=== PATIENT | male | born 1940 | race Caucasian/White ===

== ENCOUNTER → 2016-08-01 | Outpatient (CLI) | payer MEDICARE ==
[2015-11-30 00:46] VITALS: BP 171/69
[~2016-08-01] MED LIST: ASPI-482 PO; BACL10TA PO; BUPIVACAINE MPF 0.25% 10 ML VIAL. ONE; CINN500C PO; FENO160T PO; FLUT16SP NS; GLUC1TAB71 PO; LISI-338 PO; LISI10TA2 PO; LORA10TA68 PO; METF500T4 PO; MULT-18 PO; NIAC500T9 PO; OMEG1CAP6 PO; OTHER; SIMV40TA PO; TAMS0.4C2 PO; [UNRECOGNIZED DRUG - OTHER]; methylPREDNISolone ACETATE 40 MG/ML VIAL. ONE
--- NOTE | 2016-08-02 02:08 | PAIN ---
DATE OF SERVICE: 08/01/2016 PROGRESS NOTE DIAGNOSES: 1. Myofascial pain. 2. Low back pain. HISTORY OF PRESENT ILLNESS: The patient is a 75-year-old male who returns for followup, last seen in 03/2016. The patient underwent trigger point injections at that time with very good results, approximately 75-80% improvement. The patient reports the pain has been returning now and he has been late getting back for followup as he had other issues going on with his 's health and has had to deal with these first. The patient reports significant pain now in the base of the neck, shoulders, upper back, mid back, low back, left gluteus and hips bilaterally, worse with movement, worse in the morning with getting up and around. The patient reports the pain as an 8-9 on a scale 10 today, reports that he has been doing stretching and strengthening exercises as well as heat applications and ice applications, although has a significant tightness and stiffness throughout the regions of the neck, upper back, mid back, low back and hips, left greater than right. The patient reports no new motor or sensory deficits, no new bowel or bladder incontinence or other complaints. PHYSICAL EXAMINATION: VITAL SIGNS: The patient's blood pressure is 148/78, pulse 63, respirations 18, temperature is 98.1 degrees Fahrenheit, and weight is 178 pounds. GENERAL: The patient is awake, alert, oriented, appropriate, very pleasant demeanor. HEENT: Shows normocephalic, atraumatic. Extraocular movements are intact and symmetrical. Oral cavity shows mucous membranes are moist and pink. Dentition is intact. NECK: Shows anterior throat supple without palpable lymphadenopathy noted. Swallow reflex is symmetrical. CHEST: Shows normal on inspection. Breath sounds are clear to auscultation bilaterally. HEART: Shows S1 and S2 clear. ABDOMEN: Soft, nontender, and nondistended. No palpable organomegaly is noted. No rebound or guarding demonstrated. BACK: The patient's back shows spine grossly in midline. Normal appearing cervical lordotic curvature, thoracic kyphotic curvature, and lumbar lordotic curvature. Lumbar paraspinous musculature is moderately tender with palpation bilaterally with multiple areas of rope-like musculature, which are consistent with trigger point areas muscles in the upper, middle and lower distribution of the lumbar paraspinous muscles, slightly more on the left than the right, also in the left gluteus with very firm rope-like musculature, very tender with palpation, some mild areas on the right side, but much more severe on the left with palpation. The patient's thoracic spine shows multiple areas, left greater than right of trigger point region of musculature, very firm rope-like muscles without specific radiation on palpation. This is true in the trapezius musculature as well as the rhomboid muscles and the cervical paraspinous musculature shows the inferior aspect bilaterally, equal in tenderness as well as equal in tenderness on the trapezius musculature bilaterally. EXTREMITIES: Lower extremities show deep tendon reflexes 1+ in the patellar and tendo calcaneus tendons. Motor exam is strong with 5/5 dorsiflexion, extension, quadriceps and hamstring flexion and equal. Upper extremities show deep tendon reflexes at 2+ in the biceps and triceps tendons. Motor exam is strong with protection specialist strength rated at 5/5, bicep and tricep flexion intact and 5/5 and equal as well. PLAN: Options were discussed with the patient. The patient's old chart was reviewed and his current medication regimen and updated. Current review of systems updated today as well. We will proceed with trigger point injections of the aforementioned musculature today. Risks were again discussed including, but not limited to bleeding, infection, possibility of intravascular injection sequelae, pneumothorax, side effects of steroid medication, spread of local anesthetic and numbness and poor results regarding pain control. The patient understands and wished to proceed. The patient will return to clinic in approximately 4 weeks for followup. He was counseled on return appointment, activity level and side effects to be aware of. DIAGNOSES: 1. Myofascial pain. 2. Low back pain. PROCEDURE: Trigger point injections of the bilateral cervical paraspinous musculature, bilateral trapezius musculature, bilateral rhomboid musculature, bilateral thoracic and lumbar paraspinous musculature and left gluteus musculature using sterile prep and drape with local anesthetic. MEDICATIONS INJECTED: A total of 40 mg of Depo-Medrol plus total of 16 mL of 0.25% bupivacaine with negative aspiration at each site. CONDITION AT DISCHARGE: Stable. The patient tolerated procedure well, had no complications. CEM SEALS MD DR: HOLDEN/vanessa JOB#: [id number] / [id number]
== END | disposition home or self-care (01) ==
LOC: PNCL 08:44
PROVIDERS: ATTEND Anesthesiology
DX: M79.1 Myalgia (principal); E11.9 Type 2 diabetes mellitus without complications; I10 Essential (primary) hypertension; E78.00 Pure hypercholesterolemia, unspecified; Z98.49 Cataract extraction status, unspecified eye; Z85.828 Personal history of other malignant neoplasm of skin
CPT/HCPCS: 20553; J1030; J3490

== ENCOUNTER 2016-08-29 13:08 | Inpatient (IN) | payer MEDICARE ==
[~2016-08-29] VITALS: Ht 177.8 cm; Wt 79.8 kg
[~2016-08-29 13:08] MED LIST changes: -BUPIVACAINE MPF 0.25% 10 ML VIAL. ONE; -methylPREDNISolone ACETATE 40 MG/ML VIAL. ONE
[2016-08-29 13:54] LABS: BASO % 1 % (0-3); EOS % 1 % (0-3); HEMOGLOBIN 12.9 g/dL (13.0-17.5); LYMPH # 1.2 x10^3/uL (1.0-4.8); LYMPH % 17 % (24-48); MEAN CORPUSCULAR HEMOGLOBIN 29 pg (25-35); MEAN CORPUSCULAR HGB CONC 34 g/dL (31-37); MEAN CORPUSCULAR VOLUME 85 fL (79-100); MONO % 6 % (0-9); NEUT % 76 % (31-73); PLATELET COUNT 204 x10^3/uL (140-400); RED BLOOD COUNT 4.48 x10^6/uL (4.30-5.70); RED CELL DISTRIBUTION WIDTH 13.9 % (11.5-14.5)
[2016-08-29 14:09] LABS: BILIRUBIN,URINE NEGATIVE (NEG); GLUCOSE,URINE NEGATIVE (NEG); NITRITE,URINE NEGATIVE (NEG); PROTEIN,URINE NEGATIVE (NEG-TRACE); UROBILINOGEN,URINE 0.2 mg/dL (0.2 mg/dL)
--- NOTE | 2016-08-29 14:13 | EKG ---
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
[2016-08-29 14:14] LABS: CREATININE 1.8 mg/dL (0.7-1.3); GFR 36.9; POTASSIUM 4.1 mmol/L (3.5-5.1)
[2016-08-29 14:20] LABS: ALBUMIN 3.8 g/dL (3.4-5.0); ALBUMIN/GLOBULIN RATIO 1.3 (1.0-1.7); TOTAL BILIRUBIN 0.4 mg/dL (0.2-1.0); TOTAL PROTEIN 6.8 g/dL (6.4-8.2)
--- NOTE | 2016-08-29 14:26 | RAD ---
Portable chest, 08/29/2016: History: Cough, dizziness Comparison is made to a study from 08/11/2013. The heart size and pulmonary vascularity are normal. No pulmonary infiltrates are seen. A lingular nodule in the left lower chest has shown no significant change since 08/11/2013. There is no evidence of pleural fluid. Spinal stimulator leads extend into the lower thoracic spinal canal. IMPRESSION: 1. Unchanged lingular nodule. 2. No acute cardiopulmonary abnormality is detected.
[2016-08-29] MEDS ORDERED: ALPR0.5T6 PO (14:49)
[2016-08-29 14:56] LABS: BACTERIA,URINE 0 /HPF (0-FEW); RBC,URINE 0 /HPF (0-2); WBC,URINE 0 /HPF (0-4)
[2016-08-29 15:01] LABS: OBC FLU VALID
--- NOTE | 2016-08-29 16:22 | RAD ---
CT of the head without contrast, 08/29/2016: History: Dizziness Comparison is made to a study from 08/02/2013. The ventricles are within normal limits in size. There is no shift of the midline structures. There is no evidence of acute intracranial hemorrhage or mass effect. There are minimal bilateral deep white matter lucencies compatible with chronic ischemic change. There is mild mucosal thickening posteriorly in both maxillary sinuses. IMPRESSION: No acute intracranial abnormality is detected. PQRS Compliance Statement: One or more of the following individualized dose reduction techniques were utilized for this examination: 1. Automated exposure control 2. Adjustment of the mA and/or kV according to patient size 3. Use of iterative reconstruction technique
[2016-08-29] MEDS ORDERED: ONDANSETRON PF 4 MG/2 ML VIAL. IV PRN (17:00)
[2016-08-29] MEDS ORDERED: ACETAMINOPHEN 325 MG TABLET. PO PRN (17:00)
[2016-08-29] MEDS ORDERED: NITROGLYCERIN SUBLINGUAL 0.4 MG BOTTLE OF 25. SL PRN (17:00)
[2016-08-29] MEDS ORDERED: FENTANYL PF 100 MCG/2 ML VIAL. IV PRN (17:00)
[2016-08-29] MEDS: IV NORMAL SALINE 1000ML BAG 1,000 ML IV SCH (18:25)
[2016-08-29 19:30] VITALS: BP 167/83
--- NOTE | 2016-08-29 20:45 | ED.ADGEN ---
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 Patient states that he's been feeling "woozy", especially with standing and activity over the past several days. States that on Sunday he was on a walk with his dog , well walking up a steep hill he began experiencing sharp midsternal chest pain which improved at rest and then resolved. States that he was feeling slightly lightheaded when this occurred. He states he has not have recurrence of the chest pain, but when standing and with ambulation has been experiencing a feeling of being "off balance", feeling as though he might pass out. Denies any vertiginous type symptoms, any weakness numbness or tingling, states that when he stands and expresses the symptoms both of his arms feel "very heavy", and he has had some mild nausea as well. No vomiting, no abdominal pain, no focal weakness, numbness or tingling. No injuries. No similar symptoms previously. No recent travel or surgery, history of DVT or PE. Patient last had a cardiac evaluation several years ago. States he has been compliant with all medications. Review of Systems Review of Systems Constitutional: Denies fever or chills. [] Eyes: Denies change in visual acuity. [] HENT: Denies nasal congestion or sore throat. [] Respiratory: Denies cough or shortness of breath. [] Cardiovascular: Single episode of chest pain associated with shortness of breath and dizziness. No edema. GI: Denies abdominal pain, nausea, vomiting, bloody stools or diarrhea. [] : Denies dysuria. [] Musculoskeletal: Denies back pain or joint pain. [] Integument: Denies rash. [] Neurologic: Denies headache, focal weakness or sensory changes. "Off-balance feeling". "Woozy feeling". Endocrine: Denies polyuria or polydipsia. [] Lymphatic: Denies swollen glands. [] Psychiatric: Denies depression or anxiety. [] Allergies Allergies Allergies Coded Allergies Type Severity Reaction Last Updated Verified No Known Drug Allergies 11/12/13 No Physical Exam Physical Exam Constitutional: Well developed, well nourished, no acute distress, non-toxic appearance. [] HENT: Normocephalic, atraumatic, bilateral external ears normal, oropharynx moist, no oral exudates, nose normal. [] Eyes: PERRLA, EOMI, conjunctiva normal, no discharge. [] Neck: Normal range of motion, no tenderness, supple, no stridor. [] Cardiovascular:Heart rate regular rhythm, no murmur [] Lungs & Thorax: Bilateral breath sounds clear to auscultation [] Abdomen: Bowel sounds normal, soft, no tenderness, no masses, no pulsatile masses. [] Skin: Warm, dry, no erythema, no rash. [] Back: No tenderness, no CVA tenderness. [] Extremities: No tenderness, no cyanosis, no clubbing, ROM intact, no edema. [] Neurologic: Alert and oriented X 3, normal motor function, normal sensory function, no focal deficits noted. [] Psychologic: Affect normal, judgement normal, mood normal. [] Current Patient Data Vital Signs Vital Signs Date Time Temp Pulse Resp B/P Pulse Ox O2 Delivery O2 Flow Rate FiO2 08/29/16 16:30 72 156/73 Room Air 08/29/16 15:30 21 08/29/16 13:20 97.5 18 97.5 Lab Values Laboratory Tests Test 08/29/16 13:40 08/29/16 13:55 White Blood Count 7.0x10^3/uL (4.0-11.0) Red Blood Count 4.48x10^6/uL (4.30-5.70) Hemoglobin 12.9g/dL (13.0-17.5) L Hematocrit 38.0% (39.0-53.0) L Mean Corpuscular Volume 85fL (79-100) Mean Corpuscular Hemoglobin 29pg (25-35) Mean Corpuscular Hemoglobin Concent 34g/dL (31-37) Red Cell Distribution Width 13.9% (11.5-14.5) Platelet Count 204x10^3/uL (140-400) Neutrophils (%) (Auto) 76% (31-73) H Lymphocytes (%) (Auto) 17% (24-48) L Monocytes (%) (Auto) 6% (0-9) Eosinophils (%) (Auto) 1% (0-3) Basophils (%) (Auto) 1% (0-3) Neutrophils # (Auto) 5.3x10^3uL (1.8-7.7) Lymphocytes # (Auto) 1.2x10^3/uL (1.0-4.8) Monocytes # (Auto) 0.4x10^3/uL (0.0-1.1) Eosinophils # (Auto) 0.0x10^3/uL (0.0-0.7) Basophils # (Auto) 0.0x10^3/uL (0.0-0.2) Sodium Level 141mmol/L (136-145) Potassium Level 4.1mmol/L (3.5-5.1) Chloride Level 106mmol/L (98-107) Carbon Dioxide Level 27mmol/L (21-32) Anion Gap 8 (6-14) Blood Urea Nitrogen 27mg/dL (8-26) H Creatinine 1.8mg/dL (0.7-1.3) H Estimated GFR (Cockcroft-Gault) 36.9 BUN/Creatinine Ratio 15 (6-20) Glucose Level 168mg/dL (70-99) H Calcium Level 9.0mg/dL (8.5-10.1) Total Bilirubin 0.4mg/dL (0.2-1.0) Aspartate Amino Transferase (AST) 20U/L (15-37) Alanine Aminotransferase (ALT) 23U/L (16-63) Alkaline Phosphatase 47U/L (46-116) Troponin I Quantitative < 0.017ng/mL (0.000-0.055) IP-Fnb-W-Type Natriuretic Peptide 81pg/mL (0-449) Total Protein 6.8g/dL (6.4-8.2) Albumin 3.8g/dL (3.4-5.0) Albumin/Globulin Ratio 1.3 (1.0-1.7) Urine Collection Type Unknown Urine Color Yellow Urine Clarity Clear Urine pH 7.0 Urine Specific [place] <=1.005 Urine Protein Negativemg/dL (NEG-TRACE) Urine Glucose (UA) Negativemg/dL (NEG) Urine Ketones (Stick) Negativemg/dL (NEG) Urine Blood Negative (NEG) Urine Nitrite Negative (NEG) Urine Bilirubin Negative (NEG) Urine Urobilinogen Dipstick 0.2mg/dL (0.2 mg/dL) Urine Leukocyte Esterase Negative (NEG) Urine RBC 0/HPF (0-2) Urine WBC 0/HPF (0-4) Urine Bacteria 0/HPF (0-FEW) Influenza Type A Antigen Negative (NEGATIVE) Influenza Type B Antigen Negative (NEGATIVE) Laboratory Tests 08/29/16 13:40 Laboratory Tests 08/29/16 13:40 EKG EKG EC: Sinus rhythm, heart rate 64 beats minute, left axis deviation, patient with contour abnormalities noted in the inferior leads, and in the anterior leads, patient with no ST elevations or depressions, QTC of 385, DC of 232, QRS of 90, abnormal ECG, does not meet STEMI criteria. As interpreted by me. Radiology/Procedures Radiology/Procedures [] [address] [id number] IMAGING REPORT Signed PATIENT: SATHISH WIGGINS ACCOUNT: [id number] : 1940 LOCATION: ER AGE: 76 SEX: M EXAM STATUS: REG ER ORD. PHYSICIAN: KIM CHRISTINA DO REASON: Dizziness PROCEDURE: HEAD WO CONTRAST CT of the head without contrast, 08/29/2016: History: Dizziness Comparison is made to a study from 08/02/2013. The ventricles are within normal limits in size. There is no shift of the midline structures. There is no evidence of acute intracranial hemorrhage or mass effect. There are minimal bilateral deep white matter lucencies compatible with chronic ischemic change. There is mild mucosal thickening posteriorly in both maxillary sinuses. IMPRESSION: No acute intracranial abnormality is detected. PQRS Compliance Statement: One or more of the following individualized dose reduction techniques were utilized for this examination: 1. Automated exposure control 2. Adjustment of the mA and/or kV according to patient size 3. Use of iterative reconstruction technique DICTATED and SIGNED BY: MARGARET TANG MD DATE: 08/29/16 [id number] CC: KIM CHRISTINA DO; Manuel LOVE MD ~ Impressions: [address] [id number] IMAGING REPORT Signed PATIENT: SATHISH WIGGINS ACCOUNT: [id number] : 1940 LOCATION: ER AGE: 76 SEX: M EXAM STATUS: REG ER ORD. PHYSICIAN: KIM CHRISTINA DO REASON: Cough/dizziness PROCEDURE: PORTABLE CHEST 1V Portable chest, 08/29/2016: History: Cough, dizziness Comparison is made to a study from 08/11/2013. The heart size and pulmonary vascularity are normal. No pulmonary infiltrates are seen. A lingular nodule in the left lower chest has shown no significant change since 08/11/2013. There is no evidence of pleural fluid. Spinal stimulator leads extend into the lower thoracic spinal canal. IMPRESSION: 1. Unchanged lingular nodule. 2. No acute cardiopulmonary abnormality is detected. DICTATED and SIGNED BY: MARGARET TANG MD DATE: 08/29/161420 CC: KIM CHRISTINA DO; Manuel LOVE MD ~ Course & Med Decision Making Course & Med Decision Making Pertinent Labs and Imaging studies reviewed. (See chart for details) Patient well-appearing, has had no recurrence of chest pain since this episode occurred, and has no "woozy feeling" at rest. Due to patient's complaints of feeling off balance, CT of the head obtained to rule out any occult intracranial abnormality. Examination is otherwise unremarkable. I did discuss with patient that his chest pain, nausea, and presyncopal type feelings along with his arm heaviness could be associated with an anginal equivalent, and as he is 70 sutures old and last had a cardiac evaluation 3 years ago with a stress test, that based on his symptoms and the persistence, admission to the hospital for dinner monitoring and evaluation is appropriate. Patient voiced understanding and agreement with this plan area findings as above were discussed with Dr. Love the patient's primary care provider, patient was accepted to his service as a full admission to the medical telemetry floor, consultation for cardiology serial enzymes repeat ECG included in bridge orders per our discussion. Dragon Disclaimer Dragon Disclaimer This electronic medical record was generated, in whole or in part, using a voice recognition dictation system. Departure Impression: Primary Impression: Chest pain Disposition: ADMITTED INPATIENT Admitting Physician: Klaudia Love Condition: IMPROVED KIM CHRISTINA DO Aug 29, 2016 20:45
[2016-08-29] MEDS ORDERED: LOSA50TA6 PO (22:52)
[2016-08-29] MEDS ORDERED: GUAI600T38 PO (22:52)
[2016-08-29] MEDS ORDERED: ALPR0.25 PO (22:52)
[2016-08-29 23:00] VITALS: BP 157/77
[2016-08-30 03:09] VITALS: BP 129/70
[2016-08-30] MEDS: IV NORMAL SALINE 1000ML BAG 1,000 ML IV SCH (04:11)
[2016-08-30 06:12] LABS: BASO % 1 % (0-3); CALCIUM 8.6 mg/dL (8.5-10.1); CREATININE 1.8 mg/dL (0.7-1.3); EOS % 2 % (0-3); GFR 36.9; HEMATOCRIT 36.2 % (39.0-53.0); HEMOGLOBIN 12.1 g/dL (13.0-17.5); LYMPH # 1.6 x10^3/uL (1.0-4.8); LYMPH % 29 % (24-48); MEAN CORPUSCULAR HEMOGLOBIN 29 pg (25-35); MEAN CORPUSCULAR HGB CONC 34 g/dL (31-37); MEAN CORPUSCULAR VOLUME 86 fL (79-100); MONO % 9 % (0-9); NEUT % 60 % (31-73); PLATELET COUNT 195 x10^3/uL (140-400); POTASSIUM 4.3 mmol/L (3.5-5.1); RED BLOOD COUNT 4.21 x10^6/uL (4.30-5.70); RED CELL DISTRIBUTION WIDTH 13.6 % (11.5-14.5); WHITE BLOOD COUNT 5.5 x10^3/uL (4.0-11.0)
[2016-08-30 07:00] VITALS: BP_SYST 146; BP_SYST 149; BP_SYST 152; BP_DIAS 68; BP_DIAS 69; BP_DIAS 71
[2016-08-30] MEDS ORDERED: GUAIFENESIN ER 600 MG TABLET.ER PO PRN (08:00)
[2016-08-30] MEDS ORDERED: FLUTICASONE 50MCG/NASAL SPRAY 16GM BOTTLE. NS PRN (08:00)
--- NOTE | 2016-08-30 08:03 | EKG ---
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
[2016-08-30] MEDS ORDERED: MULTIVITAMIN with MINERAL TABLET. PO SCH (09:00)
[2016-08-30] MEDS ORDERED: BACLOFEN 10 MG TABLET PO SCH (09:00)
[2016-08-30] MEDS ORDERED: ASPIRIN ENTERIC COATED 81 MG TABLET.DR. PO SCH (09:00)
[2016-08-30] MEDS ORDERED: FENOFIBRATE,MICRONIZED 134 MG CAPSULE PO SCH (09:00)
[2016-08-30] MEDS ORDERED: ALPRAZOLAM 0.25 MG TABLET PO SCH (09:00)
[2016-08-30] MEDS ORDERED: OMEGA-3 FATTY ACIDS/FISH OIL 1,000 MG CAPSULE. PO SCH (09:00)
[2016-08-30] MEDS ORDERED: TAMSULOSIN 0.4 MG CAP.ER.24H. PO SCH (09:00)
[2016-08-30] MEDS ORDERED: LOSARTAN POTASSIUM 50 MG TABLET. PO SCH (09:00)
--- NOTE | 2016-08-30 09:57 | PDOC2 ---
CARDIAC CONSULT DATE OF CONSULT Date of Consult DATE: 08/30/16 TIME: 09:51 REASON FOR CONSULT Reason for Consult: Chest Pain REFERRING PHYSICIAN Referring Physician: Dr. Long SOURCE Source: Chart review, Patient HISTORY OF PRESENT ILLNESS HISTORY OF PRESENT ILLNESS This is a 76 yo male who presented with complaints of dizziness and chest pain. Reports he and his took their dogs for a walk yesterday afternoon. Had a sudden onset of sharp pain in his right chest. Lasted seconds then resolved without intervention. Reports he felt "funny" when pain occurred, further explaining dizzy and heaviness in his bilateral arms. Denies any associated shortness of breath, diaphoresis, nausea, or palpitations. Patient reports he has experienced "woozy" spells intermittently over the last couple of years. Seem more pronounced in the winter. Worse upon standing to quickly or with bending over. Contributes to possible medication side effects although his medications were adjusted and he did not see a significant improvement in symptoms. Has chronic back pain from previous injury; s/p spinal simulator implant. No previous h/o CAD. Appears slightly anxious; requesting to have stress test to "ease my mind." PAST MEDICAL HISTORY Cardiovascular: HTN, Hyperlipidemia Pulmonary: No pertinent hx Heme/Onc: Anemia NOS, Cancer (skin) Psych: Anxiety Musculoskeletal: low back pain, Osteoarthritis Rheumatologic: No pertinent hx Infectious disease: No pertinent hx ENT: No pertinent hx Renal/: Chronic renal insuff, Benign prostatic enlarg. Endocrine: Diabetes Dermatology: No pertinent hx PAST SURGICAL HISTORY Past Surgical History: Tonsillectomy, Other (spinal stimulator implant, hip sx) FAMILY HISTORY Family History: Coronary Artery Disease SOCIAL HISTORY Smoke: No ALCOHOL: none Drugs: None Lives: with Family CURRENT MEDICATIONS CURRENT MEDICATIONS Current Medications Medications (Trade) Dose Ordered Sig/Praful Route PRN Reason Start Time Stop Time Status Last Admin Dose Admin Sodium Chloride (Iv Sodium Chloride 0.9% 1000ml Bag) 1,000 ml @ 100 mls/hr Q10H IV 08/29/16 16:58 08/30/16 16:57 08/30/16 04:11 ALLERGIES ALLERGIES: Coded Allergies: No Known Drug Allergies (Unverified , 11/12/13) ROS Review of System 14 point ROS conducted with pertinent positives noted above in HPI PHYSICAL EXAM General: Alert, Oriented X3, Cooperative, No acute distress HEENT: Atraumatic, Mucous membr. moist/pink Lungs: Clear to auscultation, Normal air movement Heart: Regular rate, Normal S1, Normal S2 Abdomen: Soft, No tenderness Extremities: No edema, Normal pulses Skin: No significant lesion Neuro: Normal speech, Sensation intact Psych/Mental Status: Mental status NL, Mood NL MUSCULOSKELETAL: Osteoarthritic changes both hands VITALS VITALS Vital Signs Date Time Temp Pulse Resp B/P Pulse Ox O2 Delivery O2 Flow Rate FiO2 08/30/16 07:00 98.9 75 20 146/68 98 Room Air 98.9 LABS Lab: Laboratory Tests Test 08/29/16 13:40 08/29/16 13:55 08/29/16 20:40 08/29/16 22:14 White Blood Count 7.0x10^3/uL (4.0-11.0) Red Blood Count 4.48x10^6/uL (4.30-5.70) Hemoglobin 12.9g/dL (13.0-17.5) Hematocrit 38.0% (39.0-53.0) Mean Corpuscular Volume 85fL (79-100) Mean Corpuscular Hemoglobin 29pg (25-35) Mean Corpuscular Hemoglobin Concent 34g/dL (31-37) Red Cell Distribution Width 13.9% (11.5-14.5) Platelet Count 204x10^3/uL (140-400) Neutrophils (%) (Auto) 76% (31-73) Lymphocytes (%) (Auto) 17% (24-48) Monocytes (%) (Auto) 6% (0-9) Eosinophils (%) (Auto) 1% (0-3) Basophils (%) (Auto) 1% (0-3) Neutrophils # (Auto) 5.3x10^3uL (1.8-7.7) Lymphocytes # (Auto) 1.2x10^3/uL (1.0-4.8) Monocytes # (Auto) 0.4x10^3/uL (0.0-1.1) Eosinophils # (Auto) 0.0x10^3/uL (0.0-0.7) Basophils # (Auto) 0.0x10^3/uL (0.0-0.2) Sodium Level 141mmol/L (136-145) Potassium Level 4.1mmol/L (3.5-5.1) Chloride Level 106mmol/L (98-107) Carbon Dioxide Level 27mmol/L (21-32) Anion Gap 8 (6-14) Blood Urea Nitrogen 27mg/dL (8-26) Creatinine 1.8mg/dL (0.7-1.3) Estimated GFR (Cockcroft-Gault) 36.9 BUN/Creatinine Ratio 15 (6-20) Glucose Level 168mg/dL (70-99) Calcium Level 9.0mg/dL (8.5-10.1) Total Bilirubin 0.4mg/dL (0.2-1.0) Aspartate Amino Transf (AST/SGOT) 20U/L (15-37) Alanine Aminotransferase (ALT/SGPT) 23U/L (16-63) Alkaline Phosphatase 47U/L (46-116) Troponin I Quantitative < 0.017ng/mL (0.000-0.055) < 0.017ng/mL (0.000-0.055) TZ-Smu-N-Type Natriuretic Peptide 81pg/mL (0-449) Total Protein 6.8g/dL (6.4-8.2) Albumin 3.8g/dL (3.4-5.0) Albumin/Globulin Ratio 1.3 (1.0-1.7) Urine Collection Type Unknown Urine Color Yellow Urine Clarity Clear Urine pH 7.0 Urine Specific [place] <=1.005 Urine Protein Negativemg/dL (NEG-TRACE) Urine Glucose (UA) Negativemg/dL (NEG) Urine Ketones (Stick) Negativemg/dL (NEG) Urine Blood Negative (NEG) Urine Nitrite Negative (NEG) Urine Bilirubin Negative (NEG) Urine Urobilinogen Dipstick 0.2mg/dL (0.2 mg/dL) Urine Leukocyte Esterase Negative (NEG) Urine RBC 0/HPF (0-2) Urine WBC 0/HPF (0-4) Urine Bacteria 0/HPF (0-FEW) Influenza Type A Antigen Negative (NEGATIVE) Influenza Type B Antigen Negative (NEGATIVE) Glucose (Fingerstick) 157mg/dL (70-99) Test 08/30/16 04:45 08/30/16 08:22 White Blood Count 5.5x10^3/uL (4.0-11.0) Red Blood Count 4.21x10^6/uL (4.30-5.70) Hemoglobin 12.1g/dL (13.0-17.5) Hematocrit 36.2% (39.0-53.0) Mean Corpuscular Volume 86fL (79-100) Mean Corpuscular Hemoglobin 29pg (25-35) Mean Corpuscular Hemoglobin Concent 34g/dL (31-37) Red Cell Distribution Width 13.6% (11.5-14.5) Platelet Count 195x10^3/uL (140-400) Neutrophils (%) (Auto) 60% (31-73) Lymphocytes (%) (Auto) 29% (24-48) Monocytes (%) (Auto) 9% (0-9) Eosinophils (%) (Auto) 2% (0-3) Basophils (%) (Auto) 1% (0-3) Neutrophils # (Auto) 3.3x10^3uL (1.8-7.7) Lymphocytes # (Auto) 1.6x10^3/uL (1.0-4.8) Monocytes # (Auto) 0.5x10^3/uL (0.0-1.1) Eosinophils # (Auto) 0.1x10^3/uL (0.0-0.7) Basophils # (Auto) 0.0x10^3/uL (0.0-0.2) Sodium Level 145mmol/L (136-145) Potassium Level 4.3mmol/L (3.5-5.1) Chloride Level 110mmol/L (98-107) Carbon Dioxide Level 26mmol/L (21-32) Anion Gap 9 (6-14) Blood Urea Nitrogen 27mg/dL (8-26) Creatinine 1.8mg/dL (0.7-1.3) Estimated GFR (Cockcroft-Gault) 36.9 Glucose Level 86mg/dL (70-99) Calcium Level 8.6mg/dL (8.5-10.1) Troponin I Quantitative < 0.017ng/mL (0.000-0.055) Glucose (Fingerstick) 101mg/dL (70-99) ECHOCARDIOGRAM ECHOCARDIOGRAM <Conclusion> Left ventricle systolic function is normal. The Ejection Fraction is estimated at 55%. There is normal LV segmental wall motion. Transmitral Doppler flow pattern is Grade I-abnormal relaxation pattern. Doppler and Color Flow revealed trace tricuspid valve regurgitation There is no evidence of significant pericardial effusion. DATE: 04/22/14 1409 STRESS TEST STRESS TEST Conclusion 1. No evidence of significant ischemia or previous myocardial infarction appreciated. 2. Ejection fraction calculated to be 72% with normal wall motion on gated SPECT images. 3. Normal nuclear imaging scan. DATE: 08/15/13 0911 ASSESSMENT/PLAN ASSESSMENT/PLAN 1. Chest pain, atypical 2. Dizziness 3. Hypertension 4. Hyperlipidemia 5. Diabetes, II 6. CKD 7. Anxiety Recommendations ASA, check lipids Resume home anti-HTN therapy Check orthos. tele monitoring. Pain appears to be non-cardiac but given desire for stress test and significant risk factors, will proceed with MPI to rule out ischemia Problems: KWAKU CONCEPCION APRN Aug 30, 2016 09:57
--- NOTE | 2016-08-30 10:50 | ACF ---
Admission Forms Criteria CHEST PAIN Clinical Indications for Admission to Inpatient Care (Place 'X' for any and all applicable criteria): Admission is indicated for chest pain and ANY ONE of the following(1)(2)(3)(4)(5 ): [ ]I. Angina with acute coronary syndrome (Also use Myocardial Infarction or Angina guideline) [ ]II. Hemodynamic instability [ ]III. Angina needing acute intervention as indicated by ALL of the following( 11)(12): [ ]a) Unstable angina is present as indicated by angina that is ANY ONE of the following: [ ]i) New onset [ ]ii) Nocturnal [ ]iii) Prolonged at rest [ ]iv) Progressive [ ]b) Angina warrants acute intervention as indicated by ANY ONE of the following: [ ]i) Recurrent angina (e.g, not responding as previously to treatment) [ ]ii) Angina at rest or with low-level activities despite initial medical therapy [ ]iii) New or presumably new ST-segment depression on ECG [ ]iv) Signs or symptoms of heart failure (eg, dyspnea, pulmonary edema) [ ]v) New or worsening mitral regurgitation [ ]vi) Hemodynamic instability [ ]vii) Dangerous arrhythmia (eg, sustained ventricular tachycardia) [ ]viii) History of percutaneous coronary intervention within 6 months [ ]ix) History of coronary artery bypass graft surgery [ ]x) CLARENCE risk score of 2 or greater[A] [ ]xi) History of Diabetes(14) [ ]xii) High-risk cardiac ischemia findings on noninvasive testing (e.g, echocardiogram, treadmill testing, nuclear scan) [ ]xiii) Chronic renal insufficiency (ie, estimated GFR less than 60 mL/min/1.732m) [ ]xiv) Left ventricular ejection fraction less than 40% [ ]IV. Evidence of SD (eg, cardiac biomarkers positive, ST-segment elevation on ECG) also use Myocardial Infarction Criteria Form. [ ]V. Pulmonary edema [ ]. Respiratory distress [ ]VII. Chest pain indicative of serious diagnosis other than coronary artery disease (eg, aortic dissection) [ ]VIII. Contraindications and/or Inappropriate clinical situations for Observational Care in patients with Chest Pain, when ANY ONE of the following is required: [ ]a) Patient with risk factor for pulmonary embolism, acute coronary syndrome and myocardial infarction (18) [ ]b) Patient with Pulmonary embolism require an average LOS of 4.3 days, therefore emergency department observation management is inappropriate 18,23 [ ]c) Painful condition/s in the elderly, have the highest rate of recidivism after emergency department observation management (10.8%) 20,21,22 [ ]d) Elevated cardiac biomarker requires intensive and exhaustive care (19) [X]IX. General contraindications and/or Inappropriate clinical situations for Observational Care in patients with Chest Pain, when ANY ONE of the following is required: [X]a) Prediction of prolongation of LOS based on ANY ONE of the following may be considered as a contraindication for observational care 2, 3, 4, 5, 6, 7, 8, 9, 10, 11 [X]i) Age > 65 yrs. [ ]ii) Patient arriving by ambulance [ ]iii) Patient with high acuity [X]iv) Patient requiring vital sign monitoring [ ]v) Patient on IV medication [ ]b) Systolic blood pressures 180mmHg 3,12 [ ]c) Patient with altered mental status including delirium and other alteration of consciousness, (3) [ ]d) Patient whose discharge disposition will be to a senior living home or rehabilitation home should not be managed in Emergency Department Observation Unit. CMS rule requires 3 days hospital stay before such placement. 3,13 [ ]e) Patient with failure to thrive due to broad array of etiologies 3,16,17 [ ]f) Inability to ambulate 3,14 Extended stay beyond goal length of stay may be needed for (1)(28): [ ]a) Specific condition diagnosed after evaluation (eg, pulmonary embolism, aortic dissection) [ ]b) Unstable angina [ ]c) Continued suspicion of acute coronary syndrome with inability to complete needed cardiac evaluation (eg, patient clinically unable to undergo stress testing) [ ]d) Myocardial infarction (Contents from ANGINA and CHEST PAIN clinical indications for admission to inpatient care have been integrated in this form) The original [employer] content created by [employer] has been revised. The portions of the content which have been revised are identified through the use of italic text or in bold, and [facility] has neither reviewed nor approved the modified material. All other unmodified content is copyright [employer]. Please see references footnoted in the original [facility] edition 2016 Admission Criteria Met?: Yes DEX MCKEON Aug 30, 2016 10:49
[2016-08-30 11:00] VITALS: BP 158/61
[2016-08-30] MEDS ORDERED: REGADENOSON 0.4 MG/5 ML DISP.SYRIN. IV ONE (11:30)
[2016-08-30] MEDS ORDERED: NITR0.4T SL (13:56)
--- NOTE | 2016-08-30 14:13 | PDOC ---
Provider Note Provider Note combined H&P and discharge dictated #[id number] Manuel RODRIGUEZ MD Aug 30, 2016 14:13
[2016-08-30 15:02] VITALS: BP 164/70
[2016-08-30 16:34] LABS: CHOLESTEROL/HDL RATIO 5.1
--- NOTE | 2016-08-30 17:43 | HP ---
ADMIT DATE: 08/30/2016 ADMISSION DIAGNOSIS: Chest pain. DISCHARGE DIAGNOSIS: Chest wall pain. CONSULTS: Cardiology, Dr. Carias. PROCEDURE: Incomplete myocardial perfusion study. HISTORY OF PRESENT ILLNESS AND HOSPITAL COURSE: This is a 76-year-old white male who was walking his dogs on Sunday with his . He developed some chest pain at that time. The pain was on his right chest though and was rather fleeting. another facility, had trouble raising his arms afterwards and that on Sunday he was still not feeling well. He admits to being tired and feeling dizzy and woozy. That was most of the day on Sunday. He has a history of some sinus congestion and takes daily nasal steroids. He did not feel like he had a cold, but he did not sleep well and he decided to come to the ER to get checked out on the day of admission. His ER studies were unremarkable. Cardiac enzymes were negative. His lab work was nonspecific other than very mild anemia and some elevated creatinine consistent with his chronic kidney disease. He had a cardiac evaluation in 04/2014 with an unremarkable echo then and a normal nuclear imaging scan. Because of his chest pain, hypertension, hyperlipidemia, type 2 diabetes, anxiety and underlying renal disease, he was admitted for further observation and treatment. He did not sleep well overnight. He was set up for a stress test today and he gets started in it and then had an anxiety attack that developed into a panic attack and he was unable to complete the study and wants to be discharged home. He has been seen in cardiac consultation by the nurse practitioner at this point. He has been started on aspirin. PAST MEDICAL HISTORY: Significant for borderline diabetes, hypertension, hyperlipidemia, chronic kidney disease stage III, BPH. PAST SURGICAL HISTORY: Include tonsillectomy and hip procedure and thoracic spinal stimulator implant that no longer functions. He has had skin cancer removed from his right ear and his forehead. ALLERGIES: He has no known drug allergies. MEDICATIONS: His home medications include Xanax 0.25 mg daily as needed, aspirin 81 daily, baclofen 10 mg b.i.d., fenofibrate 160 daily, fluticasone nasal spray 2 sprays each nostril daily, guaifenesin 600 mg extended release b.i.d. p.r.n., losartan 50 mg daily, multivitamin daily, fish oil 1000 mg daily, tamsulosin 0.4 mg at bedtime. FAMILY HISTORY: Noncontributory. SOCIAL HISTORY: He does not smoke. He is . His has had some recent health problems, which has caused some stress. REVIEW OF SYSTEMS: No other exertional chest pain. No palpitations. No other cardiac symptoms. No recent lung symptoms. HEENT: Positive for nasal congestion and allergies, but has not had any eye symptoms. He tends to have a dry mouth, a little bit of a sore throat chronically. He has not had any abdominal pain, nausea, vomiting. He has not had any change in his bowels. He has not had any urinary tract symptoms and seems to empty his bladder fine. He has not had any musculoskeletal acute symptoms. He has his chronic joint pain, but maintains his active ADLs. MENTAL HEALTH: There has been increase in stress. He had not had a panic attack until this stress test though in quite some time. PHYSICAL EXAMINATION: VITAL SIGNS: Stable, currently blood pressure was elevated as high as 186/81, heart rate has ranged from 58-90, monitor showing sinus. HEENT: Positive for nasal congestion, otherwise unremarkable. Mucous membranes are moist. NECK: Supple, no bruit. No mass. HEART: Regular rate and rhythm, no murmurs heard. LUNGS: Clear to auscultation. ABDOMEN: Soft, nondistended, nontender. EXTREMITIES: There is no clubbing, cyanosis or peripheral edema. Strength is good. He is ambulating without pain. No chest wall pain is palpable or reproducible. SKIN: Unremarkable, without lesions or bruises. LABORATORY STUDIES: Hemoglobin has dropped from 12.9-12.1, but otherwise his CBC is unremarkable. Chemistries show chloride of 110, BUN of 27, creatinine of 1.8, EGFR of 39. Glucose has ranged from 86-108. Cardiac enzymes are negative. Urinalysis is unremarkable. Flu test was negative. IMAGING: Chest x-ray shows a stable lung nodule and a thoracic spinal cord stimulator implant. His CT of his head showed no acute process. There are some mild bilateral deep white matter lucencies consistent with chronic ischemic change and there is some mild mucosal thickening posteriorly in both maxillary sinuses. ASSESSMENT AND PLAN: 1. Chest pain, appears noncardiac and he appears low risk. He had a normal stress test and echo in 2013. His pain is atypical. He had a panic attack trying to do a stress test this time and has refused to have any additional testing done. His panic attack was relieved though with Xanax. 2. Dizziness is probably multifactorial, most likely related to his sinus congestion for which he will continue to use his Flonase. 3. Hypertension. Continue his home meds. 4. Hyperlipidemia. Continue his home meds. 5. Benign prostatic hypertrophy. Continue his home meds. 6. Anxiety. Continue his home meds. PLAN: He will be discharged home. He will follow up outpatient for his stress test with Cardiology. He was given a prescription for Nitrostat 0.4 mg 1 sublingual p.r.n., exertional chest pain, #25. He will continue his home meds including his aspirin 81 mg daily. Follow up with me in a week or two. W Ian RODRIGUEZ MD DR: KAYLI/vanessa JOB#: [id number] / [id number]
--- NOTE | 2016-08-30 18:55 | RAD ---
APPROVED REPORT Imaging Protocol IMAGE PROTOCOL: Rest Tc-99m/stress Tc-99m 1 day Rest: Stress: Viability: Radiopharm.Tc99m Sestamibi [id number] Duration 17min. Img Date 08/30/2016 Inj-Img [id number]. Rest Admin Site:IV - Left AntecubitalAdministrator:FRED Jacobson Other Information Quality:Uninterpretable Conclusion 1. Incomplete myocardial perfusion study. Only resting images performed as patient could not tolerate repeat stress images. 2. Based on resting images only without gating there appears to be grossly normal perfusion. Recommendations Consider outpatient stress echocardiogram for further evaluation if clinically indicated.
== END 2016-08-30 15:30 | disposition home or self-care (01) | DRG 313 ==
LOC: ER 13:08 → ED HOLD 16:40 → 5 NORTH 19:46
PROVIDERS: ADMIT Family Medicine; ATTEND Family Medicine
DX: R07.89 Other chest pain (principal); D64.9 Anemia, unspecified; E11.22 Type 2 diabetes mellitus with diabetic chronic kidney disease; E78.00 Pure hypercholesterolemia, unspecified; R42 Dizziness and giddiness; R09.81 Nasal congestion; E78.5 Hyperlipidemia, unspecified; F41.0 Panic disorder [episodic paroxysmal anxiety]; G89.29 Other chronic pain; I12.9 Hypertensive chronic kidney disease with stage 1 through stage 4 chronic kidney disease, or unspecified chronic kidney disease; N18.3 Chronic kidney disease, stage 3 (moderate); M54.5 Low back pain; N40.0 Benign prostatic hyperplasia without lower urinary tract symptoms; Z82.49 Family history of ischemic heart disease and other diseases of the circulatory system; Z85.828 Personal history of other malignant neoplasm of skin; Z79.82 Long term (current) use of aspirin
CPT/HCPCS: 36415; 70450; 71010; 78451; 80048; 80053; 80061; 81001; 82947; 83880; 84484; 85027; 87804; 93005; A9500; J7030; 99285-25

== ENCOUNTER → 2016-09-01 | Outpatient (CLI) | payer MEDICARE ==
[2016-08-30 15:02] VITALS: BP 164/70
[~2016-09-01] MED LIST changes: +ALPR0.25 PO; +ALPR0.5T6 PO; +GUAI600T38 PO; +LOSA50TA6 PO; +NITR0.4T SL; +REGADENOSON 0.4 MG/5 ML DISP.SYRIN. IV ONE
--- NOTE | 2016-09-01 11:10 | RAD ---
APPROVED REPORT Test Type: Pharmacological Stress Nurse/Tech: Rita Duron R.N. Test Indications: chest pain Cardiac History: htn, dm Medications: see ehr Medical History: see ehr Resting ECG: sr Resting Heart Rate: 72 bpm Resting Blood Pressure: 102/66mmHg Pretest Chest Pain: No chest pain Nurse/Tech Notes lungs cta, heart tones regular, good radial pulse Consent: The procedure was explained to the patient in lay terms. Informed consent was witnessed. Boogie eout was entered into [employer]. History and Stress Test performed by Rita Duron R.N. Pharm. Details Pharmacologic stress testing was performed using 0.4mg per 5ml of regadenoson given intravenously ove r 7-10 seconds. Stress Symptoms No chest pain or symptoms. POST EXERCISE Reason for Termination: Infusion complete Target HR: No Max HR: 94 bpm Max Blood Pressure: 110/44mmHg Chest Pain: No. Arrhythmia: Yes. pacs ST Change: No. INTERPRETATION Stress EKG Conclusion: The resting EKG showed a sinus rhythm with minimal nonspecific ST-T wave rm es. The stress EKG showed no significant changes from baseline. No EKG evidence of stress-induced ischemia. Imaging Protocol IMAGE PROTOCOL: stress only Rest: Stress: Viability: Radiopharm.Tc99m Sestamibi Dose36.1mCi Duration 12min. Img Date 09/01/2016 Inj-Img [id number]. Stress Admin Site: IV - Right AntecubitalAdministrator: FRED Jacobson STRESS DATA End Diast. Vol.59.0mlAv. Heart Rate76.0bpm End Syst. Vol.12.0mlCO Index BSA0.0L/min Myocardial Gams586.0gEject. Whgkdttd84.0% Stress Rates Pk. Fill Rate3.60EDV/secLVtime Pk. Fill 236.49msec Pk. Empty Rate5.21ESV/secLVtime Pk. Wlwys271.05msec 06/20 Pk. Fill1.34EDV/sec Stress Scores Regional WT2.00Summed WT10.00 Regional WM0.00Summed WM1.00 LV Perfusion Stress images were performed and showed no significant defects. Wall Motion Left ventricular systolic function is normal with an ejection fraction of greater than 70%. LV Perf. Quant 17 Seg. SSS0.00 Stress Defect Extent (% LAD)0.00Rest Defect Extent (% LAD)Rev. Defect Extent (% LAD)0.00 Stress Defect Extent (% LCX) 0.00Rest Defect Extent (% LCX)Rev. Defect Extent (% LCX)0.00 Stress Defect Extent (% RCA)0.00Rest Defect Extent (% RCA)Rev. Defect Extent (% RCA)0.00 Stress Defect Extent (% MIKAL)0.00Rest Defect Extent (% MIKAL)Rev. Defect Extent (% MIKAL)0.00 Conclusion 1. No EKG evidence of stress-induced ischemia. 2. Normal stress images showing no ischemia or infarct. 3. Normal left ventricular systolic function with an ejection fraction of greater than 70%. 4. Low risk Lexiscan nuclear stress test.
== END | disposition home or self-care (01) ==
LOC: NM 07:54
PROVIDERS: ATTEND Nurse Practitioner
DX: R07.9 Chest pain, unspecified (principal)
CPT/HCPCS: 78451; 93017; 96374; A9500; J2785

== ENCOUNTER → 2016-09-26 | Outpatient (CLI) | payer MEDICARE ==
[2016-08-30 15:02] VITALS: BP 164/70
[~2016-09-26] MED LIST changes: +BUPIVACAINE MPF 0.25% 10 ML VIAL. ONE; -REGADENOSON 0.4 MG/5 ML DISP.SYRIN. IV ONE; +methylPREDNISolone ACETATE 40 MG/ML VIAL. ONE
--- NOTE | 2016-09-27 00:29 | PAIN ---
DATE OF SERVICE: 09/26/2016 DIAGNOSES: 1. Myofascial pain. 2. Low back pain. HISTORY OF PRESENT ILLNESS: The patient is a 76-year-old male who returns for followup status post trigger point injections, last seen 08/01/2016. The patient did very well with these with about an 80-85% improvement, but pain returning now over the past few weeks with increased pain in the base of the shoulders, base of the neck, upper back, mid back, low back, bilateral posterior gluteus regions, more on the right than the left with stiffness increasing, rated as 8 on a scale of 10 at most times, this is worse with activity. The patient reports he has been increasing his activity at home, doing some yard work and was carrying some heavy items up and down some stairs, which he ____ exacerbated his pain. The patient reports no new motor or sensory deficits or other complaints. The patient reports otherwise doing well except for the spasticity and pain again somewhat worse on the right in the mid back, low back, upper back and neck. PHYSICAL EXAMINATION: VITAL SIGNS: Today, the patient's blood pressure is 148/71, pulse 57, respirations are 18, temperature is 98.2 degrees Fahrenheit, height is 5 feet 10 inches, weighs 175 pounds. GENERAL: The patient is awake, alert, oriented, appropriate, very pleasant demeanor. HEENT: Head shows normocephalic, atraumatic. Extraocular movements are intact and symmetrical. Oral cavity shows mucous membranes moist and pink. Dentition is intact. NECK: Shows anterior throat supple without palpable lymphadenopathy noted. Swallow reflex is symmetrical. CHEST: Shows normal on inspection. Breath sounds clear to auscultation bilaterally. HEART: Shows S1 and S2 clear. ABDOMEN: Soft, nontender, nondistended. No palpable organomegaly is noted. No rebound or guarding demonstrated. BACK: Shows spine grossly midline. Normal appearing thoracic kyphosis and lumbar lordotic curvature. With palpation, there is significant tenderness and very firm rope-like musculature throughout the cervical paraspinous musculature, mostly in the middle and lower distribution bilaterally into the superior medial and lateral trapezius, rhomboid distribution, thoracic paraspinous muscles as well as lumbar paraspinous muscle, more tender on the right than the left with very rope-like firm musculature consistent with trigger point areas also in to the low lumbar distribution in the right side greater than left in the lumbar paraspinous muscles as well as into the superior gluteus bilaterally, more on the right than the left. Again, more tender with rope-like musculature in this region as well bilaterally. Options were discussed with the patient and the patient's old chart was reviewed and his current medication regimen updated. Current review of systems updated today as well. We will proceed with trigger point injections of the identified musculature. Risks were again discussed including, but not limited to bleeding, infection, possibility of intravascular injection sequelae, spread of local anesthetic and numbness, pneumothorax, side effects of steroid medication and poor results regarding pain control. The patient understands these and wishes to proceed. The patient will return to clinic in approximately 4 weeks for followup. He was counseled on return appointment, activity level and side effects to be aware of. DIAGNOSIS: Myofascial pain. PROCEDURE: Trigger point injections of the bilateral cervical paraspinous musculature, bilateral trapezius, bilateral rhomboid distribution, bilateral thoracic and lumbar paraspinous musculature and bilateral gluteus musculature using sterile prep and drape with local anesthetic. Medication injected is a total of 40 mg Depo-Medrol plus total of 15 mL of 0.25% bupivacaine after negative aspiration at each injection site. CONDITION AT DISCHARGE: Stable. The patient tolerated procedure well, had no complications. [facility] MD DR: HOLDEN/vanessa JOB#: [id number] / [id number]
== END | disposition home or self-care (01) ==
LOC: PNCL 07:31
PROVIDERS: ATTEND Anesthesiology
DX: M79.1 Myalgia (principal); E78.00 Pure hypercholesterolemia, unspecified; I10 Essential (primary) hypertension; E11.9 Type 2 diabetes mellitus without complications; D64.9 Anemia, unspecified
CPT/HCPCS: 20553; J1030; J3490

== ENCOUNTER → 2017-01-01 | Outpatient (CLI) | payer MEDICARE ==
[~2017-01-01] MED LIST changes: -CINN500C PO; +CINN500C2 PO; -GUAI600T38 PO; +GUAI600T47 PO
== END | disposition home or self-care (01) ==
LOC: PNCL 07:35
PROVIDERS: ATTEND Anesthesiology
DX: M79.1 Myalgia (principal); E78.00 Pure hypercholesterolemia, unspecified; I10 Essential (primary) hypertension; E11.9 Type 2 diabetes mellitus without complications; D64.9 Anemia, unspecified; Z86.69 Personal history of other diseases of the nervous system and sense organs; Z86.39 Personal history of other endocrine, nutritional and metabolic disease
CPT/HCPCS: 20553; J1030; J3490

== ENCOUNTER → 2017-01-17 | Outpatient (CLI) | payer MEDICARE ==
--- NOTE | 2017-01-17 09:54 | PAIN ---
DATE OF SERVICE: 01/17/2017 PROGRESS NOTE FOR PAIN CLINIC DIAGNOSES: 1. Myofascial pain. 2. Low back pain. HISTORY OF PRESENT ILLNESS: The patient is a 76-year-old male who returns for followup status post trigger point injections, last seen on 01/01/2017. The patient had trigger point injection, at that time did very well with initially about 90% improvement. The patient reports he was playing golf, however, about 2 weeks ago and was swinging to the right side, had some significant pain in the low back on the right side and had some in the upper back as well. He has exacerbated this with golfing to the point where he is becoming very stiff, very painful. He is having to wear a back brace at all times, especially with sleeping. Lying down at night has been bothering him as well. No radiation in the lower extremities or other radiation, but significant pain in the right low back as well as flank and upper mid back on the right side, some on the left side, but more on the right. The patient reports it is an 8 on a scale of 10 at all times, reports no radiation of pain, but does awaken him at night. He only sleeps about 4 hours over the past week and a half or so after the golfing incident. The patient reports otherwise doing well. No new motor or sensory deficits, no new bowel or bladder incontinence or other complaints. PHYSICAL EXAMINATION: VITAL SIGNS: Today, the patient's blood pressure is 130/70, pulse 80, respirations 18, temperature 98.5 degrees Fahrenheit, height is 5 feet 10 inches, weighs 179 pounds. GENERAL: The patient is awake, alert, oriented, appropriate, very pleasant demeanor. HEENT: Head shows normocephalic, atraumatic. The patient wears eye glasses. Extraocular movements are intact and symmetrical. Oral cavity, mucous membranes are moist and pink. Dentition is intact. NECK: Shows anterior throat supple. Neck shows full rotational motion of cervical spine. CHEST: Shows breath sounds clear to auscultation bilaterally. HEART: Shows S1 and S2 clear. ABDOMEN: Soft, nontender, nondistended. BACK: Shows spine grossly in the midline. Normal appearing thoracic kyphosis and lumbar lordotic curvature. With palpation, it shows significant tenderness in the bilateral trapezius as well as in the right rhomboid, left rhomboid mildly with very firm rope-like musculature in both regions, very tender without specific radiation, but very firm rope-like musculature consistent with trigger point areas of muscles. This is true into the thoracic paraspinous musculature, again worse on the right than the left and into the lumbar paraspinous muscles, very firm rope-like musculature on the right compared to the left and into the right gluteus superiorly and laterally as well. No radiation with any of these trigger point areas, but very firm rope-like tender musculature is identified. EXTREMITIES: The patient's lower extremities showed deep tendon reflexes are 2+ in the patellar tendons. Motor exam is strong with 5/5 dorsiflexion and extension bilaterally. Options were discussed with the patient. The patient's old chart was reviewed as his current medication regimen updated. Current review of systems updated today as well. We will proceed with trigger point injections at the afore-mentioned musculatures. Risks were again discussed including, but not limited to bleeding, infection, possibility of intravascular injection sequelae, spread of local anesthetic and numbness, pneumothorax, side effects of steroid medication and poor results regarding pain control. The patient understands and wishes to proceed. The patient will return to clinic in approximately 2 weeks for followup or as necessary, would like to call for his next appointment. He was encouraged to increase his activity as tolerated, maintain stretching and strengthening exercises as he is doing currently as well. DIAGNOSES: Myofascial pain and low back pain. PROCEDURE: Trigger point injections of bilateral trapezius, rhomboid, thoracic paraspinous, lumbar paraspinous, and right gluteus musculature using local anesthetic under sterile prep and drape with medication injected a total of 40 mg Depo-Medrol plus total of 10 mL of 0.25% bupivacaine after negative aspiration at each level. CONDITION AT DISCHARGE: Stable. The patient tolerated procedure well, had no complications. [facility] MD DR: HOLDEN/vanessa JOB#: [id number] / [id number]
== END ==
LOC: PNCL 07:52
PROVIDERS: ATTEND Anesthesiology
DX: M54.5 Low back pain (principal); M79.1 Myalgia; E78.00 Pure hypercholesterolemia, unspecified; I10 Essential (primary) hypertension; E11.9 Type 2 diabetes mellitus without complications; D64.9 Anemia, unspecified; Z98.890 Other specified postprocedural states; Z98.49 Cataract extraction status, unspecified eye; Z85.828 Personal history of other malignant neoplasm of skin
CPT/HCPCS: 20553; J1030; J3490

== ENCOUNTER → 2017-05-04 | Outpatient (CLI) | payer MEDICARE ==
[2017-04-19 13:25] VITALS: BP 167/72
[~2017-05-04] MED LIST changes: +CRESTOR5 MG PO; +HYDR-971 PO
--- NOTE | 2017-05-04 19:54 | PAIN ---
DATE OF SERVICE: 05/04/2017 PROGRESS NOTE FOR PAIN CLINIC DIAGNOSIS: Myofascial pain with low back pain. HISTORY OF PRESENT ILLNESS: The patient is a 76-year-old male who returns for followup status post trigger point injections last seen on 01/17/2017. The patient did very well with near 90% improvement from the trigger point injections. The patient reports he was doing very well, was playing golf about a week ago and slipped on some wet sand, fell on his right side and rachell his entire back and hips with significant pain increasing from the neck to the upper shoulders, mid back, low back and into the left gluteus more than the right. The patient had x-rays for his ribs and there were no fractures. He has had significant pain since that time and much more tight spasm pain in the mid and upper back especially and slightly more around the left side in the low back. The patient reports no new motor or sensory deficits, no new bowel or bladder incontinence or other complaints, but still significant pain is noted. The patient rates his pain as a 9 on a scale of 10 at it is worst, 8 on average, 7 at its least and 7 today. The patient reports it is sharp, tight, shooting, can be on and off, worse with activity, standing, walking, changing positions, flexing and extending, even getting out of bed in the morning is quite painful for him with spasticity in the neck and shoulders and into the left gluteus. The patient reports it is tight, shooting and sharp, also some dull aching pain, but spastic in quality in the neck as well, more on the right side. The patient reports it is awakening him from sleep occasionally, but not every night, he can usually lie flat and still and he does not have difficulty sleeping. PHYSICAL EXAMINATION: VITAL SIGNS: The patient's blood pressure is 157/67, pulse 59, respirations are 20 and temperature is 98.1 degrees Fahrenheit. Height is 5 feet 10 inches and weighs 179 pounds. GENERAL: The patient is awake, alert, oriented, appropriate, very pleasant demeanor. HEENT: Head shows normocephalic and atraumatic. Extraocular movements are intact and symmetrical. Oral cavity, mucous membranes are moist and pink. Dentition is intact. NECK: Shows anterior throat supple without palpable lymphadenopathy noted. Swallow reflex is symmetrical. CHEST: Shows normal with inspection. Breath sounds are clear to auscultation bilaterally. HEART: Shows S1 and S2 clear. No murmurs are auscultated. ABDOMEN: Soft, nontender and nondistended. No palpable organomegaly is noted. MUSCULOSKELETAL: Back shows spine grossly in the midline. Normal appearing cervical lordotic curvature, thoracic kyphotic curvature and lumbar lordotic curvature. No previous bruises, lesions or rashes noted. With palpation shows significant tenderness with very firm rope-like musculature in the right cervical paraspinous musculature as well as the bilateral trapezius, bilateral rhomboids, thoracic and lumbar paraspinous musculature is very firm rope-like musculature throughout each level without specific radiation, but very firm and tender. Left gluteus shows most severe area of very firm rope-like musculature in the mid upper left gluteus musculature with radiation into the lower leg posteriorly to a moderate extent with palpation and very severe pain with the patient withdrawing from the examining hand. Options were discussed with the patient and the patient's old chart was reviewed as his current medication regimen updated. Current review of systems updated today as well. We will proceed with trigger point injections in the identified musculature. Risks were discussed including but not limited to bleeding, infection, possibility of intravascular injection sequelae, spread of local anesthetic and numbness, pneumothorax, side effects of steroid medication as well as poor results regarding pain control. The patient understands and wishes to proceed. The patient will return to the clinic in approximately 2 weeks for followup, was counseled on return appointment, activity level and side effects to be aware of. DIAGNOSIS: Myofascial pain. PROCEDURE: Trigger point injections of the bilateral trapezius, bilateral rhomboid musculature, bilateral thoracic paraspinous musculature, bilateral lumbar paraspinous musculature, left gluteus as well as right cervical paraspinous musculature using sterile prep and drape with local anesthetic. MEDICATION INJECTED: A total of 14 mL of 0.25% bupivacaine and 40 mg of Depo-Medrol. CONDITION AT DISCHARGE: Stable. The patient tolerated the procedure well and had no complications. [facility] MD DR: HOLDEN/vanessa JOB#: [id number] / [id number]
== END ==
LOC: PNCL 08:58
PROVIDERS: ATTEND Anesthesiology
DX: M79.1 Myalgia (principal); E78.00 Pure hypercholesterolemia, unspecified; I10 Essential (primary) hypertension; E11.9 Type 2 diabetes mellitus without complications; D64.9 Anemia, unspecified; Z98.890 Other specified postprocedural states; Z98.49 Cataract extraction status, unspecified eye; Z85.828 Personal history of other malignant neoplasm of skin
CPT/HCPCS: 20553; J1030; J3490

== ENCOUNTER → 2017-08-20 | Outpatient (CLI) | payer MEDICARE ==
[~2017-08-20] MED LIST changes: -ALPR0.25 PO; -ALPR0.5T6 PO; -ASPI-482 PO; -BACL10TA PO; +BUPIVACAINE MPF 0.25% 10 ML VIAL.; -BUPIVACAINE MPF 0.25% 10 ML VIAL. ONE; -CINN500C2 PO; -CRESTOR5 MG PO; -FENO160T PO; -FLUT16SP NS; -GLUC1TAB71 PO; -GUAI600T47 PO; -HYDR-971 PO; -LISI-338 PO; -LISI10TA2 PO; -LORA10TA68 PO; -LOSA50TA6 PO; -METF500T4 PO; -MULT-18 PO; -NIAC500T9 PO; -NITR0.4T SL; -OMEG1CAP6 PO; -OTHER; -SIMV40TA PO; -TAMS0.4C2 PO; -[UNRECOGNIZED DRUG - OTHER]; +methylPREDNISolone ACETATE 40 MG/ML VIAL.; -methylPREDNISolone ACETATE 40 MG/ML VIAL. ONE
== END ==
LOC: PNCL 07:36
DX: M79.1 Myalgia (principal); M54.5 Low back pain; E78.00 Pure hypercholesterolemia, unspecified; I12.9 Hypertensive chronic kidney disease with stage 1 through stage 4 chronic kidney disease, or unspecified chronic kidney disease; E11.22 Type 2 diabetes mellitus with diabetic chronic kidney disease; N18.9 Chronic kidney disease, unspecified; N40.0 Benign prostatic hyperplasia without lower urinary tract symptoms; Z86.2 Personal history of diseases of the blood and blood-forming organs and certain disorders involving the immune mechanism; Z85.828 Personal history of other malignant neoplasm of skin; Z98.890 Other specified postprocedural states; Z79.899 Other long term (current) drug therapy
CPT/HCPCS: 20553; J1030; J3490

== ENCOUNTER → 2017-11-05 | Outpatient (CLI) | payer MEDICARE | END | disposition home or self-care (01) | LOC: PNCL 08:08 | DX: M79.1 Myalgia (principal); M54.5 Low back pain; I10 Essential (primary) hypertension; E11.9 Type 2 diabetes mellitus without complications; E78.00 Pure hypercholesterolemia, unspecified; N40.0 Benign prostatic hyperplasia without lower urinary tract symptoms; D64.9 Anemia, unspecified; Z85.828 Personal history of other malignant neoplasm of skin; Z98.890 Other specified postprocedural states | CPT/HCPCS: 20553; J1030; J3490 ==

== ENCOUNTER → 2017-11-23 | Outpatient (CLI) | payer MEDICARE | END | disposition home or self-care (01) | LOC: PNCL 08:38 | DX: M79.1 Myalgia (principal); M54.5 Low back pain; Z98.890 Other specified postprocedural states; Z98.49 Cataract extraction status, unspecified eye; Z96.1 Presence of intraocular lens; E78.00 Pure hypercholesterolemia, unspecified; I10 Essential (primary) hypertension; N40.0 Benign prostatic hyperplasia without lower urinary tract symptoms; E11.9 Type 2 diabetes mellitus without complications; D64.9 Anemia, unspecified; Z85.828 Personal history of other malignant neoplasm of skin | CPT/HCPCS: 20553; J1030; J3490 ==

== ENCOUNTER → 2018-02-27 | Outpatient (CLI) | payer MEDICARE ==
[2017-04-19 13:25] VITALS: BP 167/72
[~2018-02-27] MED LIST changes: +ALPR0.25 PO; +ALPR0.5T6 PO; +ASPI-482 PO; +BACL10TA PO; -BUPIVACAINE MPF 0.25% 10 ML VIAL.; +BUPIVACAINE MPF 0.25% 10 ML VIAL. ONE; +CINN500C2 PO; +CRESTOR5 MG PO; +FENO160T PO; +FLUT16SP NS; +GLUC1TAB71 PO; +GUAI600T47 PO; +HYDR-971 PO; +LISI-338 PO; +LISI10TA2 PO; +LORA10TA68 PO; +LOSA50TA7 PO; +METF500T16 PO; +MULT-18 PO; +NIAC500T9 PO; +NITR0.4T SL; +OMEG1CAP6 PO; +OTHER; +SIMV40TA PO; +TAMS0.4C2 PO; +[UNRECOGNIZED DRUG - OTHER]; -methylPREDNISolone ACETATE 40 MG/ML VIAL.; +methylPREDNISolone ACETATE 40 MG/ML VIAL. ONE
--- NOTE | 2018-02-27 09:25 | PAIN ---
DATE OF SERVICE: 02/27/2018 DIAGNOSES: 1. Myofascial pain. 2. Low back pain. HISTORY OF PRESENT ILLNESS: The patient is a 77-year-old male who returns for followup status post trigger point injections with good results. The patient was last seen 11/23/2017. The patient did very well with about 90% improvement for about 12 weeks. The patient reports the pain has been returning now in his upper back, mid back, shoulders, base of his neck and low back, more on the left than the right. The patient reports it is stiff and tight, better with stretching and exercise, but he has been doing this consistently, as well as heat application, but still significant pain to the point where it is getting much more painful. The patient reports a stabbing, sharp, tight pain becoming more severe as a 9 on a scale of 10 at its worst, 8 on average, 6 at its least and is a 6 today. The patient reports no new motor or sensory deficits, no new bowel or bladder incontinence. The patient reports it does not awaken from sleep; however, worse with activity, walking and standing. He tried to play golf yesterday and had difficult time with the pain as well. PHYSICAL EXAMINATION: VITAL SIGNS: The patient's blood pressure is 142/75, pulse 63, respirations are 18, temperature is 97.0 degrees Fahrenheit, height is 5 feet 10 inches, and weight is 172 pounds. GENERAL: The patient is awake, alert, oriented, appropriate, very pleasant demeanor. HEENT: Head shows normocephalic, atraumatic. Extraocular muscles are intact and symmetrical. Oral cavity, mucous membranes are moist and pink. Dentition is intact. NECK: Shows anterior throat supple without palpable lymphadenopathy noted. Swallow reflex symmetrical. CHEST: Shows normal with inspection. Breath sounds clear to auscultation bilaterally. HEART: Shows S1, S2 clear. No murmurs auscultated. ABDOMEN: Soft, nontender, nondistended. No palpable organomegaly. No rebound or guarding demonstrated. BACK: Shows spine grossly in the midline, normal-appearing cervical lordotic curvature, thoracic kyphotic curvature, and lumbar lordotic curvature with palpation. The patient has significant tenderness, very firm rope-like musculature in the trapezius musculature bilaterally, slightly worse on the left, also present in the thoracic paraspinous musculature, rhomboid distribution, and the lumbar paraspinous muscles, again worse on the left side than the right, more tender without specific radiation, however. The patient shows good rotational motion of the lumbar spine, as well as cervical spine without significant difficulty with rotation, extension or flexion. The patient's lower extremities show deep tendon reflexes 1+ in the patellar and tendo-calcaneus tendons. Motor exam is strong with 5/5 dorsiflexion, extension, quadriceps, and hamstring flexion. Peripheral pulses are 1+, posterior tibial. No peripheral edema is noted. ASSESSMENT AND PLAN: Options were discussed with the patient. The patient's old chart was reviewed as his current medication regimen updated. Current review of systems updated today as well. We will proceed with trigger point injections of the bilateral trapezius musculature, bilateral thoracic and lumbar paraspinous musculature, as well as the bilateral gluteus musculature. Risks were again discussed including, but not limited to bleeding, infection, possibility of intravascular injection sequelae, spread of local anesthetic and numbness, pneumothorax, side effects of steroid medication and poor results regarding pain control. The patient understands and wished to proceed. The patient will return to clinic in approximately 2 weeks for followup. She was counseled on return appointment, activity level, and side effects to be aware of. DIAGNOSIS: Myofascial pain. PROCEDURE: Trigger point injections, bilateral trapezius, bilateral thoracic paraspinous musculature, bilateral lumbar paraspinous musculature, bilateral gluteus musculature under sterile prep and drape using local anesthetic. MEDICATIONS INJECTED: Total of 12 mL of 0.25% bupivacaine and 40 mg total of Depo-Medrol after negative aspiration at each injection site. CONDITION AT DISCHARGE: Stable. The patient tolerated the procedure well, had no complications. [facility] MD DR: HOLDEN/vanessa JOB#: [id number] / [id number]
== END | disposition home or self-care (01) ==
LOC: PNCL 07:34
PROVIDERS: ATTEND Anesthesiology
DX: M79.1 Myalgia (principal)
CPT/HCPCS: 20553; J1030; J3490

== ENCOUNTER → 2018-07-01 | Outpatient (CLI) | payer MEDICARE ==
[2017-04-19 13:25] VITALS: BP 167/72
[~2018-07-01] MED LIST changes: -BUPIVACAINE MPF 0.25% 10 ML VIAL. ONE; +HYDR-3164 PO; -HYDR-971 PO; +LOSA-73 PO; -LOSA50TA7 PO; +PIOG30TA41 PO; +SODI650T PO; +TRAM50TA PO; -methylPREDNISolone ACETATE 40 MG/ML VIAL. ONE
--- NOTE | 2018-07-01 18:37 | RAD ---
Carotid ultrasound, 07/01/2018: HISTORY: Dizziness, cerebrovascular disease Duplex evaluation of the carotid arteries and neck was performed including grayscale, color-flow and spectral Doppler analysis. There is mild intimal thickening in the common carotid arteries with moderate smooth plaquing at the right carotid bifurcation. The peak systolic velocity in the proximal right internal carotid artery is 156 cm/s with an end-diastolic velocity of 37 cm/s and an internal carotid to common carotid artery ratio of 2.1. These Doppler findings suggest narrowing in the 50-70 percent diameter range, probably closer to the 50 percent level. There is a lesser degree of smooth plaquing at the left carotid bifurcation. The peak systolic velocity in the left internal carotid artery is 83 cm per sec with an end-diastolic velocity of 26 cm/s yielding an internal carotid to common carotid artery ratio 1.3. These Doppler findings suggest narrowing in the 0-50 percent diameter range. Antegrade flow is present in both vertebral arteries in the neck. IMPRESSION: Mild to moderate narrowing at the carotid bifurcations, right greater than left, with underlying luminal narrowing of the proximal right internal carotid artery in the 50-70 percent diameter range and narrowing of the proximal left internal carotid artery in the 0-50 percent diameter range. Note: Stenosis calculations for CT, MRA and conventional angiography are based upon determination of the distal ICA diameter in accordance with the NASCET methodology. Stenosis calculations for Doppler studies are derived from validated velocity criteria which are known to correlate with NASCET methodology of determining stenosis. Electronically signed by: Chris Coy MD (07/01/2018 6:32 PM) [facility]
== END | disposition home or self-care (01) ==
LOC: US 14:53
PROVIDERS: ATTEND Nurse Practitioner Adult Health
DX: I67.9 Cerebrovascular disease, unspecified (principal); I65.23 Occlusion and stenosis of bilateral carotid arteries
CPT/HCPCS: 93880

== ENCOUNTER → 2018-07-08 | Outpatient (CLI) | payer MEDICARE ==
[2017-04-19 13:25] VITALS: BP 167/72
[~2018-07-08] MED LIST changes: +BUPIVACAINE MPF 0.25% 10 ML VIAL. ONE; -TRAM50TA PO; +methylPREDNISolone ACETATE 40 MG/ML VIAL. ONE
--- NOTE | 2018-07-08 18:22 | PAIN ---
DATE OF SERVICE: 07/08/2018 PROGRESS NOTE FOR PAIN CLINIC DIAGNOSES: 1. Myofascial pain. 2. Low back pain. HISTORY OF PRESENT ILLNESS: The patient is a 77-year-old male who returns for followup status post trigger point injections, last seen 02/27/2018. The patient did very well for several months after the trigger point injections. Now, the pain is returning in the base of the neck, left side of the neck greater than the right, upper shoulder on the left side, posterior upper back, mid back, low back, more on the right side in the low back and to the groin to some degree with some radiation when the pain is as worse in his back. The patient reports the pain is worse on a 9 on a scale 10, 7.5 on average, 5 at its least and is a 5 today. The patient reports it is aching, sharp, shooting, cramping, stabbing and burning at times. The patient also is having some sinus congestion and is seeing an ear, nose and throat specialist tomorrow about this. The patient reports no new motor or sensory deficits, but did have a new CT myelogram as he has had some tremors in his upper extremities. They are trying to find some reason for this and some of them are having radiculopathy quality to them and the cervical myelogram shows multiple spondylosis of cervical spine resulting in mild multilevel thecal sac compression without spinal cord compression. No high-grade stenoses. PHYSICAL EXAMINATION: VITAL SIGNS: Today, the patient's blood pressure is 143/78, pulse 70, respirations are 16, temperature 97.4 degrees Fahrenheit. Height is 5 feet 10 inches and weight is 180 pounds. GENERAL: The patient is awake, alert, oriented, appropriate, very pleasant demeanor. HEENT: Head is normocephalic and atraumatic. Extraocular movements are intact and symmetrical. Oral cavity: Mucous membranes moist and pink. Dentition is intact. NECK: Shows anterior throat supple without palpable lymphadenopathy noted. Swallow reflex symmetrical. CHEST: Shows normal with inspection. Breath sounds are clear to auscultation bilaterally. HEART: Shows S1, S2 clear. No murmurs auscultated. ABDOMEN: Soft, nontender, nondistended. No palpable organomegaly is noted. No rebound or guarding demonstrated. BACK: Shows spine grossly in the midline. Normal appearing thoracic kyphosis and cervical lordotic curve as well as lumbar lordotic curvature. The patient shows, with palpation, significant tenderness in the left greater than right inferior cervical paraspinous musculature, very firm rope-like musculature consistent with trigger point areas of musculature, but without specific radiation, but very firm, very tender into the trapezius as well as the cervical paraspinous musculature and into the rhomboid distribution on the left greater than the right. This is true in the thoracic paraspinous musculature bilaterally as well as the lumbar paraspinous musculature bilaterally and more in the right gluteus greater than left with very firm rope-like musculature consistent with trigger point areas of musculature once again as well. EXTREMITIES: The patient's upper extremities show deep tendon reflexes 2+ in the biceps and triceps tendons. Motor exam is strong with garment sorter strength rated 5/5 as is bicep and tricep flexion. Lower extremities show deep tendon reflexes 1+ in the patellar tendons. Motor exam is strong with dorsiflexion, extension, quadriceps and hamstring flexion equal. Peripheral pulses are 2+ radial, 1+ posterior tibial. No peripheral edema is noted throughout. Options were discussed with the patient. The patient's old chart was reviewed as his current medication regimen updated. Current review of systems updated today as well and we will proceed with trigger point injections of the aforementioned musculature. Risks were again discussed including, but not limited to, bleeding, infection, possibility of intravascular injection sequelae, spread of local anesthetic and numbness, pneumothorax, side effects of steroid medication and poor results regarding pain control. The patient understands and wished to proceed. The patient to return to clinic in approximately 4 weeks for followup, was counseled as to return appointment, activity level and side effects to be aware of. DIAGNOSIS: Myofascial pain with low back pain. PROCEDURE: Trigger point injections, bilateral cervical paraspinous musculature, bilateral trapezius musculature, bilateral rhomboid musculature, bilateral thoracic paraspinous musculature, bilateral lumbar paraspinous musculature and bilateral gluteus musculature under sterile prep and drape using local anesthetic. MEDICATION INJECTED: A total of 14 mL of 0.25% bupivacaine and a total of 40 mg Depo-Medrol after negative aspiration at each injection site. CONDITION AT DISCHARGE: Stable. The patient tolerated the procedure well, had no complications. [facility] MD DR: Lesley JOB#: [id number] / [id number]
== END | disposition home or self-care (01) ==
LOC: PNCL 13:59
PROVIDERS: ATTEND Anesthesiology
DX: M79.18 Myalgia, other site (principal); M54.5 Low back pain
CPT/HCPCS: 20553; J1030; J3490

== ENCOUNTER → 2018-08-08 | Outpatient (CLI) | payer MEDICARE ==
[2017-04-19 13:25] VITALS: BP 167/72
[~2018-08-08] MED LIST changes: +TRAM50TA PO
== END | disposition home or self-care (01) ==
LOC: PNCL 08:58
PROVIDERS: ATTEND Anesthesiology
DX: M79.18 Myalgia, other site (principal)
CPT/HCPCS: 20553; J1030; J3490

== ENCOUNTER → 2018-09-18 | Outpatient (CLI) | payer MEDICARE ==
[2017-04-19 13:25] VITALS: BP 167/72
[~2018-09-18] MED LIST changes: -BUPIVACAINE MPF 0.25% 10 ML VIAL. ONE; +IOHEXOL 180 MG/ML 10 ML VIAL. ONE
--- NOTE | 2018-09-18 23:51 | PAIN ---
DATE OF SERVICE: 09/18/2018 DIAGNOSES: 1. Myofascial pain. 2. Low back pain. 3. Cervical radiculopathy with cervical degenerative disk disease and cervical spondylosis. HISTORY OF PRESENT ILLNESS: The patient is a 78-year-old male who returns for followup status post trigger point injections on his last visit, did very well with these in the cervical paraspinous musculature, bilateral thoracic paraspinous and lumbar paraspinous musculature. The patient reports his main complaint now is the neck and left upper extremity pain as he had previously. The patient reports pain in the base of the neck, left shoulder, left posterior triceps into the forearm as well as into the hand at times. The patient reports it is also in the upper mid back and some in the low back, but this is much improved. The patient reports the pain in the neck and left arm is an 8 on a scale of 10 at its worst, 7 on average, 7 at its least and is a 7 today. The patient reports it is aching and dull, shooting, sharp and is burning and cramping in the base of the neck as well. The patient reports no new motor or sensory deficits, no new changes. No bowel or bladder incontinence, no loss of function of left upper extremity, but reports it feels much better with sitting or lying down and does not awaken him from sleep at night, worse with using the left upper extremity in repetitive motions or sitting upright for too longer period or driving can exacerbate the pain as well. The patient reports no new motor or sensory deficits, no new changes. PHYSICAL EXAMINATION: VITAL SIGNS: The patient's blood pressure is 160/74, pulse 59, respirations are 18, temperature is 98.4 degrees Fahrenheit, height is 5 feet 2 inches, weight is 180 pounds. GENERAL: The patient is awake, alert, oriented, appropriate, very pleasant demeanor. HEENT: Shows normocephalic, atraumatic. Extraocular movements are intact and symmetrical. Oral cavity: Mucous membranes moist and pink. Dentition is intact. NECK: Shows anterior throat supple without palpable lymphadenopathy noted. Swallow reflex is symmetrical. CHEST: Shows normal on inspection. Breath sounds are clear to auscultation bilaterally. HEART: Shows S1, S2 clear. No murmurs auscultated. ABDOMEN: Soft, nontender, nondistended. No palpable organomegaly is noted. No rebound or guarding demonstrated. BACK: Shows spine grossly in the midline. Normal appearing thoracic kyphosis, some minor flattening of lumbar lordotic curvature. Cervical paraspinous muscle shows symmetrical on inspection with a normal cervical lordotic curvature. With palpation shows some moderate tenderness diffusely bilaterally, but only diffusely without significant radiation. The patient has good rotational motion of cervical spine, both laterally as well as extension and flexion without significant pain reported. EXTREMITIES: The patient's upper extremities show deep tendon reflexes at 2+ in the triceps and biceps tendon. Motor exam is strong with operating room orderly strength rated at 5/5 as is bicep and tricep flexion bilaterally. Peripheral pulses are 2+ radial distribution. No peripheral edema is noted bilaterally. Options were discussed with the patient. The patient's old chart was reviewed as was his current medication regimen updated. Current review of systems is updated today as well. We will proceed with a cervical epidural steroid injection today, first in the series with fluoroscopic guidance. Risks were again discussed including, but not limited to bleeding, infection, possibility of epidural hematoma and subsequent neurological compromise, dural puncture, headaches, spinal cord and/or nerve damage, side effects of steroid medication and poor results regarding pain control. The patient understands and wished to proceed. The patient will return to the clinic in approximately 2 weeks for followup, was counseled on return appointment, activity level and side effects to be aware of. DIAGNOSES: Cervical radiculopathy with cervical degenerative disk disease and cervical spondylosis. PROCEDURE: Cervical epidural steroid injection, translaminar approach at C6-C7 level using C-arm fluoroscopic guidance under sterile prep and drape using local anesthetic. MEDICATION INJECTED: A total of 120 mg Depo-Medrol plus 5 mL of preservative-free normal saline and 2 mL of Isovue for contrast. CONDITION AT DISCHARGE: Stable. The patient tolerated the procedure well, had no complications. [facility] MD DR: HOLDEN/vanessa JOB#: [id number] / [id number]
== END | disposition home or self-care (01) ==
LOC: PNCL 10:28
PROVIDERS: ATTEND Anesthesiology
DX: M50.123 Cervical disc disorder at C6-C7 level with radiculopathy (principal); M47.22 Other spondylosis with radiculopathy, cervical region; M79.18 Myalgia, other site
CPT/HCPCS: 62321; J1030; Q9965

== ENCOUNTER → 2018-11-21 | Outpatient (CLI) | payer MEDICARE ==
[2017-04-19 13:25] VITALS: BP 167/72
[~2018-11-21] MED LIST changes: +BUPIVACAINE MPF 0.25% 10 ML VIAL. ONE; -IOHEXOL 180 MG/ML 10 ML VIAL. ONE
--- NOTE | 2018-11-22 07:09 | PAIN ---
DATE OF SERVICE: 11/21/2018 PROGRESS NOTE FOR PAIN CLINIC DIAGNOSES: 1. Myofascial pain. 2. Low back pain with lumbar degenerative disk disease. 3. Cervical radiculopathy with cervical degenerative disk disease and spondylosis. The patient is a 78-year-old male who returns for followup status post cervical epidural steroid injection x 1, which works very well near 100% improvement. His main complaint today is some stiffness in the base of the shoulders and the neck more on the left side, upper back, mid back and low back as he has had previously, was very firm, tightness and increasing pain, is described as radiating and constant, becoming more sharp and tight, especially in the upper shoulders, back and mid back and low back, worse on the left side in the low back. The patient reports it is a 10 on a scale of 10 at its worst over the past week, 7-8 on average and a 4 at its least and is a 7 today. The patient reports his neck is doing much better, though after the injection last time, but that he has spasticity and tightness in the neck, shoulders in the upper and especially the low back on the left is much worse. The patient reports no new motor or sensory deficits, no new bowel or bladder incontinence or other complaints. PHYSICAL EXAMINATION: VITAL SIGNS: The patient's blood pressure is 140/67, pulse 57, respirations are 18, temperature is 98.5 degrees Fahrenheit, height is 5 feet 10 inches, weight is 181 pounds. GENERAL: The patient is awake, alert, oriented, appropriate, very pleasant demeanor. HEENT: Shows normocephalic, atraumatic. Extraocular movements are intact and symmetrical. Oral cavity, mucous membranes are moist and pink. Dentition is intact. NECK: Shows anterior throat supple without palpable lymphadenopathy noted. Swallow reflex is symmetrical. CHEST: Shows normal on inspection. Breath sounds are clear to auscultation bilaterally. HEART: Shows S1, S2 clear. No murmurs auscultated. ABDOMEN: Soft, nontender, nondistended. No palpable organomegaly is noted. No rebound or guarding demonstrated. BACK: Shows spine grossly in the midline. Normal appearing thoracic kyphosis, cervical lordotic curvature and some minor flattening of lumbar lordotic curvature, easily palpable posterior left gluteus. Spinal cord stimulator generator is present without pain, but with good mobility. With palpation, cervical paraspinous muscle shows significant tenderness and very firm rope-like musculature in the left medial aspect of the paraspinous musculature on the left and slightly more on the right in the inferior aspect into the right trapezius as well as bilateral trapezius, very firm rope-like musculature consistent with trigger point areas. This is true into the rhomboid distribution thoracic paraspinous musculature, slightly worse on the left than the right, but without radiation. Also, in the lumbar distribution, very firm rope-like musculature, more on the left than the right in the middle, lower and lateral aspect of the lumbar paraspinous musculature, again on the left greater than the right, but without radiation. No tenderness over the spinous processes, sacrum or sacroiliac regions. The patient has good rotational motion in both the cervical spine as well as lumbar spine without significant pain reported. EXTREMITIES: The patient's upper extremities show deep tendon reflexes 2+ in the biceps and triceps tendons. Motor exam is strong with hand candy dipper strength 3-5/5 with biceps and triceps flexion. Peripheral pulses are 2+ in radial distribution. Lower extremities show deep tendon reflexes 1+ in the patellar and tendo-calcaneus tendons. Motor exam is strong with 5/5 dorsiflexion and extension. Options were discussed with the patient. The patient's old chart was reviewed as his current medication regimen updated. Current review of systems updated today as well. We will proceed with trigger point injections of the identified musculature. Risks were discussed including but not limited to bleeding, infection, possibility of intravascular injection sequelae, spread of local anesthetic and numbness, pneumothorax, side effects of steroid medication and poor results regarding pain control. The patient understands and wished to proceed. The patient will return to the clinic in approximately 2 weeks for followup. She was counseled on return appointment, activity level and side effects to be aware of. DIAGNOSIS: Myofascial pain. PROCEDURE: Trigger point injections, bilateral cervical paraspinous musculature and bilateral trapezius musculature, bilateral thoracic paraspinous musculature and bilateral lumbar paraspinous musculature under sterile prep and drape using local anesthetic. MEDICATION INJECTED: A total of 40 mg Depo-Medrol plus a total of 15 mL of 0.25% bupivacaine after negative aspiration at each injection site. CONDITION AT DISCHARGE: Stable. The patient tolerated the procedure well, had no complications. [facility] MD DR: HOLDEN/vanessa JOB#: [id number] / [id number]
== END ==
LOC: PNCL 08:40
PROVIDERS: ATTEND Anesthesiology
DX: M79.18 Myalgia, other site (principal); M54.5 Low back pain; M51.36 Other intervertebral disc degeneration, lumbar region
CPT/HCPCS: 20553; J1030; J3490

== ENCOUNTER → 2019-01-01 | Outpatient (CLI) | payer MEDICARE ==
[2017-04-19 13:25] VITALS: BP 167/72
[~2019-01-01] MED LIST changes: -BUPIVACAINE MPF 0.25% 10 ML VIAL. ONE; -methylPREDNISolone ACETATE 40 MG/ML VIAL. ONE
--- NOTE | 2019-01-01 09:13 | RAD ---
DOPPLER CAROTID BILAT Clinical Indication: Carotid artery stenosis.. Procedure: Pulsed wave and color-flow duplex imaging was utilized to evaluate the extracranial carotid arteries. Comparison: None. Findings: RIGHT SIDE: Mild atherosclerotic plaque on rhodes-scale images. Distal CCA peak systolic velocity 71 cm/sec. ICA peak systolic velocity 169 cm/sec. The right ICA/CCA ratio is 2.4. Flow within the right vertebral artery and right ECA is directed antegrade. Triphasic waveforms in the subclavian artery. LEFT SIDE: Mild atherosclerotic plaque on hrodes-scale images. Distal CCA peak systolic velocity 75 cm/sec. ICA peak systolic velocity 97 cm/sec. The left ICA/CCA ratio is 1.3. Flow within the left vertebral artery and left ECA is directed antegrade. Biphasic waveforms in the subclavian artery. Carotid legend: CCA = common carotid artery ICA = internal carotid artery ECA = external carotid artery IMPRESSION: 1. 50-69 percent stenosis in the right ICA. 2. Less than 50 percent stenosis in the left ICA. Electronically signed by: Raymond Love DO (01/01/2019 9:10 AM) [facility]
== END | disposition home or self-care (01) ==
LOC: US 07:58
PROVIDERS: ATTEND Nurse Practitioner Adult Health
DX: I65.23 Occlusion and stenosis of bilateral carotid arteries (principal)
CPT/HCPCS: 93880

== ENCOUNTER → 2019-01-06 | Outpatient (CLI) | payer MEDICARE ==
[2017-04-19 13:25] VITALS: BP 167/72
[~2019-01-06] MED LIST changes: +IOHEXOL 180 MG/ML 10 ML VIAL. ONE; +methylPREDNISolone ACETATE 40 MG/ML VIAL. ONE; +methylPREDNISolone ACETATE 80 MG/ML VIAL. ONE
--- NOTE | 2019-01-06 17:08 | PAIN ---
DATE OF SERVICE: 01/06/2019 PROGRESS NOTE FOR PAIN CLINIC DIAGNOSES: 1. Lumbar radiculopathy with lumbar degenerative disk disease and low back pain. 2. Cervical radiculopathy with cervical degenerative disk disease. 3. Myofascial pain. HISTORY OF PRESENT ILLNESS: The patient is a 78-year-old male who returns for followup status post-cervical epidural steroid injection. Also, trigger point injections. The patient did very well with the cervical injection, also had a good result of his Myofascial pain 70% improvement after the last trigger point injections. The patient reports main complaint now is low back pain radiating to bilateral posterior lateral thigh, lateral anterior thighs, and medial thighs. The patient reports that a lot of this has helped with the spinal cord stimulator but still has some significant pain in these regions. We discussed a lumbar epidural steroid injection on his last visit and he would like to proceed with that today. The patient reports the pain is 9 on a scale of 10 at its worst in the past week 7 on average, 6 at its least and is a 6 today. The patient reports it is aching, sharp, dull, tight, shooting in the low back itself and into the lower extremities, mostly into the anterior thighs, somewhat medially and laterally on the left and the right. The patient reports no new motor or sensory deficits, no new bowel or bladder incontinence or other complaints. PHYSICAL EXAMINATION: VITAL SIGNS: The patient's blood pressure 154/71, pulse 59, respirations are 18, temperature 98.2 degrees Fahrenheit. Height 5 feet 10 inches, weighs 178 pounds. GENERAL: The patient is awake, alert, oriented, appropriate, very pleasant demeanor. HEENT: Head is normocephalic, atraumatic. Extraocular movements are intact and symmetrical. Oral cavity: Mucous membranes moist and pink. Dentition is intact. NECK: Shows anterior throat supple without palpable lymphadenopathy noted. Swallow reflex is symmetrical. CHEST: Shows normal on inspection. Breath sounds clear to auscultation bilaterally. HEART: Shows S1, S2 clear. No murmurs auscultated. ABDOMEN: Soft, nontender, nondistended. No palpable organomegaly is noted. BACK: Shows spine grossly in the midline. There is some moderate tenderness in the lumbar paraspinous musculature with moderate pain in the upper, middle and lower distribution of the paraspinous muscles, but without specific radiation or specific symptomatic trigger points, but he does have some present. The patient has good rotational motion of lumbar spine, both laterally as well as extension and flexion without difficulty. EXTREMITIES: Lower extremities shows deep tendon reflexes 2+in the patellar, tendo-calcaneus tendons 1+. Motor exam is strong with 5/5 dorsiflexion, extension, quadriceps and hamstring flexion symmetrical. Peripheral pulses are 1+ posterior tibial. No peripheral edema is noted bilaterally. Options were discussed with the patient. The patient's old chart was reviewed as his current medication regimen updated. Current review of systems updated today as well and we will proceed with a lumbar epidural steroid injection today with fluoroscopic guidance. Risks were again discussed including, but not limited to bleeding, infection, possibility of epidural hematoma, subsequent neurologic compromise, dural puncture, headaches, spinal cord and/or nerve damage, side effects of steroid medication and poor results regarding pain control. The patient understands and wished to proceed. The patient will return to clinic in approximately 2 weeks for followup, was counseled at to return appointment, activity level and side effects to be aware of. DIAGNOSES: Lumbar radiculopathy with lumbar degenerative disk disease. PROCEDURE: Lumbar epidural steroid injection, translaminar approach L4-L5 level using C-arm fluoroscopic guidance under local anesthetic. MEDICATION INJECTED: A total of 120 mg Depo-Medrol plus 10 mL of preservative-free normal saline and 2 mL of contrast. CONDITION AT DISCHARGE: Stable. The patient tolerated the procedure well and had no complications. [facility] MD DR: HOLDEN/vanessa JOB#: [id number] / [id number]
== END ==
LOC: PNCL 09:09
PROVIDERS: ATTEND Anesthesiology
DX: M51.16 Intervertebral disc disorders with radiculopathy, lumbar region (principal); M79.18 Myalgia, other site; M50.10 Cervical disc disorder with radiculopathy, unspecified cervical region
CPT/HCPCS: 62323; J1030; J1040; Q9965

== ENCOUNTER → 2019-02-25 | Outpatient (CLI) | payer MEDICARE ==
[2017-04-19 13:25] VITALS: BP 167/72
[~2019-02-25] MED LIST changes: +BUPIVACAINE MPF 0.25% 10 ML VIAL. ONE; -NITR0.4T SL; +NITR0.4T24 SL; -methylPREDNISolone ACETATE 40 MG/ML VIAL. ONE
--- NOTE | 2019-02-25 10:04 | PAIN ---
DATE OF SERVICE: 02/25/2019 PROGRESS NOTE FOR PAIN CLINIC DIAGNOSES: 1. Myofascial pain. 2. Lumbar low back pain with degenerative disk disease. 3. Cervical radiculopathy with cervical degenerative disk disease. 4. Left biceps tendinitis. HISTORY OF PRESENT ILLNESS: The patient is a 78-year-old male, who returns for followup status post trigger point injection as well as lumbar epidural steroid injection with moderate decrease in pain. The patient reports his chief complaint today is his left shoulder. He has seen his orthopedic surgeon, who is recommending a left shoulder biceps tendon injection. He has some increased activities. He is playing golf with some increased pain in the left shoulder with activity, swinging. The patient reports significant pain in the anterior aspect of the upper shoulder and the anterior aspect of the upper arm on the left side. The patient reports it is worse with weightbearing, worse with reaching over his head, reaching forward or reaching outward and any weightbearing as well as driving car with his left hand. The patient reports no new motor or sensory deficits, no new bowel or bladder incontinence or other complaints. PHYSICAL EXAMINATION: VITAL SIGNS: The patient's blood pressure 137/66, pulse 60, respirations 18, temperature 98.3 degrees Fahrenheit. Height is 5 feet 10 inches, weight is 178 pounds. GENERAL: The patient is awake, alert, oriented, appropriate, very pleasant demeanor. HEENT: Head shows normocephalic, atraumatic. Extraocular movements are intact and symmetrical. Oral cavity, mucous membranes are moist and pink. NECK: Shows anterior throat supple without palpable lymphadenopathy noted. Swallow reflex symmetrical. CHEST: Shows normal on inspection. Breath sounds are clear bilaterally. HEART: Shows S1, S2 clear. No murmurs auscultated. ABDOMEN: Soft, nontender, nondistended. BACK: Shows spine grossly in the midline. EXTREMITIES: The patient's upper extremities show deep tendon reflexes are 2+ in the biceps and triceps tendons, internal review and audit compliance strength is 5/5 with biceps and triceps flexion as well bilaterally with some moderate tenderness with left biceps flexion only. On the left side, with palpation, there is some significant tenderness to palpation in the superior aspect of the biceps tendon at the anterior aspect of the shoulder. Right side is nontender with full rotational motion. Peripheral pulses are 2+, radial distribution. No peripheral edema is noted. Options were discussed with the patient. The patient's old chart was reviewed as his current medication regimen updated. Current review of systems updated today as well. We will proceed with a left biceps tendon injection today with fluoroscopic guidance. Risks were discussed including, but not limited to bleeding, infection, possibility of intravascular injection sequelae, spread of local anesthetic and numbness, side effects of steroid medication and poor results regarding pain control. The patient understands and wishes to proceed. The patient will return to clinic in approximately 2 weeks for followup. He was counseled on return appointment, activity level and side effects to be aware of. DIAGNOSIS: Left biceps tendinitis. PROCEDURE: Left biceps tendon injection under C-arm fluoroscopic guidance with sterile prep and drape using local anesthetic. MEDICATION INJECTED: A total of 3 mL of 0.25% bupivacaine and 80 mg Depo-Medrol with 1.5 mL of contrast. CONDITION AT DISCHARGE: Stable. The patient tolerated procedure well, had no complications. C[facility] MD DR: HOLDEN/vanessa JOB#: [id number] / [id number]
== END ==
LOC: PNCL 07:32
PROVIDERS: ATTEND Anesthesiology
DX: M75.22 Bicipital tendinitis, left shoulder (principal); M51.36 Other intervertebral disc degeneration, lumbar region; M50.10 Cervical disc disorder with radiculopathy, unspecified cervical region; M51.16 Intervertebral disc disorders with radiculopathy, lumbar region
CPT/HCPCS: 20551; 77002; J1040; J3490; Q9965; 20605

== ENCOUNTER → 2019-03-26 | Outpatient (CLI) | payer MEDICARE ==
[2017-04-19 13:25] VITALS: BP 167/72
[~2019-03-26] MED LIST changes: -BUPIVACAINE MPF 0.25% 10 ML VIAL. ONE; +LISI2.5T PO; +methylPREDNISolone ACETATE 40 MG/ML VIAL. ONE
--- NOTE | 2019-03-26 08:38 | PAIN ---
DATE OF SERVICE: 03/26/2019 PROGRESS NOTE FOR PAIN CLINIC DIAGNOSES: 1. Myofascial pain. 2. Low back pain with degenerative disk disease. 3. Cervical radiculopathy with cervical degenerative disk disease. HISTORY OF PRESENT ILLNESS: The patient is a 78-year-old male who returns for followup status post trigger point injections doing much better with his left shoulder. He had trigger points in the left biceps tendon. He is feeling much better with about 70% improvement. The patient reported chief complaint as neck and upper extremity pain bilaterally in the shoulders mainly. The patient has done well with cervical epidural steroid injections and is requesting that today. The patient reports pain radiating to bilateral shoulders, base of the neck, worse at night, worse with lying on his right arm. The patient reports it is sharp and dull and alteration in the upper mid back as well, severe in the neck and shoulders. The patient rates his pain as 9 on a scale of 10 at its worst over the past week, 7 on average, 6 at its least and is a 7 today. The patient reports no new motor or sensory deficits. Sleeping better at night after the injection into his left biceps tendon, but still having some significant difficulty with raising his arms over his head with pain in the base of the neck and into the shoulders bilaterally. PHYSICAL EXAMINATION: VITAL SIGNS: The patient's blood pressure is 141/68, pulse 61, respirations 16, temperature 97.6 degrees Fahrenheit, height is 5 feet 10 inches and weight is 177 pounds. GENERAL: The patient is awake, alert, oriented, appropriate, very pleasant demeanor. HEENT: Shows normocephalic, atraumatic. Extraocular movements are intact and symmetrical. Oral cavity: Mucous membranes moist and pink. Dentition is intact. NECK: Shows anterior throat supple without palpable lymphadenopathy noted. Swallow reflex symmetrical. CHEST: Shows normal on inspection. Breath sounds are clear to auscultation bilaterally. HEART: Shows S1, S2 clear. No murmurs auscultated. ABDOMEN: Soft, nontender, nondistended. No palpable organomegaly is noted. No rebound or guarding demonstrated. BACK: Shows spine grossly in the midline, normal-appearing cervical lordotic curvature, thoracic kyphotic curvature, some minor flattening of lumbar lordotic curvature. Cervical paraspinous muscle shows symmetrical on inspection, with palpation shows some moderate tenderness diffusely in the middle and lower distribution of paraspinous muscles bilaterally, but only diffusely and into the superior medial trapezius, more on the right than the left, which is firm, but without specific trigger points. The patient has good rotational motion of cervical spine, both laterally greater than 45 degrees closer to 90 degrees, full extension, full forward flexion performed without difficulty or pain reported. EXTREMITIES: The patient's upper extremities show deep tendon reflexes 2+ in the biceps and triceps tendons. 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 Peripheral pulses are 2+ radial distribution. No peripheral edema is noted bilaterally. Options were discussed with the patient. The patient's old chart was reviewed as his current medication regimen updated. Current review of systems updated today as well. We will proceed with a cervical epidural steroid injection today with fluoroscopic guidance. Risks were again discussed including, but not limited to bleeding, infection, possibility of epidural hematoma, subsequent neurological compromise, dural puncture, headaches, spinal cord and/or nerve damage, side effects of steroid medication and poor results regarding pain control. The patient understands and wished to proceed. The patient will return to clinic in approximately 2 weeks for followup. He was counseled on return appointment, activity level and side effects to be aware of. DIAGNOSIS: Cervical radiculopathy with cervical degenerative disk disease. PROCEDURE: Cervical epidural steroid injection, translaminar approach C6-C7 level using C-arm fluoroscopic guidance under sterile prep and drape using local anesthetic. MEDICATION INJECTED: A total of 120 mg Depo-Medrol plus 5 mL of preservative-free normal saline and 2 mL of contrast. CONDITION AT DISCHARGE: Stable. The patient tolerated the procedure well, had no complications. [facility] MD DR: HOLDEN/vanessa JOB#: [id number] / [id number]
== END ==
LOC: PNCL 07:35
PROVIDERS: ATTEND Anesthesiology
DX: M50.123 Cervical disc disorder at C6-C7 level with radiculopathy (principal); M79.18 Myalgia, other site; M51.36 Other intervertebral disc degeneration, lumbar region
CPT/HCPCS: 62321; J1030; J1040; Q9965

== ENCOUNTER → 2019-07-02 | Outpatient (CLI) | payer MEDICARE ==
[2019-06-04 16:03] VITALS: BP 152/70
[~2019-07-02] MED LIST changes: +BUPIVACAINE MPF 0.25% 10 ML VIAL. ONE; -IOHEXOL 180 MG/ML 10 ML VIAL. ONE; -methylPREDNISolone ACETATE 80 MG/ML VIAL. ONE
--- NOTE | 2019-07-03 04:59 | PAIN ---
DATE OF SERVICE: 07/02/2019 PROGRESS NOTE FOR PAIN CLINIC DIAGNOSES: 1. Myofascial pain. 2. Low back pain with lumbar degenerative disk disease. 3. Cervical radiculopathy with cervical degenerative disk disease. 4. Left shoulder pain. HISTORY OF PRESENT ILLNESS: The patient is a 78-year-old male who returns for followup status post cervical epidural steroid injections as well as myofascial pain and trigger point injections. The patient reports he has done quite well with these. He was doing quite well until about a month ago, he slipped and fell on some ice at home when he was trying to help his who did also fall on the ice. He fell himself, hit the back of his head, had to go to the Emergency Room, get stitches for his scalp, also had significant pain in the neck, shoulders, upper back, left shoulder, midback and low back, which exacerbated all the painful. The patient reports before that he was doing fairly well and was getting around with much greater ease and comfort, was traveling with better ease, doing household activities with better ability and comfort as well. The patient reports he is still better with lying down or sleeping, worse with walking, standing, changing positions, base of the neck, shoulders, upper back, mid back, low back bilaterally as well as the left shoulder. The patient reports his pain is 8 on a scale of 10 at all times, worst, least and average and is an 8 today. The patient reports it is sharp and radiating down the left leg as well as into the arms and upper extremities, especially after the fall. The patient reports no new motor or sensory deficits, no new changes. PHYSICAL EXAMINATION: VITAL SIGNS: The patient's blood pressure 143/62, pulse 67, respirations 18, temperature 98.2 degrees Fahrenheit, height is 5 feet 10 inches, weight is 183 pounds. GENERAL: The patient is awake, alert, oriented, appropriate, very pleasant demeanor. HEENT: Head shows normocephalic, atraumatic. Extraocular movements are intact and symmetrical. Oral cavity shows mucous membranes moist and pink. Dentition is intact. NECK: Shows anterior throat supple without palpable lymphadenopathy noted. Swallow reflex symmetrical. CHEST: Shows normal on inspection. Breath sounds clear bilaterally. HEART: Shows S1, S2 clear. No murmurs auscultated. ABDOMEN: Obese, soft, nontender, nondistended. BACK: Shows spine grossly in the midline, normal-appearing cervical lordotic curvature, thoracic kyphotic curvature, mild flattening of lumbar lordotic curvature. Cervical paraspinous muscle shows symmetrical with the patient having very firm rope-like musculature and then bilateral middle and upper as well as a lower cervical paraspinous musculature. This is true into the trapezius musculature is consistent with trigger point areas of muscle bilaterally without specific radiation. This is also palpable easily more on the right side than the left into the rhomboid musculature as well as the thoracic paraspinous musculature and the lumbar paraspinous musculature, which is symmetrical on inspection, with very firm rope-like musculature throughout the upper, middle and lower distribution of paraspinous muscles, again slightly worse on the right than the left, but present bilaterally. EXTREMITIES: The patient's lower extremities show deep tendon reflexes at 1+ in the patellar and tendo-calcaneus tendons. Motor exam is strong with 5/5 dorsiflexion, extension, quadriceps and hamstring flexion. Upper extremities show deep tendon reflexes 2+ in the biceps and triceps tendons. 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 Options were discussed with the patient. The patient's old chart was reviewed as his current medication regimen updated. Current review of systems updated today as well. We will proceed with trigger point injections of the identified musculature. Risks were again discussed including, but not limited to bleeding, infection, possibility of intravascular injection sequelae, spread of local anesthetic and numbness, pneumothorax, side effects of steroid medication and poor results regarding pain control. The patient understands and wished to proceed. The patient will return to the clinic in approximately 2 weeks for followup. He was counseled on return appointment, activity level and side effects to be aware of. DIAGNOSIS: Myofascial pain. PROCEDURE: Trigger point injections, bilateral cervical paraspinous musculature, bilateral trapezius musculature, bilateral thoracic paraspinous musculature and bilateral lumbar paraspinous musculature under sterile prep and drape using local anesthetic. MEDICATION INJECTED: A total of 40 mg Depo-Medrol plus 14 mL of 0.25% bupivacaine after negative aspiration at each injection site. CONDITION AT DISCHARGE: Stable. The patient tolerated the procedure well, had no complications. [facility] MD DR: Lesley JOB#: [id number] / [id number]
== END ==
LOC: PNCL 13:53
PROVIDERS: ATTEND Anesthesiology
DX: M79.18 Myalgia, other site (principal); M50.10 Cervical disc disorder with radiculopathy, unspecified cervical region
CPT/HCPCS: 20553; J1030; J3490

== ENCOUNTER → 2019-08-07 | Outpatient (CLI) | payer MEDICARE ==
[2019-06-04 16:03] VITALS: BP 152/70
[~2019-08-07] MED LIST changes: -BUPIVACAINE MPF 0.25% 10 ML VIAL. ONE; +IOHEXOL 180 MG/ML 10 ML VIAL. ONE; +methylPREDNISolone ACETATE 80 MG/ML VIAL. ONE
--- NOTE | 2019-08-07 12:58 | PAIN ---
DATE OF SERVICE: 08/07/2019 PROGRESS NOTE FOR PAIN CLINIC DIAGNOSES: 1. Myofascial pain. 2. Low back pain with lumbar radiculopathy, lumbar degenerative disk disease. 3. Cervical radiculopathy with cervical degenerative disk disease. 4. Left shoulder joint pain. HISTORY OF PRESENT ILLNESS: The patient is a 78-year-old male who returns for followup status post trigger point injections, most recently 07/02/2019. The patient did very well with these, reports his back is doing better, but his neck is most improved, still significant pain in the back of the neck and shoulders, upper extremities, mostly on the left side, but lately has been much more painful with pain radiating down the left leg in the low back. The patient reports it is into the left leg with walking, standing, changing positions in the posterior gluteus, posterolateral thigh, lateral anterior thigh and posterior calf. The patient reports it is sharp and radiating down the left leg, on and off in intensity, but worse with walking, standing, changing positions, better with sitting or lying down, but it has been awakening him from sleep about every 7 hours lately. The patient reports initially he was doing better after trigger point injections, was doing household activities, walking greater distances, but the pain is returning in the low back and into the lower extremity, now it is radiating into the leg, which is fairly new. The patient reports it is a 9 on a scale of 10 at its worst over the past week, anywhere from 7-9 on average and 6 at its least and is an 8 today. The patient reports no new motor or sensory deficits, no new bowel or bladder incontinence. PHYSICAL EXAMINATION: VITAL SIGNS: The patient's blood pressure is 138/69, pulse 59, respirations 16, temperature 97.7 degrees Fahrenheit, weight is 183 pounds. GENERAL: The patient is awake, alert, oriented, appropriate, very pleasant demeanor. HEENT: Head shows normocephalic, atraumatic. Extraocular movements are intact and symmetrical. Oral cavity: Mucous membranes moist and pink. Dentition is intact. NECK: Shows anterior throat supple without palpable lymphadenopathy noted. Swallow reflex symmetrical. CHEST: Shows normal on inspection. Breath sounds are clear bilaterally. HEART: Shows S1, S2 clear. No murmurs auscultated. ABDOMEN: Soft, nontender, nondistended. No palpable organomegaly is noted. No rebound or guarding demonstrated. BACK: Shows spine grossly in the midline. Cervical lordotic curvature slightly flattened as kyphotic curvature and lumbar lordotic curvature. Cervical paraspinous muscle shows symmetrical on inspection, with palpation shows some moderate tenderness diffusely bilaterally in the inferior cervical paraspinous musculature as well as the superior medial trapezius, slightly more on the left than the right, but present bilaterally. The patient shows full rotational motion of cervical spine, both laterally as well as extension and flexion without difficulty. The patient's lumbar spine shows some flattening again of lordotic curvature with palpation shows some moderate tenderness, although symmetrical, but without significant radiation in the low lumbar distribution and mid lumbar distribution. EXTREMITIES: Lower extremities show deep tendon reflexes at 1+ in the patellar and tendo calcaneus tendons. Motor exam is approximately 4 on a scale of 5, equal and symmetrical dorsiflexion, extension, quadriceps and hamstring flexion. Peripheral pulses are 1+ posterior tibia. No peripheral edema is noted bilaterally. Options were discussed with the patient. The patient's old chart was reviewed. His current medication regimen updated. Current review of systems updated today as well. We will proceed with a lumbar epidural steroid injection today with fluoroscopic guidance. Risks were again discussed including, but not limited to bleeding, infection, possibility of epidural hematoma, subsequent neurologic compromise, dural puncture, headaches, spinal cord and/or nerve damage, side effects of steroid medication and poor results regarding pain control. The patient understands and wished to proceed. The patient will return to clinic in approximately 2 weeks for followup. He was counseled on return appointment, activity level and side effects to be aware of. DIAGNOSIS: Lumbar radiculopathy with lumbar degenerative disk disease. PROCEDURE: Lumbar epidural steroid injection, translaminar approach at L4-L5 level using C-arm fluoroscopic guidance under sterile prep and drape using local anesthetic. MEDICATION INJECTED: A total of 120 mg Depo-Medrol plus 10 mL of preservative-free normal saline and 2 mL of contrast. CONDITION AT DISCHARGE: Stable. The patient tolerated the procedure well, had no complications. [facility] MD DR: HOLDEN/vanessa JOB#: [id number] / [id number]
== END ==
LOC: PNCL 08:29
PROVIDERS: ATTEND Anesthesiology
DX: M51.16 Intervertebral disc disorders with radiculopathy, lumbar region (principal); M10.9 Gout, unspecified; M79.18 Myalgia, other site
CPT/HCPCS: 62323; J1030; J1040; Q9965

== ENCOUNTER → 2019-08-29 | Outpatient (CLI) | payer MEDICARE ==
[2019-06-04 16:03] VITALS: BP 152/70
[~2019-08-29] MED LIST changes: -IOHEXOL 180 MG/ML 10 ML VIAL. ONE; +IOHEXOL 240 MG/ML 50ML VIAL. ONE
--- NOTE | 2019-08-29 12:26 | PAIN ---
DATE OF SERVICE: 08/29/2019 PROGRESS NOTE FOR PAIN CLINIC DIAGNOSES: 1. Myofascial pain. 2. Low back pain with lumbar radiculopathy with lumbar degenerative disk disease. 3. Cervical radiculopathy with cervical degenerative disk disease. HISTORY OF PRESENT ILLNESS: The patient is a 79-year-old male who returns for followup status post lumbar epidural steroid injection x 1. The patient reports about 80% improvement with the back and the left hip doing much better. The patient reports no new motor or sensory deficits. His chief complaint today is the base of neck and shoulder pain radiating to upper extremities, slightly more on the left than the right, but present bilaterally. The patient reports it is an 8 on a scale of 10 at its worst in the past week, 7 on average, 5 at its least and is a 5 today. The patient reports it is aching, sharp, shooting, on and off in intensity, base of neck and shoulders, upper extremities, again more on the left side than the right, but present bilaterally. The patient reports occasional tingling and numbness in the hands, mostly in the shoulders and arms, not been losing strength, not been dropping any items. The patient has some difficulty with rotational motion of the hip with some significant tenderness with right and left lateral rotation as well as extension and flexion. The patient reports it generally does not awaken him from sleep at night, worse with activity, driving, looking over shoulder, using his upper extremities in repetitive motions or any heavier weightbearing greater than about 10 pounds. PHYSICAL EXAMINATION: VITAL SIGNS: The patient's blood pressure 144/68, pulse 60, respirations 16, temperature 97.9 degrees Fahrenheit, weight is 180 pounds. GENERAL: The patient is awake, alert, oriented, appropriate, very pleasant demeanor. HEENT: Shows normocephalic, atraumatic. Extraocular movements are intact and symmetrical. Oral cavity: Mucous membranes moist and pink. Dentition is intact. NECK: Shows anterior throat supple without palpable lymphadenopathy noted. Swallow reflex symmetrical. CHEST: Shows normal on inspection. Breath sounds are clear bilaterally. HEART: Shows S1, S2 clear. No murmurs auscultated. ABDOMEN: Soft, nontender, nondistended. No palpable organomegaly is noted. No rebound or guarding demonstrated. BACK: Shows spine grossly in the midline, normal-appearing cervical lordotic curvature and thoracic kyphotic curvature, some slight flattening of lumbar lordotic curvature. Cervical paraspinous muscle shows symmetrical on inspection, with palpation shows some moderate tenderness diffusely in the middle and lower distribution of paraspinous muscles bilaterally into the superior medial trapezius as well, slightly more tender on the left than the right, but without significant atrophy, hypertrophy and without any trigger points or radiation of pain. The patient's rotational motion of the cervical spine shows good rotation with some moderate tenderness with left greater than right rotation, pain with extension and minor with forward flexion, but without radiation. EXTREMITIES: The patient's upper extremities show deep tendon reflexes 2+ in the biceps and triceps tendons. Motor exam is strong with 5/5 chief port director strength, bicep and tricep flexion. Peripheral pulses are 2+ radial distribution. No peripheral edema is noted. Options were discussed with the patient. The patient's old chart was reviewed as his current medication regimen updated. Current review of systems updated today as well. We will proceed with a cervical epidural steroid injection today with fluoroscopic guidance. Risks were discussed including but not limited to bleeding, infection, possibility of epidural hematoma, subsequent neurological compromise, dural puncture, headaches, spinal cord and/or nerve damage, side effects of steroid medication and poor results regarding pain control. The patient understands and wished to proceed. The patient will return to clinic in approximately 2 weeks for followup. He was counseled on return appointment, activity level and side effects to be aware of. DIAGNOSES: Cervical radiculopathy with cervical degenerative disk disease. PROCEDURE: Cervical epidural steroid injection, translaminar approach at C6-C7 level using C-arm fluoroscopic guidance under sterile prep and drape using local anesthetic. MEDICATION INJECTED: A total of 120 mg Depo-Medrol plus 5 mL of preservative-free normal saline and 2 mL of contrast. CONDITION AT DISCHARGE: Stable. The patient tolerated the procedure well, had no complications. [facility] MD DR: HOLDEN/vanessa JOB#: [id number] / [id number]
== END ==
LOC: PNCL 08:01
PROVIDERS: ATTEND Anesthesiology
DX: M50.123 Cervical disc disorder at C6-C7 level with radiculopathy (principal); M79.18 Myalgia, other site; M51.16 Intervertebral disc disorders with radiculopathy, lumbar region
CPT/HCPCS: 62321; J1030; J1040; Q9966

== ENCOUNTER → 2019-10-23 | Outpatient (CLI) | payer MEDICARE ==
[2019-06-04 16:03] VITALS: BP 152/70
[~2019-10-23] MED LIST changes: +IOHEXOL 180 MG/ML 10 ML VIAL. ONE; -IOHEXOL 240 MG/ML 50ML VIAL. ONE
--- NOTE | 2019-10-23 11:32 | PAIN ---
DATE OF SERVICE: 10/23/2019 PROGRESS NOTE FOR PAIN CLINIC DIAGNOSES: 1. Myofascial pain. 2. Low back pain with lumbar radiculopathy with lumbar degenerative disk disease. 3. Cervical radiculopathy with cervical degenerative disk disease. 4. Left shoulder joint pain. HISTORY OF PRESENT ILLNESS: The patient is a 79-year-old male who returns for followup status post lumbar epidural steroid injection x 1 and cervical epidural steroid injection x 1, last seen 08/29/2019. The patient had about 80% improved for about 2 months following the injection. The patient reports the pain has been returning now in the base of the neck and shoulders causing some numbness in both the upper extremities, but only mildly. The patient reports it is better with sleeping, lying down, does not awaken him from sleep, worse with activity, reaching over his head with his arms, repetitive motions or weightbearing with the upper extremities. The patient reports it is a 9 on a scale of 10 at its worst over the past week, 6 on average, 5 at its least and is a 6 today. The patient reports it is sharp and shooting pain in the upper extremities, base of neck and shoulder, some in the upper mid back as well as low back, becoming more severe in the arms. The patient reports no new motor or sensory deficits, no new bowel or bladder incontinence. PHYSICAL EXAMINATION: VITAL SIGNS: The patient's blood pressure 141/67, pulse 68, respirations 18, temperature 97.9 degrees Fahrenheit, height is 5 feet 10 inches, weight is 182 pounds. GENERAL: The patient is awake, alert, oriented, appropriate, very pleasant demeanor. HEENT: Head shows normocephalic, atraumatic. Extraocular movements are intact and symmetrical. Oral cavity: Mucous membranes moist and pink. Dentition is intact. NECK: Shows anterior throat supple without palpable lymphadenopathy noted. Swallow reflex symmetrical. CHEST: Shows normal on inspection. Breath sounds are clear bilaterally. HEART: Shows S1, S2 clear. No murmurs auscultated. ABDOMEN: Soft, nontender, nondistended. BACK: Shows spine grossly in the midline, normal-appearing cervical lordotic curvature. Some slight increase in thoracic kyphosis and flattening of lumbar lordotic curvature. There is some muscular pain throughout the upper, middle and lower distribution of paraspinous muscles in the cervical distribution as well as in the middle and upper trapezius. Thoracic paraspinous musculature as well as lumbar paraspinous muscle has some moderate tenderness with trigger point regions in the bilateral lumbar paraspinous musculature, but without radiation. EXTREMITIES: The patient's upper extremities show deep tendon reflexes at 2+ in the biceps and triceps tendons. 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 Peripheral pulses are 2+ bilaterally though lower extremities show deep tendon reflexes 1+ in the patellar and tendo calcaneus tendons. Motor exam is approximately 4 on a scale of 5, but equal, symmetrical with dorsiflexion and extension bilaterally. Options were discussed with the patient. The patient's old chart was reviewed as his current medication regimen updated. Current review of systems updated today as well. We will proceed with a cervical epidural steroid injection today with fluoroscopic guidance. Risks were discussed including but not limited to bleeding, infection, possibility of epidural hematoma, subsequent neurological compromise, dural puncture, headaches, spinal cord and/or nerve damage, side effects of steroid medication and poor results regarding pain control. The patient understands and wished to proceed. The patient will return to clinic in approximately 2 weeks for followup, was counseled on return appointment, activity level and side effects to be aware of. DIAGNOSIS: Cervical radiculopathy with cervical degenerative disk disease. PROCEDURE: Cervical epidural steroid injection, translaminar approach C6-C7 level using C-arm fluoroscopic guidance under sterile prep and drape using local anesthetic. MEDICATION INJECTED: A total of 120 mg Depo-Medrol plus 5 mL of preservative-free normal saline and 2 mL of contrast. CONDITION AT DISCHARGE: Stable. The patient tolerated the procedure well, had no complications. [facility] MD DR: HOLDEN/vanessa JOB#: [id number] / [id number]
== END | disposition home or self-care (01) ==
LOC: PNCL 10:15
PROVIDERS: ATTEND Anesthesiology
DX: M50.123 Cervical disc disorder at C6-C7 level with radiculopathy (principal); M79.18 Myalgia, other site; M25.512 Pain in left shoulder; Z98.890 Other specified postprocedural states
CPT/HCPCS: 62321; J1030; J1040; Q9965

== ENCOUNTER → 2019-11-28 | Outpatient (CLI) | payer MEDICARE ==
[2019-06-04 16:03] VITALS: BP 152/70
[~2019-11-28] MED LIST changes: +BUPIVACAINE MPF 0.25% 10 ML VIAL. ONE; -IOHEXOL 180 MG/ML 10 ML VIAL. ONE; -methylPREDNISolone ACETATE 80 MG/ML VIAL. ONE
--- NOTE | 2019-11-28 11:47 | PAIN ---
DATE OF SERVICE: 11/28/2019 PROGRESS NOTE FOR PAIN CLINIC DIAGNOSES: 1. Myofascial pain. 2. Low back pain with lumbar radiculopathy with lumbar degenerative disk disease. 3. Cervical radiculopathy with cervical degenerative disk disease. 4. Left shoulder joint pain with biceps tendinitis. HISTORY OF PRESENT ILLNESS: The patient is a 79-year-old male who returns for followup status post trigger point injection as well as cervical epidural steroid injections and lumbar epidural steroid injections, most recently 10/23/2019. The patient reports he did fairly well with this about 80% improvement after the second injection, not as much improvement after the third, but his lumbar spine has been doing fairly well. The patient is reporting increased pain with tightness and spasticity basically in the neck and shoulders, more on the left than the right, but present bilaterally, also in the upper back, mid back and low back and especially around the gluteus area on the left, but also on the right. The patient reports it is an 8 on a scale of 10 at its worse for the past week, 7 on average, 7 at its least and is a 7 today. The patient reports no new motor or sensory deficits, no new bowel or bladder incontinence. The patient reports it generally does not awaken him from sleep at night, sleeps about 8 hours at a time, worse with activity, stretching, walking and standing. The patient has not played golf yet because he has been worried about exacerbating the pain, but would like to get back outside as the weather is warmer. The patient reports no new sensory deficits. PHYSICAL EXAMINATION: VITAL SIGNS: The patient's blood pressure is 145/77, pulse 75, respirations 18, temperature 98.6 degrees Fahrenheit, weight is 179 pounds. GENERAL: The patient is awake, alert, oriented, appropriate, very pleasant demeanor. HEENT: Shows normocephalic, atraumatic. Extraocular movements are intact and symmetrical. Oral cavity shows mucous membranes moist and pink. Dentition is intact. NECK: Shows anterior throat supple without palpable lymphadenopathy noted. Swallow reflex symmetrical. CHEST: Shows normal on inspection. Breath sounds are clear bilaterally. HEART: Shows S1, S2 clear. No murmurs auscultated. ABDOMEN: Soft, nontender, nondistended. No palpable organomegaly is noted. No rebound or guarding demonstrated. BACK: The patient's back shows spine grossly in midline. Slight exaggeration of thoracic kyphosis and flattening of cervical lordotic curvature and flattening of lumbar lordotic curvature, easily palpable spinal cord stimulator, generator easily palpable in the left lower lumbar paraspinous distribution with well-healed surgical scarring noted. With palpation, the patient shows significant tenderness in the superior, medial and inferior aspect of the cervical paraspinous musculature as well as into the superior medial trapezius, more on the right than the left, but present very firm rope-like musculature, very consistent with trigger point areas of musculature on both right and left in the cervical and trapezius distribution with moderate to significant tenderness with palpation, but no specific radiation. This is true into the thoracic paraspinous musculature as well as the lumbar paraspinous muscles, again worse on the right than the left and more tender on the right, but without specific radiation, but very firm rope-like tender trigger point areas of musculature throughout the thoracic distribution as well as lumbar again worse on the right side. This is true into the lateral aspect of the gluteus on the right as well with moderate down the left gluteus superior and lateral, but more tender on the right with very firm rope-like musculature, again consistent with trigger point areas of muscle in the gluteus distribution as well. EXTREMITIES: The patient's extremities show upper extremity deep tendon reflexes 2+ in the biceps and triceps tendons. Motor exam is strong with hard tile setter strength rated at 5/5 as is bicep, tricep flexion. Lower extremities show deep tendon reflexes 1+ patellar and tendo calcaneus tendons. Motor exam is approximately 4 on a scale of 5, but symmetrical with dorsiflexion, extension, quadriceps and hamstring flexion. Peripheral pulses are 2+ radial, 1+ posterior tibial. Options were discussed with the patient. The patient's old chart was reviewed as his current medication regimen updated. Current review of systems updated today as well and we will proceed with trigger point injections of the identified musculature. Risks were discussed including but not limited to bleeding, infection, possibility of intravascular injection sequelae, spread of local anesthetic and numbness, pneumothorax, side effects of steroid medication and poor results regarding pain control. The patient understands and wished to proceed. The patient will return to clinic in approximately 4 weeks for followup. He was counseled as to return appointment, activity level and side effects to be aware of. DIAGNOSIS: Myofascial pain. PROCEDURE: Trigger point injections, bilateral cervical paraspinous musculature, bilateral trapezius musculature, bilateral thoracic paraspinous musculature, bilateral lumbar paraspinous musculature, bilateral gluteus musculature under sterile prep and drape using local anesthetic. MEDICATION INJECTED: A total of 40 mg Depo-Medrol plus total of 15 mg of 0.25% bupivacaine after negative aspiration at each injection site. CONDITION AT DISCHARGE: Stable. The patient tolerated procedure well, had no complications. CEM SEALS MD DR: HOLDEN/vanessa JOB#: [id number] / [id number]
== END ==
LOC: PNCL 10:10
PROVIDERS: ATTEND Anesthesiology
DX: M79.18 Myalgia, other site (principal); M51.16 Intervertebral disc disorders with radiculopathy, lumbar region; M50.10 Cervical disc disorder with radiculopathy, unspecified cervical region; M75.22 Bicipital tendinitis, left shoulder
CPT/HCPCS: 20553; J1030; J3490

== ENCOUNTER → 2020-02-09 | Outpatient (CLI) | payer MEDICARE ==
[2019-06-04 16:03] VITALS: BP 152/70
[~2020-02-09] MED LIST changes: -BUPIVACAINE MPF 0.25% 10 ML VIAL. ONE; +IOHEXOL 180 MG/ML 10 ML VIAL. ONE; +methylPREDNISolone ACETATE 80 MG/ML VIAL. ONE
--- NOTE | 2020-02-09 10:33 | PDOC ---
Progress Note - Pain Clinic Date of Service: DOS: DATE: 02/09/20 TIME: 10:27 Diagnosis: Dx: Cervical radiculopathy with cervical degenerative disc disease Myofascial pain Lumbar radiculopathy with lumbar degenerative disc disease History or Present Illness: HPI: 79-year-old male returns follow-up status post trigger point injection as well as cervical epidural steroid injections last seen November 28, 2019 patient had trigger point junctions are very helpful with approximately 80% improvement. Patient chief complaint today is base of the neck and shoulder pain bilaterally in the upper extremities rating the posterior deltoids posterior triceps anterio r biceps into the forearms with anterior and posterior and into the hands with some numbness and tingling and occasional shooting pain and electrical sensation in the arms bilaterally. Patient rates pain as 8 on a scale of 10 is worse over the past week 8 on average and a 6 at its least is an 8 today. Patient reports no new motor or sensory deficits no new bowel or bladder incontinence or other complaints still some low back pain as well. Physical Exam: VS: Blood pressure is 129/62 pulse 62 respirations 18 temperature 98.7 F height is 5 foot 10 inches weight is 181 pounds PE: PHYSICAL EXAMINATION: GENERAL: The patient is awake, alert, oriented, appropriate, very pleasant demeanor HEENT: Shows normocephalic, atraumatic. Extraocular movements are intact and symmetrical. Oral cavity: Mucous membranes moist and pink. NECK: Shows anterior throat supple without palpable lymphadenopathy noted. Swallow reflex symmetrical. CHEST: Shows normal on inspection. Breath sounds are clear bilaterally. HEART: Shows S1, S2 clear. No murmurs auscultated. ABDOMEN: Soft, nontender, nondistended. No palpable organomegaly is noted. No rebound or guarding demonstrated. BACK: Shows spine grossly in the midline. Normal-appearing cervical lordotic curvature. Cervical paraspinous musculature shows lateral tenderness throughout the upper middle lower distribution the paraspinous muscles bilaterally without specific trigger points but with moderate pain and no radiation. Patient does show good rotation motion cervical spine both laterally greater than 45 degrees right and left was full extension full forward flexion without significant increase in pain. There is slightly increased thoracic kyphosis, some minor flattening of the lumbar lordotic curvature. Lumbar paraspinous muscles show symmetrical on inspection, on palpation shows some moderate tenderness diffusely throughout the upper, middle and lower distribution of the paraspinous muscles bilaterally and also into the lower thoracic paraspinous musculature, firm and tender, with tender musculature more specific specific trigger points bilater ally, without radiation of pain. The patient has good rotational motion of the lumbar spine, both laterally as well as extension and flexion without significant difficulty. No tenderness over the spinous processes, sacrum or sacroiliac regions. EXTREMITIES: upper extremities show deep tendon reflexes 2+ in the biceps and triceps tendons. 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 Peripheral pulses are 2+ radial. No peripheral edema is noted bilaterally. Lower extremities are warm and dry to touch, equal in color and appearance. SKIN: Shows warm and dry, good turgor. No edema. No sores, rashes or bruising throughout. Procedure: Procedure: Options were discussed with the patient. Patient chart reviewed his current medication regimen updated current review of systems updated today as well. We will proceed with a cervical epidural steroid injection as the first in the series with fluoroscopic guidance. Risks are discussed including but not limited to bleeding infection possibility of epidural hematoma subsequent neurological compromise dural puncture headache spinal cord and or nerve damage side effects of steroid medication and poor results going pain control. Patient understands wished to proceed patient return to clinic in approximately 2 weeks for follow-up was counseled to return appointment activity level and side effects to be aware of. Medication Injected: Med Injected: Procedure cervical epidural steroid injection at the C6-7 level, using local anesthetic under sterile prep and drape using C-arm fluoroscopic guidance under local anesthesia medications injected ; 120 mg Depo-Medrol + 5 mL normal saline and 2 mL contrast; condition at discharge is stable patient tolerated procedure well. and had no complications Condition at Discharge: Condition at Discharge: Condition at discharge is stable patient tolerated procedure well had no compli cations. C[facility] MD Feb 09, 2020 10:33
== END | disposition home or self-care (01) ==
LOC: PNCL 09:35
PROVIDERS: ATTEND Anesthesiology
DX: M50.123 Cervical disc disorder at C6-C7 level with radiculopathy (principal); M51.16 Intervertebral disc disorders with radiculopathy, lumbar region; M79.18 Myalgia, other site; Z79.899 Other long term (current) drug therapy
CPT/HCPCS: 62321; J1030; J1040; Q9965

== ENCOUNTER → 2020-03-30 | Outpatient (CLI) | payer MEDICARE ==
[2019-06-04 16:03] VITALS: BP 152/70
[~2020-03-30] MED LIST changes: -IOHEXOL 180 MG/ML 10 ML VIAL. ONE; -methylPREDNISolone ACETATE 40 MG/ML VIAL. ONE; -methylPREDNISolone ACETATE 80 MG/ML VIAL. ONE
== END ==
LOC: LAB 08:22
PROVIDERS: ATTEND Internal Medicine Gastroenterology
DX: Z01.812 Encounter for preprocedural laboratory examination (principal); Z86.010 Personal history of colon polyps; D64.9 Anemia, unspecified; Z20.828 Contact with and (suspected) exposure to other viral communicable diseases
CPT/HCPCS: U0003-CS

== ENCOUNTER → 2020-04-02 | Day surgery (SDC) | payer MEDICARE ==
[~2020-04-02] MED LIST changes: +IV NORMAL SALINE 1000ML BAG 1,000 ML IV ONE; +IV RINGERS,LACTATED 1000ML 1,000 ML IV SCH; +LIDOCAINE 2% PF 5 ML VIAL. ONE; +PROPOFOL 10 MG/ML (20ML) VIAL. IV ONE
[2020-04-02 09:13] VITALS: BP 130/54
== END ==
LOC: SURG 07:42
PROVIDERS: ATTEND Internal Medicine Gastroenterology
DX: D50.0 Iron deficiency anemia secondary to blood loss (chronic) (principal); K57.30 Diverticulosis of large intestine without perforation or abscess without bleeding; K64.0 First degree hemorrhoids; K29.50 Unspecified chronic gastritis without bleeding; I10 Essential (primary) hypertension; E11.9 Type 2 diabetes mellitus without complications; E78.5 Hyperlipidemia, unspecified; Z79.899 Other long term (current) drug therapy
CPT/HCPCS: 43235; 45378; J2704

== ENCOUNTER → 2020-04-19 | Outpatient (CLI) | payer MEDICARE ==
[2020-04-02 09:13] VITALS: BP 130/54
[~2020-04-19] MED LIST changes: +BUPIVACAINE MPF 0.25% 10 ML VIAL. ONE; -IV NORMAL SALINE 1000ML BAG 1,000 ML IV ONE; -IV RINGERS,LACTATED 1000ML 1,000 ML IV SCH; -LIDOCAINE 2% PF 5 ML VIAL. ONE; -PROPOFOL 10 MG/ML (20ML) VIAL. IV ONE; +methylPREDNISolone ACETATE 40 MG/ML VIAL. ONE
--- NOTE | 2020-04-19 10:40 | PDOC ---
Progress Note - Pain Clinic Date of Service: DOS: DATE: 04/19/20 TIME: 10:36 Diagnosis: Dx: Myofascial pain Low back pain with lumbar radiculopathy and lumbar degenerative disc disease Cervical radiculopathy with cervical degenerative disc disease Left shoulder joint pain History or Present Illness: HPI: 79-year-old male returns follow-up status post trigger point injections well cervical epidural steroid injection x1 last seen February 08. Patient which did very well after the last injection with 80% improvement now is having significant generalized myofascial pain base the neck upper neck shoulders worse on the right than the left upper back mid back and low back and right side greater than left in the low back patient ports a 9 on scale 10 is worse with the past week 8 on average 8 its least is an 8 today patient was aching sharp dull constant radiating at times mainly in the base the neck and shoulders but also in the low back especially on the right side. Patient ports worse with walking standing exercise better with stretching and heat application but is becoming much more noticeable. Patient reports is getting difficult but generally is not awakening him from sleep at night although can occasionally. Patient reports no new motor or sensory deficits no new bowel or bladder incontinence or other complaints. Physical Exam: VS: Blood pressure is 136/64 pulse 69 respirations 18 temperature 98.2 F height is 5 feet 10 inches weight is 184 pounds PE: PHYSICAL EXAMINATION: GENERAL: The patient is awake, alert, oriented, appropriate, very pleasant demeanor HEENT: Shows normocephalic, atraumatic. Extraocular movements are intact and symmetrical. Oral cavity: Mucous membranes moist and pink. NECK: Shows anterior throat supple without palpable lymphadenopathy noted. Swallow reflex symmetrical. CHEST: Shows normal on inspection. Breath sounds are clear bilaterally, no rales rhonchi or wheezes auscultated. HEART: Shows S1, S2 clear. No murmurs auscultated. ABDOMEN: Soft, nontender, nondistended obese. No palpable organomegaly is noted. No rebound or guarding demonstrated. BACK: Shows spine grossly in the midline. Normal-appearing cervical lordotic curvature. There is slightly increased thoracic kyphosis, some minor flattening of the lumbar lordotic curvature. Lumbar paraspinous muscles show symmetrical on inspection, on palpation shows some moderate tenderness diffusely throughout the upper, middle and lower distribution of the paraspinous muscles bilaterally and also into the lower thoracic paraspinous musculature, firm and tender.patient shows multiple regions of very firm ropelike musculature in the bilateral cervical paraspinous posterior also into the superior medial trapezius more on the right than the left very firm very ropelike consistent with trigger point areas of musculature but without specific radiation this is true into the superior and medial aspect of the rhomboid and thoracic paraspinous musculature again right greater than left without radiation but very firm ropelike musculature also in the lumbar paraspinous posterior bilaterally very firm ropelike very tender musculature consistent with trigger point areas of muscle again right side greater than left and much more tender on the right side as well. Without radiation of pain. The patient has good rotational motion of the lumbar spine, both laterally as well as extension and flexion without significant difficulty. No tenderness over the spinous processes, sacrum or sacroiliac regions. EXTREMITIES: Lower extremities show deep tendon reflexes 1+ in the patellar and tendo calcaneus tendons. Motor exam is 4 on a scale of 5 with right dorsiflexion, extension, quadriceps and hamstring flexion and 4/5 on the left. Peripheral pulses are 1+ posterior tibial. No peripheral edema is noted bilaterally. Lower extremities are warm and dry to touch, equal in color and appearance. SKIN: Shows warm and dry, good turgor. No edema. No sores, rashes or bruising throughout. Procedure: Procedure: Options were discussed with the patient. Patient's old chart was reviewed his his current medication regimen updated current review of systems updated today as well. We will proceed with trigger point areas of the identified musculature risks are discussed including but not limited to bleeding infection possibility of intravascular injection sequelae spread local anesthetic numbness pneumothorax side effects steroid medication and portal scarring pain control. Patient understands wished to proceed. Patient return to clinic in approximately 4 weeks for follow-up was counseled as to return appointment activity level and side effects to be aware of. Medication Injected: Med Injected: Under sterile prep and drape trigger points were identified and injected in the bilateral cervical paraspinous musculature, trapezius musculature bilaterally, thoracic paraspinous posterior bilaterally, lumbar paraspinous muscles bilaterally, after negative aspiration each injection site. Total medications were 14 cc 0.25 bupivacaine and 40 mg total of Depo-Medrol. Patient tolerated procedure well had no complications. Condition at Discharge: Condition at Discharge: Condition at discharge is stable patient alert procedure well had no complications. C[facility] MD Apr 19, 2020 10:40
== END | disposition home or self-care (01) ==
LOC: PNCL 09:38
PROVIDERS: ATTEND Anesthesiology
DX: M79.18 Myalgia, other site (principal); M51.16 Intervertebral disc disorders with radiculopathy, lumbar region; M50.10 Cervical disc disorder with radiculopathy, unspecified cervical region; M25.512 Pain in left shoulder; I10 Essential (primary) hypertension; E78.00 Pure hypercholesterolemia, unspecified; M19.90 Unspecified osteoarthritis, unspecified site; E11.9 Type 2 diabetes mellitus without complications; N40.0 Benign prostatic hyperplasia without lower urinary tract symptoms; F41.9 Anxiety disorder, unspecified; Z85.828 Personal history of other malignant neoplasm of skin; Z79.899 Other long term (current) drug therapy; Z79.84 Long term (current) use of oral hypoglycemic drugs; Z98.890 Other specified postprocedural states
CPT/HCPCS: 20553; J1030; J3490

== ENCOUNTER → 2020-06-30 | Outpatient (CLI) | payer MEDICARE ==
[2020-04-02 09:13] VITALS: BP 130/54
[~2020-06-30] MED LIST changes: -LISI-338 PO; +LISI-517 PO; +LISI10TA16 PO; -LISI10TA2 PO
--- NOTE | 2020-06-30 11:46 | PDOC ---
Progress Note - Pain Clinic Date of Service: DOS: DATE: 06/30/20 TIME: 11:42 Diagnosis: Dx: Myofascial pain Low back pain with lumbar radiculopathy and lumbar degenerative disc disease Cervical radiculopathy with cervical degenerative disease Left shoulder joint pain History or Present Illness: HPI: 79-year-old male returns follow-up status post trigger point ejections and cervical epidural steroid injections most recently seen April 19, 2020. Patient was about 80% better after trigger point injections now the pain is r eturning with spasticity and tightness in the neck and shoulders upper back mid back low back and bilateral hips patient reports is worse with walking standing changing positions better with sitting or laying down does not awaken her from sleep at night patient reports it is a radiating pain across the low back and the hips as well as sharp alternate with dull in the back of the neck shoulders upper back mid back and low back. Patient reports is a 10 on scale 10 is worse over the past week 8 on average 8 its least is an 8 today. Patient reports no new motor or sensory deficits no new bowel or bladder incontinence or other complaints. Physical Exam: VS: Blood pressure is 143/61 pulse 64 respirations 18 temperature 98.3 F height 5 feet 10 inches weight 186 pounds PE: PHYSICAL EXAMINATION: GENERAL: The patient is awake, alert, oriented, appropriate, very pleasant demeanor HEENT: Shows normocephalic, atraumatic. Extraocular movements are intact and symmetrical. NECK: Shows anterior throat supple without palpable lymphadenopathy noted. Swallow reflex symmetrical. CHEST: Shows normal on inspection. Breath sounds are clear bilaterally, no rales or rhonchi. HEART: Shows S1, S2 clear. No murmurs auscultated. ABDOMEN: Soft, nontender, nondistended, obese. No palpable organomegaly is noted. No rebound or guarding demonstrated. BACK: Shows spine grossly in the midline. Normal-appearing cervical lordotic curvature. There is slightly increased thoracic kyphosis, some minor flattening of the lumbar lordotic curvature. Cervical paraspinous but shows symmetrical with inspection on palpation some very firm ropelike musculature in the upper middle and lower distribution the paraspinous muscles bilaterally very firm ropelike consistent with trigger point areas of musculature but without specific radiation. Likewise patient has multiple areas of very firm ropelike musculature in the bilateral trapezius as well as the upper thoracic and rhomboid distribution also mid thoracic and lower thoracic lumbar paraspinous but shows symmetrical but also with very firm ropelike musculature with palpa tion consistent with trigger point areas bilaterally again without radiation. This is true to the superior and lateral aspect of the gluteus more on the right than the left. The patient has good rotational motion of the lumbar spine, both laterally as well as extension and flexion without significant difficulty. No tenderness over the spinous processes, sacrum or sacroiliac regions. EXTREMITIES: Lower extremities show deep tendon reflexes 1+ in the patellar and tendo calcaneus tendons. Motor exam is 4 on a scale of 5 with right dorsiflexion, extension, quadriceps and hamstring flexion and 4/5 on the left. Peripheral pulses are 1+ posterior tibial. No peripheral edema is noted bilaterally. Lower extremities are warm and dry to touch, equal in color and appearance. SKIN: Shows warm and dry, good turgor. No edema. No sores, rashes or bruising throughout. Procedure: Procedure: Options were discussed with the patient. Patient will chart reviews her current medication regimen updated current review of systems updated today as well. We will proceed with trigger point injections of the identified musculature. Risks were discussed including but not limited to bleeding infection possibility of intravascular injection sequelae spread to local acetic numbness pneumothorax side effects of steroid medication and portal scarring pain control. Patient understands wished to proceed. Patient will return to clinic in approximately 4 weeks for follow-up was counseled as return appointment activity level and side effects to be aware of. Medication Injected: Med Injected: Under sterile prep and drape cervical paraspinous but cervical trapezius musculature thoracic upper middle and lower distribution and the lumbar paraspinous muscles as well as superior medial lateral gluteus musculature were prepped and draped and using 25-gauge needle trigger points were identified and injected a total of 15 injections with negative aspiration each injection site total of 15 cc of 0.25% bupivacaine and total of 40 mg Depo-Medrol. Patient tolerated procedure well and had no complications. Condition at Discharge: Condition at Discharge: Condition at discharge stable, patient tolerated the procedure well had no complications. CEM SEALS MD Jun 30, 2020 11:46
== END | disposition home or self-care (01) ==
LOC: PNCL 11:04
PROVIDERS: ATTEND Anesthesiology
DX: M51.16 Intervertebral disc disorders with radiculopathy, lumbar region (principal); M50.10 Cervical disc disorder with radiculopathy, unspecified cervical region; M25.512 Pain in left shoulder; M79.18 Myalgia, other site; I12.9 Hypertensive chronic kidney disease with stage 1 through stage 4 chronic kidney disease, or unspecified chronic kidney disease; N18.9 Chronic kidney disease, unspecified; E78.00 Pure hypercholesterolemia, unspecified; E11.22 Type 2 diabetes mellitus with diabetic chronic kidney disease; M19.90 Unspecified osteoarthritis, unspecified site; F32.9 Major depressive disorder, single episode, unspecified; F41.9 Anxiety disorder, unspecified; Z85.828 Personal history of other malignant neoplasm of skin; Z79.899 Other long term (current) drug therapy; Z79.82 Long term (current) use of aspirin; Z79.84 Long term (current) use of oral hypoglycemic drugs; Z98.890 Other specified postprocedural states
CPT/HCPCS: 20553; J1030; J3490

== ENCOUNTER → 2020-09-20 | Outpatient (CLI) | payer MEDICARE ==
[2020-04-02 09:13] VITALS: BP 130/54
--- NOTE | 2020-09-20 10:50 | PDOC ---
Progress Note - Pain Clinic Date of Service: DOS: DATE: 09/20/20 TIME: 10:44 Diagnosis: Dx: Myofascial pain Low back pain with lumbar radiculopathy and lumbar degenerative disease Cervical radiculopathy with cervical degenerative disease Left shoulder joint pain with biceps tendinitis History or Present Illness: HPI: 80-year-old male returns for follow-up status post trigger point injections as well as both lumbar epidural surgeries and cervical epidurals or injections patient reports he did well after his last trigger point injection which was June 30, 2020 about 50 to 80% improvement the pain is returning now but only in the low back his shoulders neck is doing much better patient is been increase his activity with greater ease and comfort is been playing golf and doing outdoor housework as well as travel with greater ease and comfort with the pain in the low back and left and right superior hips and lateral flanks are painful as well patient reports pain is a 9 on scale 10 is worse over the past week 8 on average 8 its least is 8 today patient reports that sharp and shooting can be constant in the low back itself mid back and in the right and left lateral flanks as well as the upper aspect of the posterior hips. Patient reports no new motor or sensory deficits no new bowel or bladder incontinence worse with walking standing changing positions better with sitting or laying down generally does not awaken from sleep at night. Physical Exam: VS: Blood pressure is 164/78 pulse 58 respirations 18 temperature 98.2 F height is 5 foot 10 inches weight is 183 pounds PE: PHYSICAL EXAMINATION: GENERAL: The patient is awake, alert, oriented, appropriate, very pleasant demeanor HEENT: Shows normocephalic, atraumatic. Extraocular movements are intact and symmetrical. Oral cavity: Mucous membranes moist and pink. Dentition is intact. NECK: Shows anterior throat supple without palpable lymphadenopathy noted. Swallow reflex symmetrical. CHEST: Shows normal on inspection. Breath sounds are clear bilaterally, no rales or rhonchi. HEART: Shows S1, S2 clear. No murmurs auscultated. ABDOMEN: Soft, nontender, nondistended, obese. No palpable organomegaly is noted. No rebound or guarding demonstrated. BACK: Shows spine grossly in the midline. Normal-appearing cervical lordotic curvature. There is increased thoracic kyphosis, some flattening of the lumbar lordotic curvature. Lumbar paraspinous muscles show symmetrical on inspection, on palpation shows some moderate tenderness with very firm ropelike musculature in the lower thoracic distribution bilaterally as well as the upper lower and middle distribution of the lumbar paraspinous muscles are very firm ropelike musculature consistent with trigger point areas as well. Also in the superior medial gluteus shows very firm ropelike musculature bilaterally and into the right lateral aspect of the gluteus as well very firm with consistency of trigger point areas without significant radiation but very tender on palpation bilaterally. The patient has good rotational motion of the lumbar spine, both laterally as well as extension and flexion without significant difficulty. No tenderness over the spinous processes, sacrum or sacroiliac regions. EXTREMITIES: Lower extremities show deep tendon reflexes 1+ in the patellar and tendo calcaneus tendons. Motor exam is 4 on a scale of 5 with right dorsiflexion, extension, quadriceps and hamstring flexion and 4/5 on the left. Peripheral pulses are 1+ posterior tibial. No peripheral edema is noted b ilaterally. Lower extremities are warm and dry to touch, equal in color and appearance. SKIN: Shows warm and dry, good turgor. No edema. No sores, rashes or bruising throughout. Procedure: Procedure: Options discussed with the patient. Patient chart reviews his current medication regimen updated current review of systems updated today as well. We will proceed with trigger point injections of the identified musculature in the bilateral thoracic paraspinous muscle bilateral lumbar paraspinous posterior bilateral gluteus musculature. Risks discussed including but not limited to, bleeding infection possibility of intravascular injection sequelae spread local anesthetic and numbness side effects steroid medication portals regarding pain control. Patient understands wished to proceed. Patient return to clinic in approximate 4 weeks for follow-up was counseled as return appointment activity level and side effects to be aware of. Medication Injected: Med Injected: Under sterile prep and drape patient sitting position patient's thoracic paraspinous posterior lumbar paraspinous posterior and gluteus musculature was all sterilely prepped and draped using 25-gauge needle trigger points were identified and injected after negative aspiration each injection site total of 10 cc of 0.25% bupivacaine and total of 40 mg Depo-Medrol. Patient tolerated seizure well had no complications. Condition at Discharge: Condition at Discharge: Additional discharge stable, patient tolerated the procedure well had no complications. CEM SEALS MD Sep 20, 2020 10:50
--- NOTE | 2020-09-20 10:51 | PDOC4 ---
PROCEDURE Procedure Patient was consented for trigger point injections. Risk were discussed inc luding but not limited to bleeding infection possibility of intravascular injection sequelae spread to local anesthetic numbness, side effects of steroid medication and poor results regarding pain control. Patient understands wished to proceed. Under sterile prep and drape patient sitting position patient's thoracic paraspinous posterior lumbar paraspinous posterior and gluteus musculature was all sterilely prepped and draped using 25-gauge needle trigger points were identified and injected after negative aspiration each injection site total of 10 cc of 0.25% bupivacaine and total of 40 mg Depo-Medrol. Patient tolerated seizure well had no complications. CEM SEALS MD Sep 20, 2020 10:51
== END | disposition home or self-care (01) ==
LOC: PNCL 10:03
PROVIDERS: ATTEND Anesthesiology
DX: M51.16 Intervertebral disc disorders with radiculopathy, lumbar region (principal); M50.10 Cervical disc disorder with radiculopathy, unspecified cervical region; M75.22 Bicipital tendinitis, left shoulder; M79.18 Myalgia, other site; M25.512 Pain in left shoulder; I12.9 Hypertensive chronic kidney disease with stage 1 through stage 4 chronic kidney disease, or unspecified chronic kidney disease; E11.22 Type 2 diabetes mellitus with diabetic chronic kidney disease; N18.9 Chronic kidney disease, unspecified; E78.00 Pure hypercholesterolemia, unspecified; M19.90 Unspecified osteoarthritis, unspecified site; F41.9 Anxiety disorder, unspecified; Z79.899 Other long term (current) drug therapy; Z98.890 Other specified postprocedural states
CPT/HCPCS: 20553; J1030; J3490

== ENCOUNTER → 2020-10-11 | Outpatient (CLI) | payer MEDICARE ==
[2020-04-02 09:13] VITALS: BP 130/54
[~2020-10-11] MED LIST changes: -BUPIVACAINE MPF 0.25% 10 ML VIAL. ONE; +IOHEXOL 180 MG/ML 10 ML VIAL. ONE; +methylPREDNISolone ACETATE 80 MG/ML VIAL. ONE
--- NOTE | 2020-10-11 15:56 | PDOC ---
Progress Note - Pain Clinic Date of Service: DOS: DATE: 10/11/20 TIME: 15:53 Diagnosis: Dx: Lumbar radiculopathy with low back pain lumbar degenerative disc disease Myofascial pain Cervical radiculopathy with cervical degenerative disc disease Left shoulder joint pain History or Present Illness: HPI: 80-year-old male returns for follow-up status post trigger point injections last seen September patient did very well reports his neck is doing quite a bit better with about 50% improvement overall his main complaint today is low back pain however with pain rating the bilateral lower extremities mostly the posterior gluteus posterior lateral thighs and anterior thighs reports slightly worse on the right than the left but present bilaterally especially in the low back patient reports is worse with walking standing changing positions trying to play golf has been waking from sleep at night occasionally but not every night patient reports is a 9 on scale 10 is worse over the past week 8 on average 8 its least and is an 8 today patient describes pain is stabbing and constant can be sharp and stabbing as well pain radiating to the lower extremities. Patient reports no bowel or bladder incontinence no new motor or sensory deficits. Physical Exam: VS: Blood pressure is 144/67 pulse 64 respirations 16 temperature 98.3 F weight is 181 pounds PE: PHYSICAL EXAMINATION: GENERAL: The patient is awake, alert, oriented, appropriate, very pleasant demeanor HEENT: Shows normocephalic, atraumatic. Extraocular movements are intact and symmetrical. Oral cavity: Mucous membranes moist and pink. NECK: Shows anterior throat supple without palpable lymphadenopathy noted. Swallow reflex symmetrical. CHEST: Shows normal on inspection. Breath sounds are clear bilaterally, distant but no rales rhonchi or wheezes auscultated. HEART: Shows S1, S2 clear. No murmurs auscultated. ABDOMEN: Soft, nontender, nondistended, obese. No palpable organomegaly is noted. No rebound or guarding demonstrated. BACK: Shows spine grossly in the midline. Normal-appearing cervical lordotic curvature. There is slightly increased thoracic kyphosis, some minor flattening of the lumbar lordotic curvature. Well-healed midline surgical scar is noted in the lumbar distribution. Lumbar paraspinous muscles show symmetrical on inspection, on palpation shows some moderate tenderness diffusely throughout the upper, middle and lower distribution of the paraspinous muscles, but without specific trigger points, without radiation of pain. The patient has good rotational motion of the lumbar spine, both laterally as well as extension and flexion without significant difficulty. No tenderness over the spinous processes, sacrum or sacroiliac regions. EXTREMITIES: Lower extremities show deep tendon reflexes 1+ in the patellar and tendo calcaneus tendons. Motor exam is 4 on a scale of 5 with right dorsiflexi on, extension, quadriceps and hamstring flexion and 4/5 on the left. Peripheral pulses are 1+ posterior tibial. No peripheral edema is noted bilaterally. Lower extremities are warm and dry to touch, equal in color and appearance. SKIN: Shows warm and dry, good turgor. No edema. No sores, rashes or bruising throughout. Procedure: Procedure: Options discussed with the patient. Patient's old chart was reviewed his current medication regimen updated current review of systems updated today as well. We will proceed with lumbar epidural steroid injection today with fluoroscopic guidance. Risks were discussed including but not limited to: Bleeding, infection, possibility of epidural hematoma and subsequent neurological compromise, dural puncture, headaches, spinal cord and/or nerve damage, side effects of steroid medication, and poor results regarding pain control. Patient understands and wished to proceed. Patient will return to clinic approximate 2 weeks for follow-up, was counseled as to return appointment activity level and side effects to be aware of. Medication Injected: Med Injected: Procedure is lumbar epidural steroid injection under local anesthetic using sterile prep and drape at the L4-5 level using C-arm fluoroscopic guidance in both AP and lateral views medications injected is 120 mg Depo-Medrol + 10 mL preservative-free normal saline and 2 mL contrast- condition at discharge is stable patient tolerated procedure well had no complications. Condition at Discharge: Condition at Discharge: Condition at discharge stable, patient already the procedure well and had no complications. CEM SEALS MD Oct 11, 2020 15:56
--- NOTE | 2020-10-11 15:57 | PDOC4 ---
PROCEDURE Procedure Patient was consented for lumbar epidural steroid injection. Risks were dis cussed including but not limited to: Bleeding, infection, possibility of epidural hematoma and subsequent neurological compromise, dural puncture, headaches, spinal cord and/or nerve damage, side effects of steroid medication, and poor results regarding pain control. Patient understands and wished to proceed. Procedure is lumbar epidural steroid injection under local anesthetic using sterile prep and drape at the L4-5 level using C-arm fluoroscopic guidance in both AP and lateral views medications injected is 120 mg Depo-Medrol + 10 mL preservative-free normal saline and 2 mL contrast- condition at discharge is stable patient tolerated procedure well had no complications. CEM SEALS MD Oct 11, 2020 15:57
== END | disposition home or self-care (01) ==
LOC: PNCL 14:17
PROVIDERS: ATTEND Anesthesiology
DX: M51.16 Intervertebral disc disorders with radiculopathy, lumbar region (principal); M54.5 Low back pain; M79.18 Myalgia, other site; M50.10 Cervical disc disorder with radiculopathy, unspecified cervical region; M25.512 Pain in left shoulder; I12.9 Hypertensive chronic kidney disease with stage 1 through stage 4 chronic kidney disease, or unspecified chronic kidney disease; E11.22 Type 2 diabetes mellitus with diabetic chronic kidney disease; N18.9 Chronic kidney disease, unspecified; E78.00 Pure hypercholesterolemia, unspecified; M19.90 Unspecified osteoarthritis, unspecified site; F41.9 Anxiety disorder, unspecified; Z79.899 Other long term (current) drug therapy; Z98.890 Other specified postprocedural states; Z85.828 Personal history of other malignant neoplasm of skin
CPT/HCPCS: 62323; J1030; J1040; Q9965

== ENCOUNTER → 2020-11-25 | Outpatient (CLI) | payer MEDICARE ==
[2020-04-02 09:13] VITALS: BP 130/54
--- NOTE | 2020-11-25 08:41 | PDOC4 ---
PROCEDURE Procedure Patient was consented for cervical epidural steroid injection. Risks were d iscussed including but not limited to: Bleeding, infection, possibility of epidural hematoma and subsequent neurological compromise, dural puncture, headaches, spinal cord and/or nerve damage, side effects of steroid medication, and poor results regarding pain control. Patient understands and wished to proceed. Procedure cervical epidural steroid injection at the C6-7 level, using local anesthetic under sterile prep and drape using C-arm fluoroscopic guidance under local anesthesia medications injected ;120 mg Depo-Medrol +5 mL normal saline and 2 mL contrast; condition at discharge is stable patient tolerated procedure well. and had no complications CEM SEALS MD Nov 25, 2020 08:41
--- NOTE | 2020-11-25 08:41 | PDOC ---
Progress Note - Pain Clinic Date of Service: DOS: DATE: 11/25/20 TIME: 08:38 Diagnosis: Dx: Lumbar radiculopathy with lumbar degenerative disc disease and low back pain Cervical radiculopathy with cervical degenerative disc disease Myofascial pain Left shoulder joint pain with biceps tendinitis History or Present Illness: HPI: 80-year-old male returns for follow-up status post trigger point junctions as well as lumbar epidural steroid injection October 11, 2020. Patient reports did very well after the lumbar injection about 80% improvement but his main complaint is neck and bilateral upper extremity pain with radiating pain and some weakness in the upper extremities bilaterally patient reports is getting worse over the past 2 to 3 weeks not the result of any specific injury or accident that he is aware but reports the pain is 8 on scale 10 at its worst 8 on average and a 7 his least is a 7 today patient reports it is sharp and aching in the low back is also in the upper back and shoulders when sitting down is fairly good and tolerable however when he is moving using his upper extremities raising over his head with his hands has been disturbing sleep occasionally but not most nights patient reports no new motor or sensory deficits no new bowel or bladder incontinence or other complaints. Physical Exam: VS: Blood pressure is 135/70 pulse is 1 respirations 18 temperature 97.9 F height is 5 foot, 10 inches weight is 180 pounds. PE: PHYSICAL EXAMINATION: GENERAL: The patient is awake, alert, oriented, appropriate, very pleasant in demeanor HEENT: Shows normocephalic, atraumatic. Extraocular movements are intact and symmetrical. Oral cavity: Mucous membranes moist and pink. NECK: Shows anterior throat supple without palpable lymphadenopathy noted. Swallow reflex symmetrical. CHEST: Shows normal on inspection. Breath sounds are clear bilaterally. HEART: Shows S1, S2 clear. No murmurs auscultated. ABDOMEN: Soft, nontender, nondistended, obese. No palpable organomegaly is n oted. No rebound or guarding demonstrated. BACK: Shows spine grossly in the midline. Normal-appearing cervical lordotic curvature. Cervical paraspinous muscles show symmetrical with inspection, on palpation some moderate tenderness diffusely in the middle and inferior aspect of the cervical paraspinous musculature but without specific trigger points without radiation. Patient shows good rotation of motion cervical spine both laterally as well as extension flexion without significant increase in pain. T here is slightly increased thoracic kyphosis, some minor flattening of the lumbar lordotic curvature. Lumbar paraspinous muscles show symmetrical on inspection, on palpation shows some moderate tenderness diffusely throughout the upper, middle and lower distribution of the paraspinous muscles, but without specific trigger points, without radiation of pain. The patient has good ro tational motion of the lumbar spine, both laterally as well as extension and flexion without significant difficulty. No tenderness over the spinous processes, sacrum or sacroiliac regions. EXTREMITIES: Lower extremities show deep tendon reflexes 1+ in the patellar and tendo calcaneus tendons. Motor exam is 4 on a scale of 5 with right dorsiflexion, extension, quadriceps and hamstring flexion and 4/5 on the left. Peripheral pulses are 1+ posterior tibial. No peripheral edema is noted bilaterally. Lower extremities are warm and dry. 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 Peripheral pulses are 2+ radial no peripheral edema is noted. Shoulder shrug is strong and intact without loss of strength on resistance. SKIN: Shows warm and dry, good turgor. No edema. No sores, rashes or bruising throughout. Procedure: Procedure: Options discussed with patient. Patient chart was reviewed his current medication regimen updated current review of systems updated today as well. We will proceed with a cervical epidural steroid injection today with fluoroscopic guidance. Risks were discussed including but not limited to: Bleeding, infection, possibility of epidural hematoma and subsequent neurological compromise, dural puncture, headaches, spinal cord and/or nerve damage, side effects of steroid medication, and poor results regarding pain control. Patient understands and wished to proceed. Patient will return to the clinic in approximate 2 weeks for follow-up, was counseled as to return appointment activity level and side effects to be aware of. Medication Injected: Med Injected: Procedure cervical epidural steroid injection at the C6-7 level, using local anesthetic under sterile prep and drape using C-arm fluoroscopic guidance under local anesthesia medications injected ;120 mg Depo-Medrol +5 mL normal saline and 2 mL contrast; condition at discharge is stable patient tolerated procedure well. and had no complications Condition at Discharge: Condition at Discharge: Condition at discharge is stable, patient tolerated procedure well and had no complications. CEM SEALS MD Nov 25, 2020 08:41
== END | disposition home or self-care (01) ==
LOC: PNCL 07:56
PROVIDERS: ATTEND Anesthesiology
DX: M50.10 Cervical disc disorder with radiculopathy, unspecified cervical region (principal); M51.16 Intervertebral disc disorders with radiculopathy, lumbar region; M79.18 Myalgia, other site; M75.22 Bicipital tendinitis, left shoulder; M25.512 Pain in left shoulder; I10 Essential (primary) hypertension; E78.00 Pure hypercholesterolemia, unspecified; N40.0 Benign prostatic hyperplasia without lower urinary tract symptoms; M19.90 Unspecified osteoarthritis, unspecified site; E11.9 Type 2 diabetes mellitus without complications; F41.9 Anxiety disorder, unspecified; Z85.828 Personal history of other malignant neoplasm of skin; Z79.899 Other long term (current) drug therapy; Z98.890 Other specified postprocedural states
CPT/HCPCS: 62321; J1030; J1040; Q9965

== ENCOUNTER → 2021-01-19 | Outpatient (CLI) | payer MEDICARE ==
[2020-04-02 09:13] VITALS: BP 130/54
[~2021-01-19] MED LIST changes: +BUPIVACAINE MPF 0.25% 10 ML VIAL. ONE; -IOHEXOL 180 MG/ML 10 ML VIAL. ONE; -LISI2.5T PO; +LISI2.5T12 PO; -methylPREDNISolone ACETATE 80 MG/ML VIAL. ONE
--- NOTE | 2021-01-19 10:00 | PDOC ---
Progress Note - Pain Clinic Date of Service: DOS: DATE: 01/19/21 TIME: 09:55 Diagnosis: Dx: Myofascial pain Low back pain with lumbar radiculopathy lumbar degenerative disease Cervical radiculopathy with cervical degenerative disease Left shoulder joint pain History or Present Illness: HPI: 80-year-old male returns for follow-up status post cervical epidural steroid injection and lumbar epidural steroid injection patient reports did very well for about 80% improvement for a month and a half after his last injection his main complaint today though is tightness and spasticity in the base the neck shoulders upper back mid back low back and into the hips bilaterally specially on the lateral aspect of the hips patient reports sore stabbing aching sharp can be constant with activity standing walking changing positions initially doing much better with distance walking doing household activities recreational activities travel with greater ease and comfort still better with sitting or laying down generally is not awaken her from sleep at night. Patient reports no new motor or sensory deficits rates his pain a 9 on scale 10 is worst over the past week 8 on average 7 its least is a 7 today. Physical Exam: VS: Blood pressure is 125/66 pulse 66 respirations 18 temperature is 98.1 F height is 5 feet 10 inches weight is 181 pounds PE: PHYSICAL EXAMINATION: GENERAL: The patient is awake, alert, oriented, appropriate, very pleasant in demeanor HEENT: Shows normocephalic, atraumatic. Extraocular movements are intact and symmetrical. Oral cavity: Mucous membranes moist and pink. NECK: Shows anterior throat supple without palpable lymphadenopathy noted. Swallow reflex symmetrical. CHEST: Shows normal on inspection. Breath sounds are clear bilaterally, no rales rhonchi wheezes auscultated. HEART: Shows S1, S2 clear. No murmurs auscultated. ABDOMEN: Soft, nontender, nondistended, obese. No palpable organomegaly is noted. No rebound or guarding demonstrated. BACK: Shows spine grossly in the midline. Normal-appearing cervical lordotic curvature. There is slightly increased thoracic kyphosis, some minor flattening of the lumbar lordotic curvature. With palpation shows significant tenderness very firm ropelike musculature in the bilateral cervical paraspinous posterior bilateral trapezius musculature with very firm ropelike musculature consistent with trigger point areas but without specific radiation this is true into the rhomboid distribution of the thoracic paraspinous muscle as well as the lumbar paraspinous muscles bilaterally slightly more on the right than the left but present bilaterally very firm ropelike musculature consistent with trigger point areas without radiation as well. Also the superior lateral aspect of the gluteus again worse on the right than the left very firm ropelike musculature consistent with trigger point areas of musculature bilaterally. Lumbar paraspinous muscles show symmetrical on inspection, on palpation shows some moderate tenderness diffusely throughout the upper, middle and lower distribution of the paraspinous muscles. The patient has good rotational motion of the lumbar spine, both laterally as well as extension and flexion without significant difficulty. No tenderness over the spinous processes, sacrum or sacroiliac regions. EXTREMITIES: Lower extremities show deep tendon reflexes 1+ in the patellar and tendo calcaneus tendons. Motor exam is 4 on a scale of 5 with right dorsiflexion, extension, quadriceps and hamstring flexion and 4/5 on the left. Peripheral pulses are 1 posterior tibial. No peripheral edema is noted bilaterally. Lower extremities are warm and dry to touch, equal in color and appearance. SKIN: Shows warm and dry, good turgor. No edema. No sores, rashes or bruising throughout. Procedure: Procedure: Options were discussed with the patient. Patient chart reviewed his current medication regimen updated current review of systems updated today as well. We will proceed with trigger point injections of the identified musculature. Risk were discussed including but not limited to bleeding infection possibility of intravascular injection sequelae spread of local anesthetic numbness pneumothorax side effects steroid medication portals regarding pain control. Patient understands wished to proceed. Patient return to clinic in approximately 4 weeks for follow-up, was counseled as to return appointment activity level and side effects to be aware of. Medication Injected: Med Injected: Patient sitting position under sterile prep and drape, trigger point areas identified in the bilateral cervical paraspinous muscle bilateral trapezius muscles bilateral rhomboid musculature bilateral facet paraspinous musculature, bilateral lumbar paraspinous musculature and bilateral gluteus musculature. Using 25-gauge needle after negative aspiration each injection site total of 15 cc 0.25% ropivacaine and 40 mg Depo-Medrol was injected. Patient tolerated the procedure well had no complications. Condition at Discharge: Condition at Discharge: Condition at discharge stable, patient already procedure well and had no complications. CEM SEALS MD Jan 19, 2021 10:00
--- NOTE | 2021-01-19 10:01 | PDOC4 ---
Procedure Note: ICD 10 Code: ICD 10 Code: M60.89 M54.12 M54.16 Procedure Note: Patient was consented for trigger point injections. Discussed including not limited to bleeding infection possibility of intravascular injection sequelae spread of local anesthetic numbness pneumothorax side effects steroid medication and poor results regarding pain control. Patient understands wished to proceed. Patient sitting position under sterile prep and drape, trigger point areas identified in the bilateral cervical paraspinous muscle bilateral trapezius muscles bilateral rhomboid musculature bilateral facet paraspinous musculature, bilateral lumbar paraspinous musculature and bilateral gluteus musculature. Using 25-gauge needle after negative aspiration each injection site total of 15 cc 0.25% ropivacaine and 40 mg Depo-Medrol was injected. Patient tolerated the procedure well had no complications. CEM SEALS MD Jan 19, 2021 10:01
== END ==
LOC: PNCL 09:20
PROVIDERS: ATTEND Anesthesiology
DX: M79.18 Myalgia, other site (principal); M51.16 Intervertebral disc disorders with radiculopathy, lumbar region; M50.10 Cervical disc disorder with radiculopathy, unspecified cervical region; I10 Essential (primary) hypertension; E78.00 Pure hypercholesterolemia, unspecified; E11.9 Type 2 diabetes mellitus without complications; F41.9 Anxiety disorder, unspecified; M19.90 Unspecified osteoarthritis, unspecified site; Z85.828 Personal history of other malignant neoplasm of skin; Z86.010 Personal history of colon polyps; Z98.41 Cataract extraction status, right eye; Z98.42 Cataract extraction status, left eye; Z98.890 Other specified postprocedural states
CPT/HCPCS: 20553; J1030; J3490

== ENCOUNTER → 2021-05-06 | Outpatient (CLI) | payer MEDICARE ==
[2020-04-02 09:13] VITALS: BP 130/54
[~2021-05-06] MED LIST changes: -LISI-517 PO; +LISI5TAB15 PO
--- NOTE | 2021-05-06 13:49 | PDOC ---
Progress Note - Pain Clinic Date of Service: DOS: DATE: 05/06/21 TIME: 13:45 Diagnosis: Dx: Myofascial pain Low back pain with lumbar radiculopathy lumbar degenerative disease Cervical radiculopathy with cervical degenerative disease Left shoulder joint pain with biceps tendinitis History or Present Illness: HPI: 80-year-old male returns for follow-up status post trigger point injections most recently January 19, 2021 patient did very well reports pain is increasing now in the base the neck and shoulders upper back mid back low back specially on the right side more than left patient ports is worse with walking standing change of dishes feels tight and static in the low back and the mid back as well as the neck and shoulders somewhat more on the right than the left and present in the left shoulder as well patient reported sharp can be constant up-and-down severe patient rates as a 6-10 on scale 10 at average 10 at its worst and a 6 at its least is a 7 today. Patient reports no bowel bladder incontinence reports his last injection reported about 90% improvement after returning now over the past 1 to 2 weeks. Patient reports no bowel or bladder incontinence no motor deficits. Physical Exam: VS: Blood pressure is 112/59 pulse 67 respirations 18 temperature 98.0 F weight is 180 pounds. PE: PHYSICAL EXAMINATION: GENERAL: The patient is awake, alert, oriented, appropriate, very pleasant in demeanor HEENT: Shows normocephalic, atraumatic. Extraocular movements are intact and symmetrical. Oral cavity: Mucous membranes moist and pink. NECK: Shows anterior throat supple without palpable lymphadenopathy noted. Swallow reflex symmetrical. CHEST: Shows normal on inspection. Breath sounds are clear bilaterally, no rales or rhonchi. HEART: Shows S1, S2 clear. No murmurs auscultated. ABDOMEN: Soft, nontender, nondistended, obese. No palpable organomegaly is noted. BACK: Shows spine grossly in the midline. Normal-appearing cervical lordotic curvature. Cervical paraspinous muscles show symmetrical inspection, on palpation some multiple areas of very firm ropelike musculature consistent with trigger point areas of musculature in the bilateral superior medial and inferior aspect of the cervical paraspinous muscle also into the superior medial trapezius more on the right than the left but present bilaterally very firm ropelike musculature very tender and consistent with trigger point areas of musculature. Patient thoracic spine shows tenderness as well more on the right than the left with very firm ropelike musculature consistent with trigger point areas into the suprascapular and infrascapular regions on the right only left is supple. Patient's lumbar spine shows very firm ropelike musculature again more on the right than the left but present bilaterally without radiation but with very firm ropelike muscles consistent with trigger point areas of musculature. There is slightly increased thoracic kyphosis, some minor flattening of the lumbar lordotic curvature. Lumbar paraspinous muscles show symmetrical on inspection, on palpation shows some moderate tenderness diffusely throughout the upper, middle and lower distribution of the paraspinous muscles without specific trigger points, without radiation of pain. The patient has good rotational motion of the lumbar spine, both laterally as well as extension and flexion without significant difficulty. EXTREMITIES: Lower extremities show deep tendon reflexes 1 in the patellar and tendo calcaneus tendons. Motor exam is 4 on a scale of 5 with right dorsiflexion, extension, quadriceps and hamstring flexion and 4/5 on the left. Peripheral pulses are 1+ posterior tibial. No peripheral edema is noted bilaterally. Lower extremities are warm and dry to touch, equal in color and appearance. SKIN: Shows warm and dry, good turgor. No edema. No sores, rashes or bruising throughout. Procedure: Procedure: Options were discussed with the patient. Patient's old chart reviewed his current medication regimen updated current review of systems updated today as well. We will proceed with trigger point injections of the aforementioned and identified musculature. Risk were discussed including but not limited to bleeding infection possibility of intravascular injection sequelae spread local anesthetic numbness pneumothorax side effects steroid medication portals regarding pain control. Patient understands wished to proceed. Patient return to clinic in approximate 4 weeks for follow-up, was counseled return appointment, activity level, and side effects to be aware of. Medication Injected: Med Injected: Under sterile prep and drape patient sitting position triggerpoints were identified in the cervical paraspinous posterior trapezius musculature suprascapular and infrascapular musculature on the right thoracic paraspinous posture bilaterally as well as bilateral lumbar paraspinous musculature and injected using 25-gauge needle a total of 14 cc 0.25 significant after negative aspiration each injection site and 120 mg Depo-Medrol total. Patient tolerated procedure well had no complications. Condition at Discharge: Condition at Discharge: Condition at discharge is stable, patient tolerated the procedure well and had no complications. CEM SEALS MD May 06, 2021 13:49
--- NOTE | 2021-05-06 13:50 | PDOC4 ---
Procedure Note: ICD 10 Code: ICD 10 Code: M60.89 Procedure Note: Patient was consented for trigger point injections. Risk were discussed including not limited to bleeding infection possibility of intravascular injection sequelae spread local anesthetic numbness side effects steroid medication pneumothorax and portals regarding pain control. Patient understands wished to proceed. Under sterile prep and drape patient sitting position triggerpoints were identified in the cervical paraspinous posterior trapezius musculature suprascapular and infrascapular musculature on the right thoracic paraspinous posture bilaterally as well as bilateral lumbar paraspinous musculature and injected using 25-gauge needle a total of 14 cc 0.25 significant after negative aspiration each injection site and 120 mg Depo-Medrol total. Patient tolerated procedure well had no complications. CEM SEALS MD May 06, 2021 13:50
== END | disposition home or self-care (01) ==
LOC: PNCL 12:36
PROVIDERS: ATTEND Anesthesiology
DX: M79.18 Myalgia, other site (principal); M51.16 Intervertebral disc disorders with radiculopathy, lumbar region; M48.061 Spinal stenosis, lumbar region without neurogenic claudication; M50.10 Cervical disc disorder with radiculopathy, unspecified cervical region; M25.512 Pain in left shoulder; I10 Essential (primary) hypertension; E11.9 Type 2 diabetes mellitus without complications; N40.0 Benign prostatic hyperplasia without lower urinary tract symptoms; E78.00 Pure hypercholesterolemia, unspecified; F41.9 Anxiety disorder, unspecified; M19.90 Unspecified osteoarthritis, unspecified site; Z98.890 Other specified postprocedural states; Z79.899 Other long term (current) drug therapy; Z85.828 Personal history of other malignant neoplasm of skin
CPT/HCPCS: 20553; J1030; J3490

== ENCOUNTER → 2021-05-23 | Outpatient (CLI) | payer MEDICARE ==
[2020-04-02 09:13] VITALS: BP 130/54
[~2021-05-23] MED LIST changes: -BUPIVACAINE MPF 0.25% 10 ML VIAL. ONE; +IOHEXOL 180 MG/ML 10 ML VIAL. ONE; +methylPREDNISolone ACETATE 80 MG/ML VIAL. ONE
--- NOTE | 2021-05-23 10:14 | PDOC ---
Progress Note - Pain Clinic Date of Service: DOS: DATE: 05/23/21 TIME: 10:11 Diagnosis: Dx: Myofascial pain Low back pain with lumbar radiculopathy and lumbar degenerative disease Cervical radiculopathy with cervical degenerative disease Left shoulder joint pain with biceps tendinitis History or Present Illness: HPI: 80-year-old male returns for follow-up status post trigger point injections on his last visit which was May 06. Patient reports did very well after that but is having significant pain now in the low back and into the right lower extremity posterior gluteus posterior lateral thigh lateral anterior thigh anterior medial thigh across the low back on the right side only patient reports has been going on for about 1 month now increasing in intensity to the leg as well as the low back patient reports is only on the side but across the low back and neck especially focused in the middle and right side of the low back patient reports is a 9 on scale 10 is worse over the past week 8 on average 6 at its least and is an 8 today patient reports sharp and aching constant in the morning once he gets up and around it seems to ease up but is never gone patient report is worse with standing walking changing positions better with sitting or laying down generally is not awakening from sleep at night patient reports no bowel or bladder incontinence no loss of motor function with significant fatigability with the right leg compared to the left with standing and walking. Physical Exam: VS: Blood pressure was 146/69 pulse 59 respirations are 16 temperature 97.8 F height is 5 feet 10 inches weight is 179 pounds. PE: PHYSICAL EXAMINATION: GENERAL: The patient is awake, alert, oriented, appropriate, very pleasant in demeanor HEENT: Shows normocephalic, atraumatic. Extraocular movements are intact and symmetrical. NECK: Shows anterior throat supple without palpable lymphadenopathy noted. Swallow reflex symmetrical. CHEST: Shows normal on inspection. Breath sounds are clear bilaterally, distant but no rales or rhonchi. HEART: Shows S1, S2 clear. No murmurs auscultated. ABDOMEN: Soft, nontender, nondistended. No palpable organomegaly is noted. BACK: Shows spine grossly in the midline. Normal-appearing cervical lordotic curvature. There is increased thoracic kyphosis, some flattening of the lumbar lordotic curvature. Lumbar paraspinous muscles show symmetrical on inspection, on palpation shows some moderate tenderness diffusely throughout the upper, middle and lower distribution of the paraspinous muscles, but without specific trigger points, without radiation of pain. The patient has good rotational motion of the lumbar spine, both laterally as well as extension and flexion without significant difficulty. No tenderness over the spinous processes, sacrum or sacroiliac regions. EXTREMITIES: Lower extremities show deep tendon reflexes 1+ in the patellar and tendo calcaneus tendons. Motor exam is 4 on a scale of 5 with right dorsiflexion, extension, quadriceps and hamstring flexion and 4/5 on the left. Peripheral pulses are 1+ posterior tibial. No peripheral edema is noted bilaterally. Lower extremities are warm and dry to touch, equal in color and appearance. SKIN: Shows warm and dry, good turgor. No edema. No sores, rashes or bruising throughout. Procedure: Procedure: Options discussed with the patient. Patient chart was reviewed his current medication regimen updated current review of systems updated today as well. We will proceed with a lumbar epidural steroid injection today with fluoroscopic guidance. Risks were discussed including but not limited to: Bleeding, infection, possibility of epidural hematoma and subsequent neurological compromise, dural puncture, headaches, spinal cord and/or nerve damage, side effects of steroid medication, and poor results regarding pain control. Patient understands and wished to proceed. Patient will return to the clinic in approximately 2 weeks for follow-up, was counseled as to return appointment, activity level, and side effect to be aware of. Medication Injected: Med Injected: Procedure is lumbar epidural steroid injection under local anesthetic using sterile prep and drape at the L4-5 level using C-arm fluoroscopic guidance in both AP and lateral views medications injected is 120 mg Depo-Medrol +10mL preservative-free normal saline and 2 mL contrast- condition at discharge is stable patient tolerated procedure well had no complications. Condition at Discharge: Condition at Discharge: Condition at discharge stable, paced tolerated procedure well and had no co mplications. CEM SEALS MD May 23, 2021 10:14
--- NOTE | 2021-05-23 10:15 | PDOC4 ---
Procedure Note: ICD 10 Code: ICD 10 Code: M54.16 M51.36 Procedure Note: Patient was consented for lumbar epidural steroid injection with fluoroscopic guidance. Risks were discussed including but not limited to: Bleeding, infection, possibility of epidural hematoma and subsequent neurological compromise, dural puncture, headaches, spinal cord and/or nerve damage, side effects of steroid medication, and poor results regarding pain control. Patient understands and wished to proceed. Procedure is lumbar epidural steroid injection under local anesthetic using sterile prep and drape at the L4-5 level using C-arm fluoroscopic guidance in both AP and lateral views medications injected is 120 mg Depo-Medrol +10mL preservative-free normal saline and 2 mL contrast- condition at discharge is stable patient tolerated procedure well had no complications. CEM SEALS MD May 23, 2021 10:15
== END | disposition home or self-care (01) ==
LOC: PNCL 09:37
PROVIDERS: ATTEND Anesthesiology
DX: M51.16 Intervertebral disc disorders with radiculopathy, lumbar region (principal); M79.18 Myalgia, other site; M54.50 Low back pain, unspecified; M50.10 Cervical disc disorder with radiculopathy, unspecified cervical region; M75.22 Bicipital tendinitis, left shoulder; I10 Essential (primary) hypertension; N40.0 Benign prostatic hyperplasia without lower urinary tract symptoms; E11.9 Type 2 diabetes mellitus without complications; E78.00 Pure hypercholesterolemia, unspecified; F41.9 Anxiety disorder, unspecified; Z79.899 Other long term (current) drug therapy; Z98.890 Other specified postprocedural states
CPT/HCPCS: 62323; J1030; J1040; Q9965

== ENCOUNTER → 2021-07-20 | Outpatient (CLI) | payer MEDICARE ==
[2020-04-02 09:13] VITALS: BP 130/54
[~2021-07-20] MED LIST changes: +BUPIVACAINE MPF 0.25% 10 ML VIAL. ONE; -IOHEXOL 180 MG/ML 10 ML VIAL. ONE; -methylPREDNISolone ACETATE 40 MG/ML VIAL. ONE
--- NOTE | 2021-07-20 12:45 | PDOC4 ---
Procedure Note: ICD 10 Code: ICD 10 Code: M60.89 Procedure Note: Patient was consented for trigger point injections. Risk were discussed including not limited to bleeding infection possibility intravascular injection sequelae spread local acetic numbness side effects steroid medication pneumothorax as well as poor results regarding pain control. Patient understands wished to proceed. Patient sitting position under sterile prep and drape upper and middle distribution of the thoracic paraspinous posture was sterilely prepped and draped as was the upper middle lower distribution of the lumbar paraspinous musculature in the gluteus musculature bilaterally using a 25-gauge needle after negative aspiration each injection trigger point injections were carried out throughout the thoracic paraspinous procedure bilaterally, lumbar paraspinous muscles bilaterally, gluteus muscular bilaterally. Total of 12 cc 0.25% Vivacaine and total of 40 mg Depo-Medrol was injected. Patient tolerated the procedure well and had no complications. CEM SEALS MD Jul 20, 2021 12:45
--- NOTE | 2021-07-20 12:45 | PDOC ---
Progress Note - Pain Clinic Date of Service: DOS: DATE: 07/20/21 TIME: 12:39 Diagnosis: Dx: Myofascial pain Low back pain with lumbar radiculopathy and lumbar degenerative disc disease Cervical radiculopathy with cervical degenerative disease Left shoulder joint pain with biceps tendinitis History or Present Illness: HPI: 80-year-old male returns for follow-up status post lumbar epidural steroid in [facility] last seen May 23, 2021 patient reports did very well with this in his low back and legs are doing much better but he is having significant pain in the low back itself which is spastic and tight also with pain in the mid upper back as well as the medial shoulders posteriorly patient reports is getting very tight and aching also dull cramping and stabbing at times in the upper back mid back and the low back also into the superior aspect of the hips posteriorly patient reports pain is a 9 on scale 10 is worse over the past week 8 on average 8 its least is an 8 today patient Ia[place] is sharp and aching on and off in intensity worse with changing positions getting up from a seated position especially he feels it in the lower back and hips but no radiation to the lower extremities at this time. Patient reports after his last injection his right leg is doing much better as is the pain in the back generally but the more spastic pain now is becoming more noticeable as is the mid upper back pain which is different from his last visit as well. Patient reports no motor or sensory deficits no bowel or bladder incontinence. Physical Exam: VS: Blood pressure is 143/57 pulse 65 respirations 20 temperature 98.0 F height 5 feet 10 inches weight is 179 pounds PE: PHYSICAL EXAMINATION: GENERAL: The patient is awake, alert, oriented, appropriate, very pleasant demeanor, patient accompanied by his spouse HEENT: Shows normocephalic, atraumatic. Extraocular movements are intact and symmetrical. Oral cavity: Mucous membranes moist and pink. NECK: Shows anterior throat supple without palpable lymphadenopathy noted. Swallow reflex symmetrical. CHEST: Shows normal on inspection. Breath sounds are clear bilaterally, distant but no rales or rhonchi are auscultated. HEART: Shows S1, S2 clear. No murmurs auscultated. ABDOMEN: Soft, nontender, nondistended. No palpable organomegaly is noted. BACK: Shows spine grossly in the midline. Normal-appearing cervical lordotic curvature. There is slightly increased thoracic kyphosis, some minor flattening of the lumbar lordotic curvature. Lumbar paraspinous muscles show symmetrical on inspection, on palpation shows some moderate tenderness diffusely throughout the upper, middle and lower distribution of the paraspinous muscles bilaterally with very firm ropelike musculature in the thoracic paraspinous musculature bilaterally as well as into the lumbar paraspinous muscular bilaterally upper middle and lower distribution also into the superior medial gluteus more on the right than the left but present bilaterally with very firm ropelike muscular consistent with trigger point areas of musculature as well. Patient has easily palpable spinal cord stimulator generator in the left superior gluteus laterally as well. The patient has good rotational motion of the lumbar spine, both laterally as well as extension and flexion without significant difficulty. No tenderness over the spinous processes, sacrum or sacroiliac regions. EXTREMITIES: Lower extremities show deep tendon reflexes 1+ in the patellar and tendo calcaneus tendons. Motor exam is 4 on a scale of 5 with right dorsiflexion, extension, quadriceps and hamstring flexion and 4/5 on the left. Peripheral pulses are 1+ posterior tibial. No peripheral edema is noted bilaterally. Lower extremities are warm and dry. SKIN: Shows warm and dry, good turgor. No edema. No sores, rashes or bruising throughout. Procedure: Procedure: Options were discussed with the patient. Patient's old chart was reviewed as his current medication regimen updated current review of systems updated today as well. We will proceed with trigger point injections of the bilateral thoracic paraspinous posterior bilateral lumbar paraspinous muscles and bilateral gluteus musculature. Risk were discussed including but not limited to bleeding infection possibility of intravascular injection sequelae spread local anesthetic numbness pneumothorax side effects of steroid medication and poor results regarding pain control. Patient understands wished to proceed. Patient return to clinic in approximately 4 weeks for follow-up, was counseled as to return appointment, activity level, and side effect to be aware of. Medication Injected: Med Injected: Patient sitting position under sterile prep and drape upper and middle distribution of the thoracic paraspinous posture was sterilely prepped and draped as was the upper middle lower distribution of the lumbar paraspinous musculature in the gluteus musculature bilaterally using a 25-gauge needle after negative aspiration each injection trigger point injections were carried out throughout the thoracic paraspinous procedure bilaterally, lumbar paraspinous muscles bilaterally, gluteus muscular bilaterally. Total of 12 cc 0.25% Vivacaine and total of 40 mg Depo-Medrol was injected. Patient tolerated the procedure well and had no complications. Condition at Discharge: Condition at Discharge: Condition at discharge stable, patient tolerated the procedure well and had no complications. CEM SEALS MD Jul 20, 2021 12:45
== END | disposition home or self-care (01) ==
LOC: PNCL 11:58
PROVIDERS: ATTEND Anesthesiology
DX: M79.18 Myalgia, other site (principal); M51.16 Intervertebral disc disorders with radiculopathy, lumbar region; M50.10 Cervical disc disorder with radiculopathy, unspecified cervical region; M75.22 Bicipital tendinitis, left shoulder; I12.9 Hypertensive chronic kidney disease with stage 1 through stage 4 chronic kidney disease, or unspecified chronic kidney disease; N18.9 Chronic kidney disease, unspecified; E78.00 Pure hypercholesterolemia, unspecified; E11.22 Type 2 diabetes mellitus with diabetic chronic kidney disease; N40.0 Benign prostatic hyperplasia without lower urinary tract symptoms; M19.90 Unspecified osteoarthritis, unspecified site; Z79.899 Other long term (current) drug therapy; Z98.890 Other specified postprocedural states
CPT/HCPCS: 20553; J1040; J3490

== ENCOUNTER → 2021-07-26 | Outpatient (CLI) | payer MEDICARE ==
[2020-04-02 09:13] VITALS: BP 130/54
[~2021-07-26] MED LIST changes: -BUPIVACAINE MPF 0.25% 10 ML VIAL. ONE; -methylPREDNISolone ACETATE 80 MG/ML VIAL. ONE
--- NOTE | 2021-07-27 11:45 | RAD ---
MR#: [id number] Date of Study: 07/26/2021 Ordering Physician: ANTWAN MARTINEZ, Referring Physician: FRANCES GORDON Tech: RT Fiona (R) (N) APPROVED REPORT Test Type: Exercise Stress Nurse/Tech: KELLIE JUÁREZ Test Indications: STABLE ANGINA Cardiac History: HTN- SEE EMR Medications: SEE EMR Medical History: SEE EMR Resting ECG: SB W/ 1ST DEGREE AVB Resting Heart Rate: 58 bpm Resting Blood Pressure: 145/61mmHg Pretest Chest Pain: No chest pain Nurse/Tech Notes S1,S2, LUNGS CTA, DENIED CHEST PAIN OR SHORTNESS OF AIR. VSS. Consent: The procedure was explained to the patient in lay terms. Informed consent was witnessed. Booige eout was entered into [employer]. History and Stress Test performed by RT Fiona (R) (N) Stress Symptoms PT TOLERATED TESTING WELL, DENIED CHEST PAIN, ONLY COMPLAINT WAS SHORTNESS OF BREATH DURING THE FINAL PHASE, SYMPTOMS RESOLVED ONCE PATIENT SAT DOWN. ARTIFACT NOTED ON EKG DURING EXERCISE. POST EXERCISE Reason for Termination: Reached target heart rate Target HR: 119 Max HR: 135 bpm 96% of Maximum Predicted HR: 140 bpm Exercise duration: 4:02 min:sec, 2 Stage Exercise capacity: 7.0METs Max Blood Pressure: 172/64mmHg Blood Pressure response to exercise: Normal blood pressure response during stress. Heart Rate response to exercise: WNL Chest Pain: No. Arrhythmia: Yes. DURING THE RESTING STAGE, SEVERAL PAUSES NOTED AND BBB ON EKG. PT DENIED ALL SYMPTOM S DURING REST. INTERPRETATION Stress EKG Conclusion: The resting EKG showed a sinus rhythm with a prolonged AR interval and nonspec ific ST-T wave changes. The stress EKG showed no significant changes from baseline. No EKG evidence of stress-induced ischemia. Imaging Protocol IMAGE PROTOCOL: Rest Tc-99m/stress Tc-99m 1 day Rest: Stress: Viability: Radiopharm.Tc99m [id number] Sestamibi Dose10.5mCi 30mCi Duration 15min. 10min. Img Date 07/26/2021 07/26/2021 Inj-Img [id number]. 60min. Rest Admin Site:IV - Right AntecubitalAdministrator:MARK Villalta, ARRT (R)(N) Stress Admin Site: IV - Right AntecubitalAdministrator: MARK Villalta, ARRT (R)(N) STRESS DATA End Diast. Vol.80.0mlAv. Heart Rate77.0bpm End Syst. Vol.20.0mlCO Index BSA0.0L/min Myocardial Rthl564.0gEject. Bnxqistx83.0% Stress Rates Pk. Fill Rate3.11EDV/secLVtime Pk. Fill 227.40msec Pk. Empty Rate4.94ESV/secLVtime Pk. Gyyjm023.65msec 06/20 Pk. Fill1.43EDV/sec Stress Scores Regional WT0.00Summed WT0.00 Regional WM0.00Summed WM0.00 LV Perfusion The stress scans showed no significant defects. The rest scans showed no significant defects. Nuclear imaging shows no reversible ischemia or infarct. Wall Motion Intact LV systolic function with an ejection fraction of 75%. LV Perf. Quant 17 Seg. SSS0.00 17 Seg. SRS4.00 17 Seg. SDS0.00 Stress Defect Extent (% LAD)0.00Rest Defect Extent (% LAD)10.60Rev. Defect Extent (% LAD)0.00 Stress Defect Extent (% LCX) 5.00Rest Defect Extent (% LCX)20.00Rev. Defect Extent (% LCX)0.00 Stress Defect Extent (% RCA)0.00Rest Defect Extent (% RCA)0.00Rev. Defect Extent (% RCA)0.00 Stress Defect Extent (% MIKAL)0.90Rest Defect Extent (% MIKAL)9.10Rev. Defect Extent (% MIKAL)0.00 Conclusion 1. Reasonable exercise tolerance. 2. No EKG evidence of stress-induced ischemia. 3. Several brief less than 1.5-second pauses during recovery. 4. Nuclear imaging shows no reversible ischemia or infarct. 5. Normal left ventricular systolic function with an ejection fraction of 75%. 6. Moderately low risk Lexiscan nuclear stress test. Signed by : Alexei Burden MD Electronically Approved : 07/27/2021 11:45:09
== END ==
LOC: NM 07:56
PROVIDERS: ATTEND Internal Medicine Cardiovascular Disease
DX: I20.8 Other forms of angina pectoris (principal)
CPT/HCPCS: 78452; 93017; A9500

== ENCOUNTER → 2021-09-30 | Outpatient (CLI) | payer MEDICARE ==
[2020-04-02 09:13] VITALS: BP 130/54
[~2021-09-30] MED LIST changes: +BUPIVACAINE MPF 0.25% 10 ML VIAL. ONE; +DEXAMETHASONE PRES.FREE 10 MG/ML VIAL. ONE
--- NOTE | 2021-09-30 11:49 | PDOC4 ---
Procedure Note: ICD 10 Code: ICD 10 Code: M60.89 Procedure Note: Patient was consented for trigger point injections bilateral cervical paraspinous posterior, bilateral trapezius muscular, bilateral thoracic paraspinous muscles, bilateral lumbar paraspinous musculature. Risk were discussed including but not limited to bleeding infection possibility of intravascular injection sequelae spread local anesthetic numbness pneumothorax side effects of steroid medication exposure fluoroscopy and portals regarding pain control. Patient understands wished to proceed. Patient sitting position under sterile prep and drape triggerpoints were identified and using 25-gauge needle injected with negative aspiration each injection site at the bilateral cervical paraspinous muscles or bilateral trapezius muscular bilateral thoracic paraspinous muscular bilateral lumbar paraspinous musculature. Total of 18 cc 0.25% bupivacaine and total of 20 mg dexamethasone. Patient tolerated procedure well and had no complications. CEM SEALS MD Sep 30, 2021 11:49
--- NOTE | 2021-09-30 11:49 | PDOC ---
Progress Note - Pain Clinic Date of Service: DOS: DATE: 09/30/21 TIME: 11:43 Diagnosis: Dx: Myofascial pain Lumbar radiculopathy with lumbar degenerative disease Cervical radiculopathy with cervical degenerative disease Left shoulder joint pain with biceps tendinitis History or Present Illness: HPI: 81-year-old male returns for follow-up status post trigger point junctions as well as lumbar epidural steroid injection did very well for about a month after last visit with 75% improvement with the trigger point injections. Patient reports pain is beginning to return now the tight stiff pain the base the neck at the sides of the neck to the upper base of the skull as well as into the shoulders upper back mid back and into the low back especially on the right side it posterior aspect of the hip patient reports an 8-9 on scale 10 is worst average and a 6 at its least is an 8 today patient described sharp alternating with burning cramping tight shooting can be constant as well with activity worse with standing walking changing positions or sitting for prolonged period greater than 20 to 30 minutes patient reports is difficult riding in car because of the postural changes and sitting especially in the neck and shoulders. Patient reports no loss of motor function no bowel or bladder incontinence with significant stiff pain throughout the neck shoulders upper back mid back and low back. Patient is doing stretching exercises at home as well as heat applications and cold applications which helped very temporarily. Patient reports no loss of motor function no bowel or bladder incontinence. Physical Exam: VS: Blood pressure is 149/60 pulse 60 respirations 18 temperature is 90.3 F height is 5 foot 10 inches weight 175 pounds. PE: PHYSICAL EXAMINATION: GENERAL: The patient is awake, alert, oriented, appropriate, very pleasant in demeanor HEENT: Shows normocephalic, atraumatic. Extraocular movements are intact and symmetrical. Patient wearing eyeglasses. NECK: Shows anterior throat supple without palpable lymphadenopathy noted. Swallow reflex symmetrical. CHEST: Shows normal on inspection. Breath sounds are clear bilaterally, distant but no rales rhonchi wheezes auscultated. HEART: Shows S1, S2 clear. No murmurs auscultated. ABDOMEN: Soft, nontender, nondistended. No palpable organomegaly is noted. BACK: Shows spine grossly in the midline. Normal-appearing cervical lordotic curvature. Cervical paraspinous muscles show symmetrical with inspection on palpation some very firm ropelike musculature very tender with palpation bilaterally in the middle and lower distribution the paraspinous musculature as well as into the superior medial and lateral trapezius as well as in the medial and inferior trapezius bilaterally again worse on the left the right than the left without radiation but with very firm ropelike muscular consistent with trigger point areas of musculature. There is slightly increased thoracic kyphosis, some minor flattening of the lumbar lordotic curvature. Lumbar richelle pinous muscles show symmetrical on inspection, on palpation shows some moderate tenderness diffusely throughout the upper, middle and lower distribution of the paraspinous musculature, with significant tenderness very firm ropelike musculature in the mid upper and lower distribution the paraspinous musculature in the lumbar distribution consistent with trigger point areas of musculature without specific radiation more on the right than the left but present bilaterally. The patient has good rotational motion of the lumbar spine, both laterally as well as extension and flexion without significant difficulty. For EXTREMITIES: Lower extremities show deep tendon reflexes 1+ in the patellar and tendo calcaneus tendons. Motor exam is 4 on a scale of 5 with right dorsiflexion, extension, quadriceps and hamstring flexion and 4/5 on the left. Peripheral pulses are 1+ posterior tibial. No peripheral edema is noted bilaterally. Lower extremities are warm and dry to touch, equal in color and appearance. 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 SKIN: Shows warm and dry, good turgor. No edema. No sores, rashes or bruising throughout. Procedure: Procedure: Options were discussed with the patient. Patient's old chart was reviewed his his current medication regimen updated current review of systems updated today as well. We will proceed with trigger point injections of the identified musculature in the bilateral cervical paraspinous muscular bilateral trapezius muscular bilateral thoracic paraspinous muscular bilateral lumbar paraspinal musculature. Risk were discussed including but not limited to bleeding infection possibility of intravascular injection sequelae spread local anesthetic numbness pneumothorax side effects steroid medication, and poor results regarding pain control. Patient understands wished to proceed. Patient will return to clinic in approximately 4 weeks for follow-up, was counseled as to return appointment, activity level, and side effects to be aware of. Medication Injected: Med Injected: Patient sitting position under sterile prep and drape triggerpoints were identified and using 25-gauge needle injected with negative aspiration each injection site at the bilateral cervical paraspinous muscles or bilateral trapezius muscular bilateral thoracic paraspinous muscular bilateral lumbar paraspinous musculature. Total of 18 cc 0.25% bupivacaine and total of 20 mg dexamethasone. Patient tolerated procedure well and had no complications. Condition at Discharge: Condition at Discharge: Condition at discharge is stable, paced tolerated procedure well and had no complications. CEM SEALS MD Sep 30, 2021 11:49
== END | disposition home or self-care (01) ==
LOC: PNCL 10:33
PROVIDERS: ATTEND Anesthesiology
DX: M79.18 Myalgia, other site (principal); M51.16 Intervertebral disc disorders with radiculopathy, lumbar region; M50.10 Cervical disc disorder with radiculopathy, unspecified cervical region; M75.22 Bicipital tendinitis, left shoulder; I12.9 Hypertensive chronic kidney disease with stage 1 through stage 4 chronic kidney disease, or unspecified chronic kidney disease; N18.9 Chronic kidney disease, unspecified; E11.22 Type 2 diabetes mellitus with diabetic chronic kidney disease; E78.00 Pure hypercholesterolemia, unspecified; M19.90 Unspecified osteoarthritis, unspecified site; N40.0 Benign prostatic hyperplasia without lower urinary tract symptoms; F41.9 Anxiety disorder, unspecified; Z85.828 Personal history of other malignant neoplasm of skin; Z79.899 Other long term (current) drug therapy; Z98.890 Other specified postprocedural states
CPT/HCPCS: 20553; J1100; J3490

== ENCOUNTER → 2021-10-18 | Outpatient (CLI) | payer MEDICARE ==
[2020-04-02 09:13] VITALS: BP 130/54
[~2021-10-18] MED LIST changes: -BUPIVACAINE MPF 0.25% 10 ML VIAL. ONE; -DEXAMETHASONE PRES.FREE 10 MG/ML VIAL. ONE
--- NOTE | 2021-10-18 11:59 | PDOC ---
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 History or Present Illness: HPI: 81-year-old male returns for follow-up status post trigger point injections of bilateral cervical trapezius thoracic paraspinous and lumbar paraspinous posture with good results patient reports about 50 to 60% improvement his chief complaint today however is low back pain radiating to the right lower extremity posterior gluteus posterior thigh posterior lateral thigh anterior medial thigh medial lower leg into the calf medially into the groin as well at times patient ports aching and sharp stabbing can be radiating in the right leg severe in the morning when he first gets up and around patient reports is better with standing and moving but when he stands more than 20 to 30 minutes the pain increases patient reports is a 9 on scale 10 is worse over the past week 9 on average and 7 at its least is a 7 today. Patient reports better with sitting or laying down generally is not painful at night does not awaken her from sleep at night patient reports no bowel or bladder incontinence. Physical Exam: VS: Blood pressure is 161/63 pulse 63 respirations 18 temperature 98.2 F weight is 176 pounds. PE: PHYSICAL EXAMINATION: GENERAL: The patient is awake, alert, oriented, appropriate, very pleasant in demeanor HEENT: Shows normocephalic, atraumatic. Extraocular movements are intact and symmetrical. Oral cavity: Mucous membranes moist and pink. Dentition is intact. NECK: Shows anterior throat supple without palpable lymphadenopathy noted. Swallow reflex symmetrical. CHEST: Shows normal on inspection. Breath sounds are clear bilaterally, no rales rhonchi or wheezes auscultated. HEART: Shows S1, S2 clear. No murmurs auscultated. ABDOMEN: Soft, nontender, nondistended. No palpable organomegaly is noted. BACK: Shows spine grossly in the midline. Normal-appearing cervical lordotic curvature. There is moderately increased thoracic kyphosis, some flattening of the lumbar lordotic curvature. Lumbar paraspinous muscles show symmetrical on inspection, on palpation shows some moderate tenderness diffusely throughout the upper, middle and lower distribution of the paraspinous muscles without specific trigger points, without radiation of pain. The patient has good rotational motion of the lumbar spine, both laterally as well as extension and flexion without significant difficulty. EXTREMITIES: Lower extremities show deep tendon reflexes 1+ in the patellar and tendo calcaneus tendons. Motor exam is 4 on a scale of 5 with right dorsiflexion, extension, quadriceps and hamstring flexion and 4/5 on the left. Peripheral pulses are 1 posterior tibial. No peripheral edema is noted bilaterally. Lower extremities are warm and dry. SKIN: Shows warm and dry, good turgor. No edema. No sores, rashes or bruising throughout. Procedure: Procedure: Options were discussed with the patient. Patient's old chart was reviewed his his current medication regimen updated current review of systems updated today as well. We will proceed with a lumbar epidural steroid injection today with fluoroscopic guidance risks were discussed including but not limited to: Bleeding, infection, possibility of epidural hematoma and subsequent neurological compromise, dural puncture, headaches, spinal cord and/or nerve damage, side effects of steroid medication, and poor results regarding pain control. Patient understands and wished to proceed. Patient will return to the clinic in approximately 2 weeks for follow-up, was counseled as to return appointment, active level, and side effects to be aware of. Medication Injected: Med Injected: Procedure is lumbar epidural steroid injection under local anesthetic using sterile prep and drape at the L4-5 level using C-arm fluoroscopic guidance in both AP and lateral views medications injected is 20 mg dexamethasone +10mL preservative-free normal saline and 2 mL contrast- condition at discharge is stable patient tolerated procedure well had no complications. Condition at Discharge: Condition at Discharge: Condition at discharge is stable, patient tolerated the procedure well and had no complications. CEM SEALS MD October 18, 2021 11:59
--- NOTE | 2021-10-18 12:00 | PDOC4 ---
Procedure Note: ICD 10 Code: ICD 10 Code: M54.16 M51.36 Procedure Note: Patient was consented for lumbar epidural steroid injection with fluoroscopic guidance. Risks were discussed including but not limited to: Bleeding, infection, possibility of epidural hematoma and subsequent neurological compromise, dural puncture, headaches, spinal cord and/or nerve damage, side effects of steroid medication, and poor results regarding pain control. Patient understands and wished to proceed. Procedure is lumbar epidural steroid injection under local anesthetic using sterile prep and drape at the L4-5 level using C-arm fluoroscopic guidance in both AP and lateral views medications injected is 20 mg dexamethasone +10mL preservative-free normal saline and 2 mL contrast- condition at discharge is stable patient tolerated procedure well had no complications. CEM SEALS MD October 18, 2021 12:00
== END | disposition home or self-care (01) ==
LOC: PNCL 10:04
PROVIDERS: ATTEND Anesthesiology
DX: M51.16 Intervertebral disc disorders with radiculopathy, lumbar region (principal); M79.18 Myalgia, other site; M50.10 Cervical disc disorder with radiculopathy, unspecified cervical region; M19.012 Primary osteoarthritis, left shoulder; M75.22 Bicipital tendinitis, left shoulder; I12.9 Hypertensive chronic kidney disease with stage 1 through stage 4 chronic kidney disease, or unspecified chronic kidney disease; E11.22 Type 2 diabetes mellitus with diabetic chronic kidney disease; N18.9 Chronic kidney disease, unspecified; E78.00 Pure hypercholesterolemia, unspecified; N40.0 Benign prostatic hyperplasia without lower urinary tract symptoms; F41.9 Anxiety disorder, unspecified; Z79.899 Other long term (current) drug therapy; Z98.890 Other specified postprocedural states
CPT/HCPCS: 62323